=== PATIENT | male | born 1995 | race Caucasian/White ===

== ENCOUNTER 2023-02-06 12:13 | Outpatient (OUT) | payer BC, SELFPAY ==
--- NOTE | 2023-02-06 12:52 | US_ITS ---
[address] [address] Patient Name: CLAUDINE ROSALES MRN: [id number] date: 1995 Sex: M Assigned Patient Location: LAB Current Patient Location: Accession/Order Number: [id number] Exam Date: 02/06/2023 13:00 Report Date: 02/07/2023 05:44 At the request of: FRAN WEBB Procedure: US soft tissue head and neck EXAM: US soft tissue head and neck HISTORY: Occipital Lymphadenopathy R59.0 ; palpable lump right occipital region COMPARISON: None. TECHNIQUE: Percutaneous ultrasound evaluation. FINDINGS: Hypoechoic 4 x 3 x 3 mm structure with central fatty hilum and subcutaneous fat of the right occipital region corresponding to patient's palpable lump. No appreciable flow on color Doppler. US/US soft tissue head and neck IMPRESSION: 1. Nonspecific subcutaneous nodules; suspect lymph node or inspissated sebaceous gland cyst. No overtly suspicious characteristics. Electronically authenticated by: MATT BARTH Date: 02/07/2023 05:44
--- NOTE | 2023-02-06 12:52 | US_ITS ---
The [address] [address] Patient Name: CLAUDINE ROSALES MRN: [id number] date: 1995 Sex: M Assigned Patient Location: LAB Current Patient Location: LAB Accession/Order Number: [id number] Exam Date: 02/06/2023 13:00 Report Date: 02/07/2023 05:51 At the request of: FRAN WEBB Procedure: US chest EXAM: US chest HISTORY: Abdominal Wall Lump R22.2 ; 3 palpable lumps felt for 2 months (1 over left chest wall, 2 over right upper quadrant of abdomen) COMPARISON: None. TECHNIQUE: Percutaneous ultrasound evaluation. FINDINGS: All 3 subcutaneous nodules are similar in appearance located within the subcutaneous fat, slightly hyperechoic compared to surrounding fat, without appreciable internal blood flow. The 2 lesions overlying the right upper quadrant measures 13 x 8 x 3 mm and 9 x 9 x 4 mm. Lesion over left chest wall measures 10 x 10 x 3 mm. US/US chest IMPRESSION: Nonspecific subcutaneous nodules corresponding to patient's palpable lumps; suspect lipoma or possibly neurofibroma. Ultrasound-guided biopsy could be performed of one of the lesions if clinically indicated. Electronically authenticated by: MATT BARTH Date: 02/07/2023 05:51
[2023-02-06 13:01] LABS: Estimated Average Glucose 82 mg/dL; Glycohemoglobin A1C 4.5 % (4.5-6.2)
[2023-02-06 13:37] LABS: Basophils Absolute Auto 0.1 10^3/uL (0.0-0.1); Basophils Percent Auto 0.9 % (0.2-2.0); Eosinophils Absolute Auto 0.5 10^3/uL (0.0-0.7); Eosinophils Percent Auto 6.6 % (0.9-7.0); Hematocrit 44.2 % (42.0-54.0); Hemoglobin 15.2 g/dL (14.0-18.0); Immature Granulocytes Abs Auto 0.01 10^3/uL (0.00-0.03); Immature Granulocytes Pct Auto 0.1 % (0.0-0.5); Lymphocytes Absolute Auto 2.1 10^3/uL (1.2-3.8); Lymphocytes Percent Auto 30.8 % (20.5-60.0); Mean Corpuscular HGB Conc 34.4 g/dL (29.9-35.2); Mean Corpuscular Hemoglobin 30.4 pg (25.9-34.0); Mean Corpuscular Volume 88.4 fL (80.0-94.0); Mean Platelet Volume 10.4 fL (9.5-13.5); Monocytes Absolute Auto 0.8 10^3/uL (0.3-0.8); Monocytes Percent Auto 11.4 % (1.7-12.0); Neutrophils Absolute Auto 3.5 10^3/uL (1.4-6.5); Neutrophils Percent Auto 50.2 % (43.0-75.0); Platelet Count 245 10^3/uL (150-450); Red Cell Distribution Width 12.5 % (11.0-15.0); White Blood Count 6.9 10^3/uL (4.0-11.0)
[2023-02-06 13:39] LABS: Alanine Aminotransferase 19 U/L (16-63); Albumin Globulin Ratio 1.5; Albumin Level 4.1 g/dL (3.4-5.0); Alkaline Phosphatase 41 U/L (46-116); Anion Gap 7.9; Aspartate Amino Transferase 9 U/L (15-37); BUN Creatinine Ratio 10.3; Bilirubin Direct 0.1 mg/dL (0.0-0.2); Bilirubin Total 0.5 mg/dL (0.2-1.0); Calcium 8.9 mg/dL (8.5-10.1); Carbon Dioxide 30.7 mmol/L (21.0-32.0); Chloride 101 mmol/L (98-107); Chol HDL Ratio 2.5; Cholesterol 126 mg/dL (<=200); Estimated GFR (African America >60 (>=60); Estimated GFR (Non-African Ame >60 (>=60); Globulin 2.7 g/dL; Glucose 70 mg/dL (74-106); HDL Cholesterol 51 mg/dL (40-60); LDL Cholesterol Calculated 63.2 mg/dL; Potassium 3.6 mmol/L (3.5-5.1); Sodium 136 mmol/L (136-145); Total Protein 6.8 g/dL (6.4-8.2); Triglycerides 59 mg/dL (<=150); VLDL CHOLESTEROL 11.8 mg/dL
== END 2023-02-06 12:14 | disposition home or self-care (01) ==
LOC: LAB 12:19
PROVIDERS: PCP Family Medicine; Visit Provider Family Medicine
DX: Z00.00 Encounter for general adult medical examination without abnormal findings (principal); R59.0 Localized enlarged lymph nodes; R22.2 Localized swelling, mass and lump, trunk
CPT/HCPCS: 36415; 76536; 76604; 80048; 80061; 80076; 83036; 84443; 85025

== ENCOUNTER 2023-06-06 10:56 | Emergency (ER) | payer BC, SELFPAY ==
[2023-06-06 11:17] VITALS: BP 116/61; PULSE 63; RESP 18; TEMP 36.6; O2SAT 98; BMI 30.2
--- NOTE | 2023-06-06 11:22 | XR_ITS ---
The [address] [address] Patient Name: CLAUDINE ROSALES MRN: [id number] date: 1995 Sex: M Assigned Patient Location: ER Current Patient Location: ER Accession/Order Number: [id number] Exam Date: 06/06/2023 11:40 Report Date: 06/06/2023 13:12 At the request of: SHABANA BALLARD Procedure: XR shoulder LT min 2V PROCEDURE: XR shoulder LT min 2V HISTORY: injury ; acute left neck and shoulder pain; no known injury COMPARISON: None. FINDINGS: BONES:No fracture, acute abnormality, or significant arthropathy. SOFT TISSUES:No visible soft tissue swelling. EFFUSION:None visible. OTHER: Negative. XR/XR shoulder LT min 2V IMPRESSION: 1. Normal examination. Electronically authenticated by: MATT BARTH Date: 06/06/2023 13:12
--- NOTE | 2023-06-06 11:32 | XR_ITS ---
The [address] [address] Patient Name: CLAUDINE ROSALES MRN: [id number] date: 1995 Sex: M Assigned Patient Location: ER Current Patient Location: ER Accession/Order Number: [id number] Exam Date: 06/06/2023 11:40 Report Date: 06/06/2023 13:11 At the request of: SHABANA BALLARD Procedure: XR cervical spine 2-3V EXAMINATION: XR cervical spine 2-3V HISTORY: atraumatic pain ; acute left neck and shoulder pain; no known injury COMPARISON: No relevant comparison available. FINDINGS: BONES: No significant spondylosis, scoliosis, fracture, or visible bony lesion. DISC SPACES: Mild narrowing C2-3. PARASPINOUS: Negative. No paraspinous abnormality is seen. OTHER: Negative. XR/XR cervical spine 2-3V IMPRESSION: 1. No appreciable acute abnormality. 2. Mild narrowing of the C2-3 disc space compared to other cervical levels; developmental versus degenerative disc disease. Electronically authenticated by: MATT BARTH Date: 06/06/2023 13:11
--- NOTE | 2023-06-06 11:34 | ED.NECK1 ---
HPI - Neck Pain/Injury General Chief Complaint: Neck Pain/Injury Stated Complaint: NECK/SHOULDER PAIN Time Seen by Provider: 06/06/23 11:28 Source: patient Mode of arrival: walk-in Limitations: no limitations History of Present Illness HPI Narrative: 27-year-old male presents for left-sided neck pain. He was getting rate did take his dog outside and it just opened the door. He hadn't fallen and his arm was not pulled on but he developed sudden pain on the left side of his neck. It severe and worse in certain positions. It seems to go towards his shoulder but it's the left side of his neck that hurting the most. Related Data Previous Rx's Medication Instructions Recorded acetaminophen 300 mg-codeine 30 mg 1 tab PO Q6H PRN pain 5 days #20 06/06/23 tablet tabs cyclobenzaprine 10 mg tablet 10 mg PO TID PRN muscle spasm #20 06/06/23 tabs Allergies Allergy/AdvReac Type Severity Reaction Status Date / Time Penicillins AdvReac Severe Hives Verified 06/06/23 11:17 Review of Systems ROS Narrative A ten point review of systems is negative except as noted above. PFSH PFSH Social History Smoking status: Current every day smoker Exam Narrative Exam Narrative: Nurses note and vital signs reviewed and patient is not hypoxic. General: The patient appears uncomfortable and is standing when I walk into the room Skin: Warm, dry, no pallor noted. There is no rash noted. Head: Normocephalic, atraumatic Eye: Normal conjunctiva, no drainage Ears, Nose, Mouth, and Throat: oral mucosa is moist. Nares patent. Cardiovascular: Regular Rate and Rhythm Respiratory: Patient is in no distress, no accessory muscle use, lungs are clear to auscultation, no wheezing, rales or rhonchi Back: thoracic and lumbar spines are nontender. The patient has some tenderness on the left side of his neck where there is no bruise rash swelling or masses. No deformity in his shoulder. Radial pulse 2+. GI: Normal bowel sounds, no tenderness to palpation, no masses appreciated. No rebound, guarding, or rigidity noted. Musculoskeletal: The patient has no evidence of calf tenderness, no pitting edema, symmetrical pulses noted bilaterally Neurological: A&O, normal speech Psychiatric: Cooperative Constitutional Vital Signs, click to edit/add: Last Vital Signs Temp 97.8 F 06/06/23 11:17 Pulse 63 06/06/23 11:17 Resp 18 06/06/23 11:17 BP 116/61 06/06/23 11:17 Pulse Ox 98 06/06/23 11:17 O2 Del Method Room Air 06/06/23 11:17 Course Vital Signs Vital signs: Vital Signs Temperature 97.8 F 06/06/23 11:17 Pulse Rate 63 06/06/23 11:17 Respiratory Rate 18 06/06/23 11:17 Blood Pressure 116/61 06/06/23 11:17 Pulse Oximetry 98 06/06/23 11:17 Oxygen Delivery Method Room Air 06/06/23 11:17 Temperature 97.8 F 06/06/23 11:17 Pulse Rate 63 06/06/23 11:17 Respiratory Rate 18 06/06/23 11:17 Blood Pressure 116/61 06/06/23 11:17 Pulse Oximetry 98 06/06/23 11:17 Oxygen Delivery Method Room Air 06/06/23 11:17 MDM - Neck Pain/Injury MDM Narrative Medical decision making narrative: X-ray findings are discussed with the patient and he is feeling improved. Sling applied and application checked by me and found to be appropriate, he is neurovascularly intact and is able to be discharged home. Treatment diagnosis and follow up are discussed with the patient. Differential Diagnosis Differential diagnosis: Likely other (muscle strain, cervical radiculopathy) Imaging Data shoulder, C-spine x-rays: Radiologist's impression: Procedure: XR cervical spine 2-3V EXAMINATION: XR cervical spine 2-3V HISTORY: atraumatic pain ; acute left neck and shoulder pain; no known injury COMPARISON: No relevant comparison available. FINDINGS: BONES: No significant spondylosis, scoliosis, fracture, or visible bony lesion. DISC SPACES: Mild narrowing C2-3. PARASPINOUS: Negative. No paraspinous abnormality is seen. OTHER: Negative. IMPRESSION: 1. No appreciable acute abnormality. 2. Mild narrowing of the C2-3 disc space compared to other cervical levels; developmental versus degenerative disc disease. Electronically authenticated by: MATT BARTH Date: 06/06/2023 13:11 Procedure: XR shoulder LT min 2V PROCEDURE: XR shoulder LT min 2V HISTORY: injury ; acute left neck and shoulder pain; no known injury COMPARISON: None. FINDINGS: BONES:No fracture, acute abnormality, or significant arthropathy. SOFT TISSUES:No visible soft tissue swelling. EFFUSION:None visible. OTHER: Negative. IMPRESSION: 1. Normal examination. Electronically authenticated by: MATT BARTH Date: 06/06/2023 13:12 Discharge Plan Discharge Chief Complaint: Neck Pain/Injury Clinical Impression: Trapezius muscle strain Patient Disposition: Home, Self-Care Time of Disposition Decision: 13:53 Condition: Good Mode of Transportation: Private Vehicle Prescriptions / Home Meds: New cyclobenzaprine 10 mg tablet 10 mg PO TID PRN (Reason: muscle spasm) Qty: 20 0RF acetaminophen-codeine 300-30 mg tablet 1 tab PO Q6H PRN (Reason: pain) 5 Days Qty: 20 0RF Instructions: Muscle Strain (ED), How to Use a Sling (ED) Stand Alone Forms: Portal Instructions Referrals: Trent Roach MD [Primary Care Provider] - 1 week
--- NOTE | 2023-06-06 11:38 | PC.NURSE ---
pt was letting out dog this morning and felt spasm in L shoulder into neck. no injury or fall.,
[2023-06-06] MEDS: KETOROLAC TROMETHAMINE 60 MG/2 ML VIAL IM (12:27)
[2023-06-06] MEDS: ORPHENADRINE 60 MG/ 2 ML VIAL IM (12:27)
[2023-06-06] MEDS: MORPHINE SULFATE 4 MG/ML VIAL 10 MG IM (13:29)
== END 2023-06-06 14:11 | disposition home or self-care (01) ==
PROVIDERS: Emergency Provider Emergency Medicine; PCP Family Medicine
DX: S46.812A Strain of other muscles, fascia and tendons at shoulder and upper arm level, left arm, initial encounter (principal); X58.XXXA Exposure to other specified factors, initial encounter; F17.210 Nicotine dependence, cigarettes, uncomplicated
CPT/HCPCS: 72040; 73030; 96372; 99284

== ENCOUNTER 2023-10-09 20:47 | Emergency (ER) | payer BC, SELFPAY ==
[2023-10-09 20:51] VITALS: BP 117/81; PULSE 90; TEMP 36.8; O2SAT 98; BMI 29.2
--- NOTE | 2023-10-09 20:59 | ED_ITS ---
HPI HPI - General Adult General Chief complaint: Upper Respiratory Infection Stated complaint: NAUSEA, BODY ACHES, VOMITTING Time Seen by Provider: 10/09/23 20:54 Source: patient Mode of arrival: walk-in Limitations: no limitations History of Present Illness HPI narrative: Patient is a 27-year-old male who presents to the emergency department for a 1 day history of flulike illness. He reports headache, body aches and joint pain, sore throat, congestion, vomiting and diarrhea. He states he has not been able to hold anything down today and has not urinated and he thinks he needs IV fl uids. No medications taken prior to arrival for any of his symptoms. He believes that his children may be getting sick as well. No objective fevers at home. Related Data Home Medications ?Medication ?Instructions ?Recorded ?Confirmed buspirone 15 mg tablet 15 mg PO DAILY 10/09/23 10/09/23 hydroxyzine HCl 25 mg tablet 25 mg PO DAILY 10/09/23 10/09/23 sertraline 50 mg tablet 50 mg PO DAILY 10/09/23 10/09/23 Previous Rx's ?Medication ?Instructions ?Recorded zpzsuxpcdhinies-rrjltegjrbuxhvc-KD 10 ml PO Q6H PRN cold symptoms 10/09/23 2 mg-30 mg-10 mg/5 mL oral syrup #200 mL (Bromfed DM) ondansetron 4 mg disintegrating 4 mg PO Q6H PRN nausea and 10/09/23 tablet vomiting #12 tabs Allergies Allergy/AdvReac Type Severity Reaction Status Date / Time Penicillins AdvReac Severe Hives Verified 06/06/23 11:17 Opioid HPI Opioid Management Most Recent Opioid Data: Last Pain Scale 7 06/06/23 13:59 Review of Systems ROS Constitutional Denies: fever or chills Ears, nose, mouth, and throat Reports: throat pain and nasal congestion Cardiovascular Denies: chest pain Respiratory Denies: shortness of breath or cough Gastrointestinal Reports: nausea, vomiting and diarrhea; Denies: abdominal pain Musculoskeletal Denies: back pain Integumentary/Breast Denies: rash Neurological Reports: headache Endocrine Denies: excessive urination Hematologic/Lymphatic Denies: easy bruising or easy bleeding PFSH PFSH Social History Smoking status: Current every day smoker Exam Narrative Exam Narrative: Gen.: Awake, alert, in no distress Head: Normocephalic, atraumatic ENT: Moist mucous membranes, Bilateral TMs clear, no pharyngeal erythema with airway widely open and patent. Uvula midline Respiratory: No respiratory distress, lungs clear bilaterally Cardio: Regular rate and rhythm Gastrointestinal: Abdomen is soft, nondistended and nontender to palpation Extremities: Moves extremities equally Psych: Normal mood and affect Neuro: No focal neuro deficit Skin: Warm, dry, intact Constitutional Vital Signs, click to edit/add: Last Vital Signs Temp 98.3 F 10/09/23 20:51 Pulse 90 10/09/23 20:51 Resp 18 10/09/23 20:51 BP 117/81 10/09/23 20:51 Pulse Ox 98 10/09/23 20:51 O2 Del Method Room Air 10/09/23 20:51 Course Vital Signs Vital signs: Vital Signs Temperature 98.3 F 10/09/23 20:51 Pulse Rate 90 10/09/23 20:51 Respiratory Rate 18 10/09/23 20:51 Blood Pressure 117/81 10/09/23 20:51 Pulse Oximetry 98 10/09/23 20:51 Oxygen Delivery Method Room Air 10/09/23 20:51 Temperature 98.3 F 10/09/23 20:51 Pulse Rate 90 10/09/23 20:51 Respiratory Rate 18 10/09/23 20:51 Blood Pressure 117/81 10/09/23 20:51 Pulse Oximetry 98 10/09/23 20:51 Oxygen Delivery Method Room Air 10/09/23 20:51 Medical Decision Making MDM Narrative Medical decision making narrative: Patient is positive for influenza A. He has stable vital signs. Patient is insistent that he needs an IV as he has not urinated today and has vomited. He is in no distress in the ER. He will be discharged home with Eric Mccurdy to follow-up with PCP, return to the ER if symptoms change or worsen. Patient was given IV Zofran, Toradol, fluids. Medical Records Medical records reviewed: Yes I reviewed the patient's medical records Lab Data Lab results reviewed: Yes I reviewed the patient's lab results Labs: Lab Results 10/09/23 Range/Units 21:05 Influenza Type A Ag Positive A Influenza Type B Ag Negative SARS-CoV-2 Ag (CV2AG) Negative (NEGATIVE) Streptococcus Screen Negative Discharge Plan Discharge Stand Alone Forms: Portal Instructions Chief Complaint: Upper Respiratory Infection Clinical Impression: Influenza A Patient Disposition: Home, Self-Care Time of Disposition Decision: 21:44 Condition: Good Prescriptions / Home Meds: New dpfhkwgnmqjyzvh-spcuqidyn-EK [Bromfed DM] 2-30-10 mg/5 mL syrup 10 ml PO Q6H PRN (Reason: cold symptoms) Qty: 200 0RF ondansetron 4 mg tablet,disintegrating 4 mg PO Q6H PRN (Reason: nausea and vomiting) Qty: 12 0RF No Action hydroxyzine HCl 25 mg tablet 25 mg PO DAILY buspirone 15 mg tablet 15 mg PO DAILY sertraline 50 mg tablet 50 mg PO DAILY Print Language: Lithuanian Instructions: Influenza (ED) Referrals: Trent Roach MD [Primary Care Provider] - 1 week Discharge Date/Time: 10/09/23 22:51
--- OUTSIDE RECORDS SUMMARY | 2023-10-09 21:03 | XMS_ITS | CCD ---
Author Organization [facility] Care Team Providers Care Watch Manufacturing Supervisor Name Role Phone REQUEST, DR NONE LISTED Primary Care Unavaila ARTHUR Alexis Consulting Unavailable ARTHUR JENNINGS Attending Unavailable ARTHUR JENNINGS Admitting Unavailable NO FAMILY, PHYSICIAN Primary Care Unavailable Bob Tate Attending Unavailable Bob Tate Admitting Unavailable Allergies Allergy Classification Reported Allergen(s) Allergy Type Date of Onset Reaction(s) Facility (1 source) Amoxicillin Drug Allergy 07-10-2020 [facility] Repository (1 source) Penicillins Drug allergy (disorder) 11-19-2012 [facility] Repository Problems Problem Classification Problem Date Documented Date Episodic/Chronic Fluid and electrolyte disorders (1 source) Dehydration; Translations: [DEHYDRATION] Onset: 06-17-2022 Episodic Nausea and vomiting (3 sources) Nausea with vomiting, unspecified; Translations: [NAUSEA WITH VOMITING UNSPECIFIED] Onset: 06-15-2022 Episodic Noninfectious gastroenteritis (1 source) Noninfective gastroenteritis and colitis, unspecified; Translations: [NONINFECTIVE GE AND COLITIS UNS] Onset: 06-17-2022 Episodic Substance-related disorders (1 source) Nicotine dependence, cigarettes, uncomplicated; Translations: [NICOTINE DEPEND CIGARETTES UNCOMP] Onset: 06-17-2022 Chronic Unclassified (1 source) UNVACCINATED FOR COVID-19; Translations: [UNVACCINATED FOR COVID-19] Onset: 06-17-2022 Unclassified (1 source) Encounter for fertility testing; Translations: [Encounter for fertility testing] Onset: 11-24-2022 Viral infection (1 source) COVID-19; Translations: [COVID-19] Onset: 06-17-2022 Results Test Name Value Interpretation Reference Range Facil ity Semen Analysis, Fertilityon 11-24-2022 Debris/Round Cells Moderate Normal [facility] Comment on above: Order Comment: Lc recinos of Collection:: Masturbation Has the patient had a vasectomy?: N Type of Specimen Container:: Sterile Container Abstinence Period:: 48 H Kept at body temperature?: Y Any Collection or Transport Problems?: NO Performed By: #### S EMCOMP #### [facility] [address] [place] [address] [place] Immotile Sperm 31 % Normal [facility] Comment on above: Order Comment: Metho d of Collection:: Masturbation Has the patient had a vasectomy?: N Type of Specimen Container:: Sterile Container Abstinence Period:: 48 H Kept at body temperature?: Y Any Collection or Transport Problems?: NO Performed By: #### S EMCOMP #### [place] [address] [place] Non-Progression Sperm Motili 16 % Normal [facility] Comment on above: Order Comment: Metho d of Collection:: Masturbation Has the patient had a vasectomy?: N Type of Specimen Container:: Sterile Container Abstinence Period:: 48 H Kept at body temperature?: Y Any Collection or Transport Problems?: NO Performed By: #### S EMCOMP #### [address] Normal Sperm Morphology 11.0 % Normal >=4.0 [facility] Comment on above: Order Comment: Metho d of Collection:: Masturbation Has the patient had a vasectomy?: N Type of Specimen Container:: Sterile Container Abstinence Period:: 48 H Kept at body temperature?: Y Any Collection or Transport Problems?: NO Performed By: #### S EMCOMP #### [place] [address] [place] Rapid Progression Sperm Motili 53 % Normal [facility] Comment on above: Order Comment: Metho d of Collection:: Masturbation Has the patient had a vasectomy?: N Type of Specimen Container:: Sterile Container Abstinence Period:: 48 H Kept at body temperature?: Y Any Collection or Transport Problems?: NO Performed By: #### S EMCOMP #### [place] [id number] [place] Semen Appearance Normal Normal Normal [facility] Comment on above: Order Comment: Metho d of Collection:: Masturbation Has the patient had a vasectomy?: N Type of Specimen Container:: Sterile Container Abstinence Period:: 48 H Kept at body temperature?: Y Any Collection or Transport Problems?: NO Performed By: #### S EMCOMP #### [address] Semen Comment . Normal [facility] Comment on above: Order Comment: Metho d of Collection:: Masturbation Has the patient had a vasectomy?: N Type of Specimen Container:: Sterile Container Abstinence Period:: 48 H Kept at body temperature?: Y Any Collection or Transport Problems?: NO Result Comment: No A bnormal specimen characteristics noted. PERFORMED BY: [place] [address] PATHOLOGIST ALTERATIONS WORKROOM CLERK ANA GRACIA M.D. Performed By: #### S EMCOMP #### [address] Semen Liquefaction Normal Normal <=60 min [facility] Comment on above: Order Comment: Metho d of Collection:: Masturbation Has the patient had a vasectomy?: N Type of Specimen Container:: Sterile Container Abstinence Period:: 48 H Kept at body temperature?: Y Any Collection or Transport Problems?: NO Performed By: #### S EMCOMP #### [address] Semen pH 8.5 Normal >=7.2 [facility] Comment on above: Order Comment: Metho d of Collection:: Masturbation Has the patient had a vasectomy?: N Type of Specimen Container:: Sterile Container Abstinence Period:: 48 H Kept at body temperature?: Y Any Collection or Transport Problems?: NO Performed By: #### S EMCOMP #### [place] [address] [place] Semen Viscosity Normal Normal Normal [facility] Comment on above: Order Comment: Metho d of Collection:: Masturbation Has the patient had a vasectomy?: N Type of Specimen Container:: Sterile Container Abstinence Period:: 48 H Kept at body temperature?: Y Any Collection or Transport Problems?: NO Performed By: #### S EMCOMP #### [facility] [address] Semen Volume 3.5 mL Normal >=1.5 [facility] Comment on above: Order Comment: Metho d of Collection:: Masturbation Has the patient had a vasectomy?: N Type of Specimen Container:: Sterile Container Abstinence Period:: 48 H Kept at body temperature?: Y Any Collection or Transport Problems?: NO Performed By: #### S EMCOMP #### [address] Sperm Concentration 15.5 Normal >=15 [facility] Comment on above: Order Comment: Metho d of Collection:: Masturbation Has the patient had a vasectomy?: N Type of Specimen Container:: Sterile Container Abstinence Period:: 48 H Kept at body temperature?: Y Any Collection or Transport Problems?: NO Performed By: #### S EMCOMP #### [address] Total Motility (DE+SOLUTION SPEC) 69.0 % Normal >=40 (DE+SOLUTION SPEC) [facility] Comment on above: Order Comment: Metho d of Collection:: Masturbation Has the patient had a vasectomy?: N Type of Specimen Container:: Sterile Container Abstinence Period:: 48 H Kept at body temperature?: Y Any Collection or Transport Problems?: NO Result Comment: Resu lts questionable due to age of specimen. Performed By: #### S EMCOMP #### [address] WBC Concent, Semen <1.0 Normal <1.0 [facility] Comment on above: Order Comment: Metho d of Collection:: Masturbation Has the patient had a vasectomy?: N Type of Specimen Container:: Sterile Container Abstinence Period:: 48 H Kept at body temperature?: Y Any Collection or Transport Problems?: NO Performed By: #### S EMCOMP #### [address] Covid-19 PCR (CVDTBH)on SARS-CoV-2 (COVID-19) RNA ADDIS+probe Ql (Unsp spec) Detected Critically abnormal NOT DETECTED [facility] Comment on above: Result Comment: This test is not yet approved or cleared by the [place] FDA. When there are no FDA-approved or cleared tests available, and other criteria are met, FDA can make tests available under an emergency access mechanism called an Emergency Use Authorization (EUA). The EUA for this test is supported by the [place] of Health and Human Service's declaration that circumstances exist to justify the emergency use of in vitro diagnostics for the detection and/or diagnosis of the virus that causes COVID-19. This EUA will remain in effect for the duration of the COVID-19 declaration justifying emergency of IVDs, unless it is terminated or revoked by the FDA (after which the test may no longer be used). Performed By: #### C VDTB #### [facility] [address] [place] [address] Dr. Krishan Miller INFLUENZA A AND B AGon 06-15 [facility] SEE BELOW Normal [facility] Comment on above: Result Comment: Nega tive for Flu A protein angiten. Infection due to Flu A cannot be ruled out. Flu A angiten in the sample may be below the detection limit of the test. Performed By: #### I NFLUAB #### [facility] [address] [place] [address] Dr. Krish[facility] BEL[facility] Normal [facility] Comment on above: Result Comment: Nega tive for Flu B protein antigen. Infection due to Flu B cannot be ruled out. Flu B antigen in the sample may be below the detection limit of the test. Performed By: #### I NFLUAB #### [facility] [address] [place] [address] Dr. Krishan Miller INFLUENZA A AG Negative Normal NEGATIVE SEE COMMENT [facility] Comment on above: Performed By: #### I NFLUAB #### [facility] [address] [place] [address] Dr. Krishan Miller INFLUENZA B AG Negative Normal NEGATIVE SEE COMMENT [facility] Comment on above: Performed By: #### I NFLUAB #### [facility] [address] [place] [address] [address] Krishan Miller INTERNAL CONTROLS Within Normal Limits Normal Within Normal Limits [facility] Comment on above: Performed By: #### I NFLUAB #### [facility] [id number] Krishan Miller Registrationon 12-08-2021 Registration [id number]:127 Normal [facility] Consenton 11-30-2021 Consent [id number]#[id number]:127 Normal [facility] ALCOHOLon 05-22-2019 Ethanol [Mass/Vol] NONE DETECTED Normal [facility] Comment on above: Result Comment: Divi de by 1000 to convert mg/dL to percent. Example: 100mg/dL = 0.1%. Performed By: #### 2 0621 #### [facility] [address] CBC COMPLETE BLOOD COUNTon 1 07-22-2018 Erythrocyte distribution width (RBC) [Ratio] 12.9 % Normal 11.5-15.0 [facility] Comment on above: Performed By: #### 2 0621 #### [facility] [address] [place], [place] [id number] [place] [address] Hematocrit (Bld) [Volume fraction] 47.7 % Normal 39.0-50.0 [facility] Comment on above: Performed By: #### 2 0621 #### [facility] [address] [place] [address], [facility] Hemoglobin (Bld) [Mass/Vol] 16.1 g/dL Normal 13.0-17.0 [facility] Comment on above: Performed By: #### 2 0621 #### [facility] [address] [facility] [place] [address], [facility] MCH (RBC) [Entitic mass] 30.5 pg Normal 27.0-33.0 [facility] Comment on above: Performed By: #### 2 0621 #### [facility] [address] [facility]. [address] MCHC (RBC) [Mass/Vol] 33.8 g/dL Normal 32.0-35.0 [facility] Comment on above: Performed By: #### 2 0621 #### [facility] [address] [facility] [address], [facility] MCV (RBC) [Entitic vol] 90.3 fL Normal 82.0-98.0 [facility] Comment on above: Performed By: #### 2 0621 #### [facility] [address] Nucleated RBC/100 WBC (Bld) [Ratio] 0 % Normal 0-0 [facility] Comment on above: Performed By: #### 2 0621 #### [facility] [address] PLAT CNT 239 10*3/uL Normal 150-400 [facility] Comment on above: Performed By: #### 2 0621 #### [facility] [address] RBC (Bld) [#/Vol] 5.28 10*6/uL Normal 4.20-5.70 [facility] Comment on above: Performed By: #### 2 0621 #### [facility] [address] [place] [address], [facility] WBC (Bld) [#/Vol] 7.47 10*3/uL Normal 4.00-10.60 [facility] Comment on above: Performed By: #### 2 0621 #### [facility] [address] COMP METABOLIC PANELon 05-22 Albumin [Mass/Vol] 5.0 g/dL Normal 3.5-5.7 [facility] Comment on above: Performed By: #### 2 0621 #### [facility] [address] [place] [address], [facility] ALKALINE PHOSPH 39 IU/L Normal 34-104 [facility] Comment on above: Performed By: #### 2 0621 #### [facility] [address] [place] [address], [place] ALT [Catalytic activity/Vol] 73 U/L High 7-52 [facility] Comment on above: Performed By: #### 2 0621 #### [facility] [address] [place] [address], [place] AST [Catalytic activity/Vol] 38 U/L Normal 13-39 [facility] Comment on above: Performed By: #### 2 0621 #### [facility] [address] [place] [address], [place] Bilirubin [Mass/Vol] 0.5 mg/dL Normal 0.3-1.0 [facility] Comment on above: Performed By: #### 2 0621 #### [facility] [address] [place] [address], [place] Calcium [Mass/Vol] 9.7 mg/dL Normal 8.6-10.3 [facility] Comment on above: Performed By: #### 2 0621 #### [facility] [address] [place] [address], [place] Chloride [Moles/Vol] 101 mmol/L Normal 98-107 [facility] Comment on above: Performed By: #### 2 0621 #### [facility] [address] [place] [address], [place] CO2 [Moles/Vol] 30 mmol/L Normal 21-31 [facility] Comment on above: Performed By: #### 2 0621 #### [facility] [address] [place] [address], [place] Creatinine [Mass/Vol] 0.94 mg/dL Normal 0.70-1.30 [facility] Comment on above: Performed By: #### 2 0621 #### [facility] [address] [place] [address], [place] GFR/1.73 sq M predicted among blacks MDRD (S/P/Bld) [Vol rate/Area] mL/min/{1.73_m2} Normal >60 [facility] Comment on above: Performed By: #### 2 0621 #### [facility] [address] [place] [address], [place] GFR/1.73 sq M predicted among non-blacks MDRD (S/P/Bld) [Vol rate/Area] mL/min/{1.73_m2} Normal >60 [facility] Comment on above: Performed By: #### 2 0621 #### [facility] [address] [place] [address], [place] Glucose [Mass/Vol] 73 mg/dL Normal 70-100 [facility] Comment on above: Performed By: #### 2 0621 #### [facility] [address] [place] [address], [place] Potassium [Moles/Vol] 4.1 mmol/L Normal 3.5-5.1 [facility] Comment on above: Performed By: #### 2 0621 #### [facility] [address] [place] [address], [place] Protein [Mass/Vol] 7.6 g/dL Normal 6.0-8.3 [facility] Comment on above: Performed By: #### 2 0621 #### [facility] [address] [place] [address], [place] Sodium [Moles/Vol] 139 mmol/L Normal 136-145 [facility] Comment on above: Performed By: #### 2 0621 #### [facility] [address] HEP C GENOTYPING [id number] HEP C GENOTYPING [address]a Normal [facility] Comment on above: Result Comment: INTE RPRETIVE INFORMATION: Hepatitis C Genotyping Hepatitis C Viral RNA is tested using reverse linoleum layer helper polymerase chain reaction (RT-PCR) to amplify a specific portion of the 5' untranslated region (5' UTR) of the viral genome. The amplified nucleic acid is sequenced bi-directionally using dye-terminator chemistry ([employer] Sequencing data is compared to a database of characterized sequences. Isolates of hepatitis C virus are grouped into six major genotypes (1-6). These genotypes are subtyped according to sequence characteristics. Due to high conservation of the 5' un-translated region of the HCV genome, this test has limitations in differentiating subtype 1a from 1b. Therefore, these subtypes will be reported as 1a or 1b. In rare instances, Type 6 virus may be misclassified as Type 1. Test developed and characteristics determined by [facility]. See Compliance Statement B: Going/CS Performed by [facility], [address] [place] [id number] [email or web address], Gio Powell MD, Lab. Director HEP C RNA PCR QNTon 05-22-20 19 COPIES/ ML 6.31 IU/mL Normal [facility] Comment on above: Order Comment: This test was performed using the Cordova Real Time HCV PCR assay whichhas a dynamic range of 12-100,000,000 IU/Ml (1.08-8.0 log IU/mL). It isnot designed for screening blood, plasma, serum or tissue donors forHCV. Currently, the second- and third-generation enzyme immunoassays(EIA-2 and EIA-3) for hepatitis C virus antibody (anti-HCV) are the mostpractical screening tests for the diagnosis of HCV infection. The needfor and the choice of supplementary or confirmatory tests depend on theclinical setting and the likelihood of a true-positive EIA result.Detection of HCV RNA in serum by polymerase chain reaction (PCR) assayis the gold standard for the diagnosis of HCV infection. Performed By: #### 0 0121 #### [facility] [address] HCV PCR INTERP DETECTED Abnormal Not Detected [facility] Comment on above: Order Comment: This test was performed using the Cordova Real Time HCV PCR assay whichhas a dynamic range of 12-100,000,000 IU/Ml (1.08-8.0 log IU/mL). It isnot designed for screening blood, plasma, serum or tissue donors forHCV. Currently, the second- and third-generation enzyme immunoassays(EIA-2 and EIA-3) for hepatitis C virus antibody (anti-HCV) are the mostpractical screening tests for the diagnosis of HCV infection. The needfor and the choice of supplementary or confirmatory tests depend on theclinical setting and the likelihood of a true-positive EIA result.Detection of HCV RNA in serum by polymerase chain reaction (PCR) assayis the gold standard for the diagnosis of HCV infection. Performed By: #### 0 0121 #### [facility] [address] HEP C RNA QNT [id number] IU/mL Normal [facility] Comment on above: Order Comment: This test was performed using the Cordova Real Time HCV PCR assay whichhas a dynamic range of 12-100,000,000 IU/Ml (1.08-8.0 log IU/mL). It isnot designed for screening blood, plasma, serum or tissue donors forHCV. Currently, the second- and third-generation enzyme immunoassays(EIA-2 and EIA-3) for hepatitis C virus antibody (anti-HCV) are the mostpractical screening tests for the diagnosis of HCV infection. The needfor and the choice of supplementary or confirmatory tests depend on theclinical setting and the likelihood of a true-positive EIA result.Detection of HCV RNA in serum by polymerase chain reaction (PCR) assayis the gold standard for the diagnosis of HCV infection. Performed By: #### 0 0121 #### [facility] [address] HEPATITIS A ABS TOTAL [id number] n 05-22-2019 HEP A ABS(TOTAL) Negative Normal Negative [facility] Comment on above: Result Comment: Perf ormed by [facility], [address] [facility] [address] [email or web address], Gio Powell MD, Lab. Director HEPATITIS B CORE ANTIBODYon 05-22-2019 HEP B CORE AB NONREACTIVE Normal NONREACTIVE [facility] Comment on above: Performed By: #### 2 0621 #### [facility] [address] HEPATITIS B SURFACE ANTIBODY QUANTon 05-22-2019 HEP B SURF AB 0.28 mIU/ml Normal [facility] Comment on above: Result Comment: INTE RPRETATION: NONREACTIVE<8.00 mIU/mL INDETERMINATE8.00 - 12.00 mIU/mL REACTIVE>12 mIU/mL Performed By: #### 2 0621 #### [facility] [address] HEPATITIS B SURFACE ANTIGEN QUALon 05-22-2019 HEP B SURF AG QUAL NONREACTIVE Normal NONREACTIVE [facility] Comment on above: Performed By: #### 2 0621 #### [facility] [address] HIV COMBO 4Gon 05-22-2019 HIV COMBO Negative Normal NEGATIVE [facility] Comment on above: Performed By: #### 0 0121 #### [facility] [address] LIVER FIBROSIS CHRONIC VIRAL [id number] 05-22-2019 NGCKN-4-NHZZOPLERIL IN,FIBROMETER 270 mg/dL Normal 131-293 [facility] ALT [Catalytic activity/Vol] 92 U/L High 5-50 [facility] Amylase [Catalytic activity/Vol] 18 U/L Normal 7-51 [facility] AST [Catalytic activity/Vol] 45 U/L Normal 9-50 [facility] CIRRHOMETER PATIENT SCORE 0.01 Normal [facility] EER FIBROMETER REPORT See Note Normal [facility] Comment on above: Result Comment: Tonio saunders [facility] Enhanced Report using either link below: -Direct access: [email or web address] -Enter Username, Password: [email or web address] Username: [email or web address] Password: [email or web address] FIBROMETER INTERPRETATION See Report Normal [facility] Comment on above: Result Comment: [17] [16] INTERPRETIVE INFORMATION: Fibrometer Interpretation Calculations for the final report are based on accurate data for age, gender, and platelet count. If any of this information needs to be corrected, please contact [employer] Client Services to request a recalculation. Client Services may be contacted at . The [employer] FibroMeter profile serves as a surrogate marker of liver fibrosis, cirrhosis, and necro-inflammatory activity. A proprietary algorithm calculates and compares results from 7 blood markers along with age and gender to provide a patient score (from 0 to 1) and a correlated fibrosis stage (Metavir F0-F4) and activity grade (Metavir A0-A3). The fibrosis/cirrhosis score is further evaluated by a rules-based system to detect anomalous profile results which may modify the fibrosis/cirrhosis score as needed. Results should be interpreted in conjunction with the patient's clinical history; particularly when the rules-based system has modified the scores. Legend: -Metavir is a histological scoring system for determining the extent of liver fibrosis and inflammation. STAGE OF FIBROSIS (F scale) F0 = no fibrosis F1 = portal fibrosis without septa F2 = portal fibrosis with few septa F3 = numerous septa without cirrhosis F4 = cirrhosis GRADE OF NECRO-INFLAMMATORY ACTIVITY (A scale) A0 = no activity A1 = mild activity A2 = moderate activity A3 = severe activity -Platelet count result provided by client. -The Prothrombin Index test expresses the Prothrombin Time (PT) as a percentage of normal, and is used to standardize PT results across different instrument/reagent combinations. Test developed and characteristics determined by [facility]. See Compliance Statement B: Going/CS Performed by [facility], [address] [place] [id number] [email or web address], Gio Powell MD, Lab. Director FIBROMETER PLATELET CT 239 k/uL Normal [facility] FIBROMETER PLATELET IND 95 % Normal 90-120 [facility] FIBROMETER PLATELET SCORE 0.3 Normal [facility] FIBROSIS METAVIR CLASSIFICATION F1[F1-F2] Normal [facility] Comment on above: Result Comment: INTE RPRETIVE INFORMATION: Fibrosis Metavir Classification FibroMeter (fibrosis score) comments F0/F1 Equal probability between F0 and F1 F1[F1-F2] Predominance of F1, but F2 is possible F2[F1-F2] Predominance of F2, but F1 is possible F2[F1-F3] Predominance of F2, but F1 and F3 are possible F2/F3 Equal probability between F2 and F3 F3[F2-F4] Predominance of F3, but F2 and F4 are possible F3[F3-F4] Predominance of F3, but F4 is possible F4[F3-F4] Predominance of F4, but F3 is possible INFLAMETER METAVIR CLASSIFICATION A1/A2 Normal [facility] Comment on above: Result Comment: INTE RPRETIVE INFORMATION: InflaMeter Metavir Classification InflaMeter (activity score) comments A0/A1 Equal probability between A0 and A1 A1/A2 Equal probability between A1 and A2 A2/A3 Equal probability between A2 and A3 INFLAMETER PATIENT SCORE 0.51 Normal [facility] Urea nitrogen [Mass/Vol] 10 mg/dL Normal 7-25 [facility] Comment on above: Performed By: #### 2 0621 #### [address] PROTHROMBIN TIMEon 9 INR Coag (PPP) [Relative time] 1.04 {INR} Normal 0.91-1.16 [facility] Comment on above: Result Comment: ACCC P RECOMMENDED INR FOR WARFARIN THERAPY ------ ------- CONDITION INR PROPHYLAXIS OF VENOUS THROMBOSIS 2-3 (HIGH-RISK SURGERY) TREATMENT OF VENOUS THROMBOSIS 2-3 TREATMENT OF PULMONARY EMBOLISM 2-3 PREVENTION OF SYSTEMIC EMBOLISM: 2-3 ACUTE MYOCARDIAL INFARCTION TISSUE HEART VALVES VALVULAR HEART DISEASE ATRIAL FIBRILLATION RECURRENT SYSTEMIC EMBOLISM MECHANICAL HEART VALVE 2.5-3.5 FROM: ORAL ANTICOAGULANTS. MECHANISM OF ACTION, CLINICAL EFFECTIVENESS, AND OPTIMAL THERAPEUTIC RANGE. CHEST 1995;108:231S-246S. Performed By: #### 2 0621 #### [facility] [address] PT Coag (PPP) [Time] 13.6 s Normal 12.3-14.8 [facility] Comment on above: Result Comment: ALL RESULTS MUST BE INTERPRETED WITH RESPECT TO BLOOD DRAWING ARTIFACT OR DILUTION ERROR OF ANTICOAGULANT AT THE TIME OF SAMPLING. Performed By: #### 2 0621 #### [facility] [address] TOX PANEL URINEon 05-22-2019 50 THC Negative Normal NEGATIVE [facility] Comment on above: Performed By: #### 2 0621 #### [facility] [address] BARBITURATES Negative Normal NEGATIVE [facility] Comment on above: Performed By: #### 2 0621 #### [facility] [address] Benzodiazepines Ql (U) Negative Normal NEGATIVE [facility] Comment on above: Performed By: #### 2 0621 #### [facility] [address] [facility] [address], [facility] Cocaine Ql (U) Negative Normal NEGATIVE The [facility] Comment on above: Performed By: #### 2 0621 #### [facility] [address] [place] [address], [facility] Methadone Ql (U) Negative Normal NEGATIVE [facility] Comment on above: Performed By: #### 2 0621 #### [facility] [address] [place] [address], [facility] MONO AMPHET Negative Normal NEGATIVE The [facility] Comment on above: Performed By: #### 2 0621 #### [facility] [address] [place] [address], [facility] Opiates Ql (U) Negative Normal NEGATIVE The [facility] Comment on above: Performed By: #### 2 0621 #### [facility] [address] Phencyclidine Ql (U) Negative Normal NEGATIVE [facility] Comment on above: Performed By: #### 2 0621 #### [facility] [address] PROPOXYPHENE Negative Normal NEGATIVE The [facility] Comment on above: Performed By: #### 2 0621 #### [facility] [address] TRICYCLICS Negative Normal NEGATIVE [facility] Comment on above: Performed By: #### 2 0621 #### [address] US LIVER WITH ELASTOGRAPHYon 04-30-2019 US LIVER WITH ELASTOGRAPHY [facility] Department of Radiology [address] [place] [id number] Patient Name: STEPHEN ROSALES : 1995 Sex: M Age: Race: White Pt. Location: 262 Patient Status: D Ordered Date: 11/16/2018 10:55:00 AM Completed Date: 04/30/2019 08:32 AM Requesting Provider: RELL PRITCHETT Attending Provider: RELL PRITCHETT Report Copy To: Signs & Symptoms: B18.2 Chronic viral hepatitis C I10 History: [place] Comments: , , , Ordering Provider - RELL PRITCHETT MD , Exam: US LIVER WITH ELASTOGRAPHY US LIVER WITH ELASTOGRAPHY 04/30/2019 8:32 AM EDT SIGNS AND SYMPTOMS: B18.2 Chronic viral hepatitis C I10 TECHNOLOGIST COMMENTS: QUESTION FOR THE RADIOLOGIST: , , , Ordering Provider - RELL PRITCHETT MD , TECHNIQUE: Limited abdominal ultrasound evaluating the liver was performed as well as dedicated elastography to assess for possible fibrosis. COMPARISON: none FINDINGS: LIVER: Liver is normal in echogenicity. No morphological features of cirrhosis. No focal mass is identified. No intra or extrahepatic biliary duct dilatation is identified. Normal antegrade flow is seen in the main portal vein with a flow rate of 51 cm/s. The gallbladder appeared unremarkable. ELASTOGRAPHY: The median tissue stiffness was 5.69 kPa and the average tissue stiffness was 6.21 kPa, with a standard deviation of 1.04 kPa, which corresponds to Normal-mild (F0-F1) grading of fibrosis. IMPRESSION: 1. Unremarkable appearance to liver. 2. Elastography suggests Normal-mild (F0-F1) probability of clinical significance fibrosis. Electronically signed by:Rj Maurice. Transcribed by: [email or web address], User Resident: Electronically Signed by: RJ MAURICE @ 04/30/2019 10:11 AM [facility] Comment on above: Order Comment: , , = ========= , Ordering Provider - RELL PRITCHETT MD , ALCOHOLon 06-13-2018 Ethanol [Mass/Vol] NONE DETECTED Normal [facility] Comment on above: Result Comment: Divi de by 1000 to convert mg/dL to percent. Example: 100mg/dL = 0.1%. Performed By: #### 2 0621 #### [facility] [address] [place] [address], [facility] CBC COMPLETE BLOOD COUNTon 1 08-14-2017 Erythrocyte distribution width (RBC) [Ratio] 12.7 % Normal 11.5-15.0 [facility] Comment on above: Performed By: #### 5 0608 #### [facility] [address] [place] [address], [facility] Hematocrit (Bld) [Volume fraction] 43.7 % Normal 39.0-50.0 [facility] Comment on above: Performed By: #### 5 0608 #### [facility] [address] [place] [address], [facility] Hemoglobin (Bld) [Mass/Vol] 15.7 g/dL Normal 13.0-17.0 [facility] Comment on above: Performed By: #### 5 0608 #### [facility] [address] [place] [address], [facility] MCH (RBC) [Entitic mass] 30.4 pg Normal 27.0-33.0 [facility] Comment on above: Performed By: #### 5 0608 #### [facility] [address] [place] [address], [facility] MCHC (RBC) [Mass/Vol] 35.9 g/dL High 32.0-35.0 [facility] Comment on above: Performed By: #### 5 0608 #### [facility] [address] MCV (RBC) [Entitic vol] 84.7 fL Normal 82.0-98.0 [facility] Comment on above: Performed By: #### 5 0608 #### [facility] [address] Nucleated RBC/100 WBC (Bld) [Ratio] 0 % Normal 0-0 [facility] Comment on above: Performed By: #### 5 0608 #### [facility] [address] PLAT CNT 204 10*3/uL Normal 150-400 [facility] Comment on above: Performed By: #### 5 0608 #### [facility] [address] RBC (Bld) [#/Vol] 5.16 10*6/uL Normal 4.20-5.70 [facility] Comment on above: Performed By: #### 5 0608 #### [facility] [address] WBC (Bld) [#/Vol] 6.69 10*3/uL Normal 4.00-10.60 [facility] Comment on above: Performed By: #### 5 0608 #### [facility] [address] COMP METABOLIC PANELon 06-13 Albumin [Mass/Vol] 4.7 g/dL Normal 3.5-5.7 [facility] Comment on above: Performed By: #### 0 0121 #### [facility] [address] ALKALINE PHOSPH 37 IU/L Normal 34-104 The [facility] Comment on above: Performed By: #### 0 0121 #### [facility] [address] ALT [Catalytic activity/Vol] 254 U/L High 7-52 [facility] Comment on above: Performed By: #### 0 0121 #### [facility] [address] [place] [address], [place] AST [Catalytic activity/Vol] 111 U/L High 13-39 [facility] Comment on above: Performed By: #### 0 0121 #### [facility] [address] [place] [address], [place] Bilirubin [Mass/Vol] 0.7 mg/dL Normal 0.3-1.0 [facility] Comment on above: Performed By: #### 0 0121 #### [facility] [address] [place] [address], [place] Calcium [Mass/Vol] 9.3 mg/dL Normal 8.6-10.3 [facility] Comment on above: Performed By: #### 0 0121 #### [facility] [address] [place] [address], [place] Chloride [Moles/Vol] 103 mmol/L Normal 98-107 [facility] Comment on above: Performed By: #### 0 0121 #### [facility] [address] [place] [address], [place] CO2 [Moles/Vol] 29 mmol/L Normal 21-31 [facility] Comment on above: Performed By: #### 0 0121 #### [facility] [address] [place] [address], [place] Creatinine [Mass/Vol] 0.83 mg/dL Normal 0.70-1.30 [facility] Comment on above: Performed By: #### 0 0121 #### [facility] [address] [place] [address], [place] GFR/1.73 sq M predicted among blacks MDRD (S/P/Bld) [Vol rate/Area] mL/min/{1.73_m2} Normal >60 [facility] Comment on above: Performed By: #### 0 0121 #### [facility] [address] [place] [address], [facility] GFR/1.73 sq M predicted among non-blacks MDRD (S/P/Bld) [Vol rate/Area] mL/min/{1.73_m2} Normal >60 [facility] Comment on above: Performed By: #### 0 0121 #### [facility] [address] [place] [address], [place] Glucose [Mass/Vol] 99 mg/dL Normal 70-100 The [facility] Comment on above: Performed By: #### 0 0121 #### [facility] [address] [place] [address], [place] Potassium [Moles/Vol] 4.3 mmol/L Normal 3.5-5.1 [facility] Comment on above: Performed By: #### 0 0121 #### [facility] [address] [place] [address], [facility] Protein [Mass/Vol] 6.9 g/dL Normal 6.0-8.3 [facility] Comment on above: Performed By: #### 0 0121 #### [facility] [address] [place] [address], [place] Sodium [Moles/Vol] 138 mmol/L Normal 136-145 [facility] Comment on above: Performed By: #### 0 0121 #### [facility] [address] [place] [address], [place] Urea nitrogen [Mass/Vol] 12 mg/dL Normal 7-20 [facility] Comment on above: Performed By: #### 0 0121 #### [facility] [address] [place] [address], [place] HEP C GENOTYPING 22508mm HEP C GENOTYPING 3a Normal [facility] Comment on above: Result Comment: INTE RPRETIVE INFORMATION: Hepatitis C Genotyping Hepatitis C Viral RNA is tested using reverse linoleum layer helper polymerase chain reaction (RT-PCR) to amplify a specific portion of the 5' untranslated region (5' UTR) of the viral genome. The amplified nucleic acid is sequenced bi-directionally using dye-terminator chemistry ([employer] Sequencing data is compared to a database of characterized sequences. Isolates of hepatitis C virus are grouped into six major genotypes (1-6). These genotypes are subtyped according to sequence characteristics. Due to high conservation of the 5' un-translated region of the HCV genome, this test has limitations in differentiating subtype 1a from 1b. Therefore, these subtypes will be reported as 1a or 1b. In rare instances, Type 6 virus may be misclassified as Type 1. Test developed and characteristics determined by [facility]. See Compliance Statement B: Going/ Performed by [facility], [address] [place] [id number] [email or web address], Gio Powell MD - Lab. Director HEP C RNA PCR QNTon 06-13-20 18 COPIES/ ML 5.77 IU/mL Normal [facility] Comment on above: Order Comment: This test was performed using the Cordova Real Time HCV PCR assay which has a dynamic range of 12-100,000,000 IU/Ml (1.08-8.0 log IU/mL). It is not designed for screening blood, plasma, serum or tissue donors for HCV. Currently, the second- and third-generation enzyme immunoassays (EIA-2 and EIA-3) for hepatitis C virus antibody (anti-HCV) are the most practical screening tests for the diagnosis of HCV infection. The need for and the choice of supplementary or confirmatory tests depend on the clinical setting and the likelihood of a true-positive EIA result. Detection of HCV RNA in serum by polymerase chain reaction (PCR) assay is the gold standard for the diagnosis of HCV infection. Performed By: #### 3 1265 #### [facility] [address] HCV PCR INTERP DETECTED Abnormal Not Detected [facility] Comment on above: Order Comment: This test was performed using the Cordova Real Time HCV PCR assay which has a dynamic range of 12-100,000,000 IU/Ml (1.08-8.0 log IU/mL). It is not designed for screening blood, plasma, serum or tissue donors for HCV. Currently, the second- and third-generation enzyme immunoassays (EIA-2 and EIA-3) for hepatitis C virus antibody (anti-HCV) are the most practical screening tests for the diagnosis of HCV infection. The need for and the choice of supplementary or confirmatory tests depend on the clinical setting and the likelihood of a true-positive EIA result. Detection of HCV RNA in serum by polymerase chain reaction (PCR) assay is the gold standard for the diagnosis of HCV infection. Performed By: #### 3 1265 #### [facility] [address] HEP C RNA QNT [id number] IU/mL Normal The [facility] Comment on above: Order Comment: This test was performed using the Cordova Real Time HCV PCR assay which has a dynamic range of 12-100,000,000 IU/Ml (1.08-8.0 log IU/mL). It is not designed for screening blood, plasma, serum or tissue donors for HCV. Currently, the second- and third-generation enzyme immunoassays (EIA-2 and EIA-3) for hepatitis C virus antibody (anti-HCV) are the most practical screening tests for the diagnosis of HCV infection. The need for and the choice of supplementary or confirmatory tests depend on the clinical setting and the likelihood of a true-positive EIA result. Detection of HCV RNA in serum by polymerase chain reaction (PCR) assay is the gold standard for the diagnosis of HCV infection. Performed By: #### 3 5715 #### [facility] [address] HEPATITIS B SURFACE ANTIBODY QUANTon 06-13-2018 HEP B SURF AB 0.48 mIU/ml Normal The [facility] Comment on above: Result Comment: INTE RPRETATION: NONREACTIVE<8.00 mIU/mL INDETERMINATE8.00 - 12.00 mIU/mL REACTIVE>12 mIU/mL Performed By: #### 3 1400, [id number] #### [facility] [address] HEPATITIS B SURFACE ANTIGEN QUALon 06-13-2018 HEP B SURF AG QUAL NONREACTIVE Normal NONREACTIVE [facility] Comment on above: Performed By: #### 3 1400, [id number] #### [facility] [address] [place] [address], [facility] HIV COMBO 4Gon 06-13-2018 HIV COMBO Negative Normal NEGATIVE [facility] Comment on above: Performed By: #### 3 0625 #### [facility] [address] [facility] [address] LIVER FIBROSIS CHRONIC VIRAL [id number] 06-13-2018 [id number] IN,FIBROMETER 282 mg/dL Normal 131-293 [facility] ALT [Catalytic activity/Vol] 337 U/L High 5-50 [facility] Amylase [Catalytic activity/Vol] 36 U/L Normal 7-51 [facility] AST [Catalytic activity/Vol] 132 U/L High 9-50 [facility] CIRRHOMETER PATIENT SCORE 0.05 Normal [facility] EER FIBROMETER REPORT See Note Normal [facility] Comment on above: Result Comment: Acce ss [facility] Enhanced Report using either link below: -Direct access: [email or web address] -Enter Username, Password: [email or web address] Username: [email or web address] Password: [email or web address] FIBROMETER INTERPRETATION See Report Normal [facility] Comment on above: Result Comment: [36] [13] [17] [34] INTERPRETIVE INFORMATION: Fibrometer Interpretation Calculations for the final report are based on accurate data for age, gender, and platelet count. If any of this information needs to be corrected, please contact [email or web address] to request a recalculation. Client Services may be contacted at . The [employer] FibroMeter profile serves as a surrogate marker of liver fibrosis, cirrhosis, and necro-inflammatory activity. A proprietary algorithm calculates and compares results from 7 blood markers along with age and gender to provide a patient score (from 0 to 1) and a correlated fibrosis stage (Metavir F0-F4) and activity grade (Metavir A0-A3). The fibrosis/cirrhosis score is further evaluated by a rules-based system to detect anomalous profile results which may modify the fibrosis/cirrhosis score as needed. Results should be interpreted in conjunction with the patient's clinical history; particularly when the rules-based system has modified the scores. Legend: -Metavir is a histological scoring system for determining the extent of liver fibrosis and inflammation. STAGE OF FIBROSIS (F scale) F0 = no fibrosis F1 = portal fibrosis without septa F2 = portal fibrosis with few septa F3 = numerous septa without cirrhosis F4 = cirrhosis GRADE OF NECRO-INFLAMMATORY ACTIVITY (A scale) A0 = no activity A1 = mild activity A2 = moderate activity A3 = severe activity -Platelet count result provided by client. -The Prothrombin Index test expresses the Prothrombin Time (PT) as a percentage of normal, and is used to standardize PT results across different instrument/reagent combinations. Test developed and characteristics determined by [facility]. See Compliance Statement B: Going/CS Performed by [facility], [address] [place] [id number] [email or web address], Gio Powell MD - Lab. Director FIBROMETER PLATELET CT 204 k/uL Normal [facility] FIBROMETER PLATELET IND 79 % Low 90-120 [facility] FIBROMETER PLATELET SCORE 0.77 Normal [facility] FIBROSIS METAVIR CLASSIFICATION F2/F3 Normal [facility] Comment on above: Result Comment: INTE RPRETIVE INFORMATION: Fibrosis Metavir Classification FibroMeter (fibrosis score) comments F0/F1 Equal probability between F0 and F1 F1[F1-F2] Predominance of F1, but F2 is possible F2[F1-F2] Predominance of F2, but F1 is possible F2[F1-F3] Predominance of F2, but F1 and F3 are possible F2/F3 Equal probability between F2 and F3 F3[F2-F4] Predominance of F3, but F2 and F4 are possible F3[F3-F4] Predominance of F3, but F4 is possible F4[F3-F4] Predominance of F4, but F3 is possible INFLAMETER METAVIR CLASSIFICATION A2/A3 Normal [facility] Comment on above: Result Comment: INTE RPRETIVE INFORMATION: InflaMeter Metavir Classification InflaMeter (activity score) comments A0/A1 Equal probability between A0 and A1 A1/A2 Equal probability between A1 and A2 A2/A3 Equal probability between A2 and A3 INFLAMETER PATIENT SCORE 0.97 Normal [facility] PROTHROMBIN TIMEon 8 INR Coag (PPP) [Relative time] 1.16 {INR} Normal 0.91-1.16 [facility] Comment on above: Result Comment: ACCC P RECOMMENDED INR FOR WARFARIN THERAPY ------ ------- CONDITION INR PROPHYLAXIS OF VENOUS THROMBOSIS 2-3 (HIGH-RISK SURGERY) TREATMENT OF VENOUS THROMBOSIS 2-3 TREATMENT OF PULMONARY EMBOLISM 2-3 PREVENTION OF SYSTEMIC EMBOLISM: 2-3 ACUTE MYOCARDIAL INFARCTION TISSUE HEART VALVES VALVULAR HEART DISEASE ATRIAL FIBRILLATION RECURRENT SYSTEMIC EMBOLISM MECHANICAL HEART VALVE 2.5-3.5 FROM: ORAL ANTICOAGULANTS. MECHANISM OF ACTION, CLINICAL EFFECTIVENESS, AND OPTIMAL THERAPEUTIC RANGE. CHEST 1995;108:231S-246S. Performed By: #### 5 6101 #### [facility] [address] [place] [address], [place] PT Coag (PPP) [Time] 14.8 s Normal 12.3-14.8 [facility] Comment on above: Result Comment: ALL RESULTS MUST BE INTERPRETED WITH RESPECT TO BLOOD DRAWING ARTIFACT OR DILUTION ERROR OF ANTICOAGULANT AT THE TIME OF SAMPLING. Performed By: #### 5 6101 #### [facility] [address] [place] [address], [place] TOX PANEL URINEon 06-13-2018 50 THC Negative Normal NEGATIVE [facility] Comment on above: Performed By: #### 3 1079 #### [facility] [address] [facility] [address], [facility] BARBITURATES Negative Normal NEGATIVE [facility] Comment on above: Performed By: #### 3 1079 #### [facility] [address] [place] [address], [facility] Benzodiazepines Ql (U) Negative Normal NEGATIVE [facility] Comment on above: Performed By: #### 3 1079 #### [facility] [address] [place] [address], [facility] Cocaine Ql (U) Negative Normal NEGATIVE [facility] Comment on above: Performed By: #### 3 1079 #### [facility] [address] [facility] [address], [facility] Methadone Ql (U) Negative Normal NEGATIVE [facility] Comment on above: Performed By: #### 3 1079 #### [facility] [address] [place] [address], [facility] MONO AMPHET Negative Normal NEGATIVE [facility] Comment on above: Performed By: #### 3 1079 #### [facility] [address] [facility] [place] [id number], [facility] Opiates Ql (U) Negative Normal NEGATIVE [facility] Comment on above: Performed By: #### 3 1079 #### [facility] [address] [facility] [place] [address], [facility] Phencyclidine Ql (U) Negative Normal NEGATIVE [facility] Comment on above: Performed By: #### 3 1079 #### [facility] [address] [place] [address], [facility] PROPOXYPHENE Negative Normal NEGATIVE [facility] Comment on above: Performed By: #### 3 1079 #### [facility] [address] [place] [address], [facility] TRICYCLICS Negative Normal NEGATIVE [facility] Comment on above: Performed By: #### 3 1079 #### [facility] [address] [place] [address], [facility] Encounters Encounter Date Encounter Type Care Provider Facility Start: 11-24-2022 End: 11-24-2022 ambulatory PHYSICIAN NO FAMILY Facility:[facility] Start: 06-15-2022 End: 06-15-[address] NONE LISTED REQUEST Facility: Payers Date Payer Category Payer Self-pay 2022 Unknown [id number] 1995 Unknown [id number] 1960 Self-pay [id number] Unknown [id number] Summary Purpose Family History No Family History Records FoundNo Family History Records FoundNo Family History Records FoundNo Family History Records Found Advance Directives No Advanced Directives Records FoundNo Advanced Directives Records FoundNo Advanced Directives Records FoundNo Advanced Directives Records Found Additional Source Comments (unrecognized sect ion and content) No Status Records FoundNo Status Records FoundNo Status Records FoundNo Status Records Found INFORMATION SOURCE (unrecogn ized section and content) DATE CREATED AUTHOR 05/31/2019 [facility] DATE CREATED AUTHOR AUTHOR'S ORGANIZ ATION 12/09/2021 [facility] DATE CREATED AUTHOR AUTHOR'S ORGANIZ ATION 06/18/2022 [facility] DATE CREATED AUTHOR AUTHOR'S ORGANIZ ATION 12/17/2022 [facility] FOR RECORDS PERTAINING TO PATIENTS WHO ARE OR HAVE BEEN ENROLLED IN A CHEMICAL DEPENDENCY/SUBSTANCEABUSE PROGRAM, SOME INFORMATION MAY BE OMITTED. This clinical summary was aggregated from multiple sources. Caution should be exercised in using it in the provision of clinical care. This summary normalizes information from multiple sources, and as a consequence, information in this document may materially change the coding, format and clinical context of patient data. In addition, data may be omitted in some cases. CLINICAL DECISIONS SHOULD BE BASED ON THE PRIMARY CLINICAL RECORDS. [facility]. provides no warranty or guarantee of the accuracy or completeness of information in this document.
[2023-10-09 21:24] LABS: Internal Control Within Normal Limits; Strep A Antigen Screen Negative
[2023-10-09 21:29] LABS: Influenza Virus A Antigen Positive; Influenza Virus B Antigen Negative; Internal Control Within Normal Limits; SARS-CoV-2 Ag NEGATIVE (NEGATIVE)
[2023-10-09] MEDS: 0.9 % SODIUM CHLORIDE 1,000 ML 1000 ML IV (21:40)
[2023-10-09] MEDS: DEXAMETHASONE SOD PHOS 10 MG/ML VIAL IV (21:40)
[2023-10-09] MEDS: KETOROLAC TROMETHAMINE 30 MG/ML VIAL IVP (21:41)
[2023-10-09] MEDS: ONDANSETRON PF 4 MG/2 ML VIAL IV (21:41)
== END 2023-10-09 22:51 | disposition home or self-care (01) ==
PROVIDERS: Physician Assistant; Emergency Provider Internal Medicine; PCP Family Medicine
DX: J10.1 Influenza due to other identified influenza virus with other respiratory manifestations (principal); Z20.822 Contact with and (suspected) exposure to COVID-19; F17.210 Nicotine dependence, cigarettes, uncomplicated; Z79.899 Other long term (current) drug therapy
CPT/HCPCS: 80048; 87070; 87804; 87811; 87880; 96361; 96374; 96375; 99285; J1100

== ENCOUNTER 2023-10-13 10:45 | Emergency (ER) | payer BC, SELFPAY ==
[2023-10-13] VITALS (16 sets, daily range): BP systolic 89–130; BP diastolic 55–80; PULSE 51; TEMP 36.7; O2SAT 96–99; BMI 27.3
--- NOTE | 2023-10-13 11:05 | ED.GENADUL1 ---
HPI HPI - General Adult General Chief complaint: Nausea/Vomiting/Diarrhea Stated complaint: NAUSEA/VOMITING Time Seen by Provider: 10/13/23 10:53 Source: patient Mode of arrival: walk-in Limitations: no limitations History of Present Illness HPI narrative: Patient is a 27-year-old male who is presenting to the ER today with intractable nausea, vomiting, midepigastric discomfort patient was seen and evaluated in the ER. At [place] on Monday, was diagnosed with influenza. Patient received 1 L of IV fluid and medication at that time to help with his symptoms. Patient was sent home with a prescription for Zofran ODT. Patient has not eaten this whole week, patient has has not been drinking much fluids and is only urinated approximately once a day this week. Patient went to [facility] yesterday morning, patient received 1 L of IV fluid, medication to help with symptoms, and patient did feel better when he left the ER yesterday around lunchtime. Patient had return of intractable nausea and vomiting last evening. Patient had Zofran ODT and also he had a couple of his significant others Phenergan suppositories that he used last night and today but it did not help and patient had vomiting this morning after using a Zofran and Phenergan suppositories she came back to the ER. Patient has no recent traveling out of state or country. 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 Patient smokes marijuana daily. Patient is not using any type of narcotics or benzos that he is going through withdrawal. Patient says he drinks alcohol socially. Patient has no other medication changes recently. Patient has no fever or chills. Patient has mild diffuse headache, left-sided neck pain. Patient has history of migraines, today's dull headache feels different than his typical migraines. Patient has no meningeal signs or symptoms, patient has mild headache, mild left-sided neck pain. Patient has no other acute complaints at this time. All systems are negative except as noted/marked. All systems reviewed and otherwise negative. Nurses note and vital signs reviewed and patient is not hypoxic. Patient has no hypotension or tachycardia. General: The patient appears mild distress secondary to not feeling well. Patient is resting comfortably on cart. Patient is not toxic, lethargic, or listless Skin: Warm, dry, no pallor noted. There is no rash noted. No petechiae, purpura. Head: Normocephalic, atraumatic; patient has mild left-sided paracervical tenderness to palpation, no meningeal signs or symptoms. Full range of motion of cervical spine with minimal pain and difficulty, no grimace to his face with cervical range of motion Eye: Normal conjunctiva, no drainage, EOMI. PERRL Ears, Nose, Mouth, and Throat: oral mucosa is moist. Nares patent. Mouth without vesicles. Cardiovascular: Regular Rate and Rhythm, no murmur, gallop, rub Respiratory: Patient is in no distress, no accessory muscle use, lungs are clear to auscultation, no wheezing, rales or rhonchi Back: non-tender, no CVA tenderness bilaterally to percussion. No CT LS midline pain GI: Patient has mild midepigastric tenderness palpation, no right upper or left upper tenderness to palpation, no peritoneal signs, no flank pain bilateral, no rash, no tenderness to palpation, no masses appreciated. No rebound, guarding, or rigidity noted. No distention Musculoskeletal: Patient has full range of motion of all of the extremities, no motor, sensory, or focal neurological deficits Neurological: A&O x4, normal speech Psychiatric: Cooperative Related Data Home Medications ?Medication ?Instructions ?Recorded ?Confirmed buspirone 15 mg tablet 15 mg PO DAILY 10/09/23 10/13/23 hydroxyzine HCl 25 mg tablet 25 mg PO DAILY 10/09/23 10/13/23 sertraline 50 mg tablet 50 mg PO DAILY 10/09/23 10/13/23 promethazine 25 mg tablet 25 mg PO Q6H PRN nausea and 10/13/23 10/13/23 vomiting Previous Rx's ?Medication ?Instructions ?Recorded [id number] 10 ml PO Q6H PRN cold symptoms 10/09/23 2 mg-30 mg-10 mg/5 mL oral syrup #200 mL (Bromfed DM) ondansetron 4 mg disintegrating 4 mg PO Q6H PRN nausea and 10/09/23 tablet vomiting #12 tabs ondansetron 4 mg disintegrating 4 mg PO Q4H PRN nausea and 10/13/23 tablet vomiting 3 days #6 tabs promethazine 25 mg tablet 25 mg PO BID PRN nausea and 10/13/23 vomiting #7 tabs Allergies Allergy/AdvReac Type Severity Reaction Status Date / Time Penicillins AdvReac Severe Hives Verified 06/06/23 11:17 Opioid HPI Opioid Management Most Recent Opioid Data: Last Pain Scale 7 06/06/23 13:59 Ur Phencyclidine Scrn Negative (NEGATIVE) 10/13/23 11:10 PFSH PFSH Social History Smoking status: Current every day smoker Exam Constitutional Vital Signs, click to edit/add: Last Vital Signs Temp 98.1 F 10/13/23 10:46 Pulse 51 L 10/13/23 10:46 Resp 20 10/13/23 10:46 BP 130/79 10/13/23 14:15 Pulse Ox 96 10/13/23 11:26 O2 Del Method Room Air 10/13/23 10:53 Course Vital Signs Vital signs: Vital Signs Temperature 98.1 F 10/13/23 10:46 Pulse Rate 51 L 10/13/23 10:46 Respiratory Rate 20 10/13/23 10:46 Blood Pressure 116/80 10/13/23 10:46 Pulse Oximetry 99 10/13/23 10:46 Oxygen Delivery Method Room Air 10/13/23 10:46 Temperature 98.1 F 10/13/23 10:46 Pulse Rate 51 L 10/13/23 10:46 Respiratory Rate 20 10/13/23 10:46 Blood Pressure 130/79 10/13/23 14:15 Pulse Oximetry 96 10/13/23 11:26 Oxygen Delivery Method Room Air 10/13/23 10:53 Medical Decision Making [facility] Narrative Medical decision making narrative: Patient was given IV Toradol to help with mild headache and left-sided neck pain. Patient is given Zofran and Compazine to help recurrent faster with intractable nausea and vomiting and will be given 2 L of IV fluid to help with hydration. Patient was concerned about his potassium levels. 1330 patient was given ice chips. Patient has greater than 80 ketones in the urine, patient has no acute changes to BUN and creatinine. Patient has marijuana with his urine drug screen, he did admit to daily marijuana use. Patient is feeling better after fluids, IV Zofran and Compazine. Patient will be given additional 1 L of lactic Ringer's, patient will then be discharged to continue Zofran, Phenergan suppositories at home and to continue to try and increase fluids through the weekend of [place]. Patient was able to hold any liquids and feel much better. Patient had mild nausea at discharge, patient was given alcohol swabs to smell along with 1 oral Zofran at discharge. Work note was givenFor tomorrow if needed. Lab Data Lab results reviewed: Yes I reviewed the patient's lab results Labs: Lab Results 10/13/23 10/13/23 Range/Units 11:10 11:15 WBC 4.9 (4.0-11.0) 10^3/uL RBC 5.18 (4.70-6.10) 10^6/uL Hgb 16.0 (14.0-18.0) g/dL Hct 45.6 (42.0-54.0) % MCV 88.0 (80.0-94.0) fL MCH 30.9 (25.9-34.0) pg MCHC 35.1 (29.9-35.2) g/dL RDW 12.7 (11.0-15.0) % Plt Count 214 (150-450) 10^3/uL MPV 10.4 (9.5-13.5) fL Seg Neuts % (Manual) 69.0 Band Neutrophils % 1.0 (0-5) % Lymphocytes % (Manual) 12.0 L (20.5-60.0) % Monocytes % (Manual) 18.0 H (1.7-12.0) % Eosinophils % (Manual) 0.0 L (0.9-7.0) % Basophils % (Manual) 0.0 L (0.2-2.0) % Neutrophils # (Manual) 3.38 (1.4-6.5) 10^3/uL Band Neutrophils # 0.0 (0.0-0.3) 10^3/uL Lymphocytes # (Manual) 0.58 L (1.20-3.80) 10^3/uL Monocytes # (Manual) 0.88 H (0.30-0.80) 10^3/uL Eosinophils # (Manual) 0.00 (0.00-0.70) 10^3/uL Basophils # (Manual) 0.00 (0.00-0.10) 10^3/uL Sodium 139 (136-145) mmol/L Potassium 3.6 (3.5-5.1) mmol/L Chloride 98 (98-107) mmol/L Carbon Dioxide 31.4 (21.0-32.0) mmol/L Anion Gap 13.2 BUN 10.0 (7.0-18.0) mg/dL Creatinine 0.78 (0.70-1.30) mg/dL Est GFR ( Amer) >60 (>=60) Est GFR (Non-Af Amer) >60 (>=60) BUN/Creatinine Ratio 12.8 Glucose 104 (74-106) mg/dL Lactate 1.5 (0.4-2.0) mmol/L Calcium 9.1 (8.5-10.1) mg/dL Total Bilirubin 0.6 (0.2-1.0) mg/dL AST 16 (15-37) U/L ALT 22 (16-63) U/L Alkaline Phosphatase 50 (46-116) U/L Total Protein 7.2 (6.4-8.2) g/dL Albumin 3.9 (3.4-5.0) g/dL Globulin 3.3 g/dL Albumin/Globulin Ratio 1.2 Lipase 21.0 (16.0-77.0) U/L Urine Color Yellow (YELLOW) Urine Clarity Sl cloudy (CLEAR) Urine pH 7.0 (5.0-9.0) Ur Specific [place] 1.020 (1.005-1.025) Urine Protein Negative (NEG/TRACE) mg/dL Urine Glucose (UA) Negative (NEGATIVE) mg/dL Urine Ketones >=80 A (NEGATIVE) mg/dL Urine Occult Blood Negative (NEGATIVE) Urine Nitrite Negative (NEGATIVE) Urine Bilirubin Negative (NEGATIVE) Urine Urobilinogen 1.0 (0.2-1.0) EU/dL Ur Leukocyte Esterase Negative (NEGATIVE) Urine RBC None seen (0-2) #/HPF Urine WBC None seen (NONE SEEN) #/HPF Ur Squamous Epith Cells Rare (NONE/RARE) #/LPF Urine Crystals None seen (None Seen) #/HPF Amorphous Sediment Few Urine Bacteria Trace A (NONE SEEN) #/HPF Urine Casts None seen (NONE SEEN) #/LPF Urine Mucus None seen (NONE SEEN) Urine Opiates Screen Negative (NEGATIVE) Ur Buprenorphine Scrn Negative (NEGATIVE) Ur Oxycodone Screen Negative (NEGATIVE) Urine Methadone Screen Negative (NEGATIVE) Ur Barbiturates Screen Negative (NEGATIVE) U Tricyclic Antidepress Negative (NEGATIVE) Ur Phencyclidine Scrn Negative (NEGATIVE) Ur Amphetamines Screen Negative (NEGATIVE) U Methamphetamines Scrn Negative (NEGATIVE) U Benzodiazepines Scrn Negative (NEGATIVE) Urine Cocaine Screen Negative (NEGATIVE) U Cannabinoids Screen Positive A (NEGATIVE) Patient labwork was reviewed, no other joint abnormalities. Discharge Plan Discharge Stand Alone Forms: Portal Instructions Chief Complaint: Nausea/Vomiting/Diarrhea Clinical Impression: Influenza A, Gastritis, Midepigastric pain, Nausea and vomiting, Dehydration Patient Disposition: Home, Self-Care Time of Disposition Decision: 14:16 Condition: Fair Mode of Transportation: Private Vehicle Prescriptions / Home Meds: New promethazine 25 mg tablet 25 mg PO BID PRN (Reason: nausea and vomiting) Qty: 7 0RF ondansetron 4 mg tablet,disintegrating 4 mg PO Q4H PRN (Reason: nausea and vomiting) 3 Days Qty: 6 0RF No Action promethazine 25 mg tablet 25 mg PO Q6H PRN (Reason: nausea and vomiting) hydroxyzine HCl 25 mg tablet 25 mg PO DAILY buspirone 15 mg tablet 15 mg PO DAILY sertraline 50 mg tablet 50 mg PO DAILY [id number] [Bromfed DM] 2-30-10 mg/5 mL syrup 10 ml PO Q6H PRN (Reason: cold symptoms) Qty: 200 0RF ondansetron 4 mg tablet,disintegrating 4 mg PO Q6H PRN (Reason: nausea and vomiting) Qty: 12 0RF Print Language: Persian Instructions: Gastritis (ED), Dehydration (ED), Influenza (ED), Acute Nausea and Vomiting (ED), Cannabis Use Disorder (ED), Abdominal Pain (ED), Cyclic Vomiting Syndrome (ED) Additional Instructions: Continue to increase Gatorade and Powerade over the weekend. Use Zofran ODT and Phenergan suppositories as needed to help with nausea over the weekend if it returns. Significantly increase Gatorade, Powerade or water over the weekend. Work note given for tomorrow if needed. Referrals: Trent Roach MD [Primary Care Provider] - 1 week Discharge Date/Time: 10/13/23 14:40
--- OUTSIDE RECORDS SUMMARY | 2023-10-13 11:22 | XMS_ITS | CCD ---
Author Organization [facility] Care Team Providers Care Adult Nurse Practitioner Name Role Phone REQUEST, DR NONE LISTED Primary Care Unavaila ARTHUR Alexis Consulting Unavailable ARTHUR JENNINGS Attending Unavailable ARTHUR JENNINGS Admitting Unavailable MD Trent Roach Primary Care Provider MD Sabra Gotti Emergency Provider [phone] Sabra Gotti Admitting Unavailable Sabra Gotti Attending Unavailable Trent Roach Primary Care Unavailable NO FAMILY, PHYSICIAN Primary Care Unavailable Bob Tate Admitting Unavailable Bob Tate Attending Unavailable Allergies Allergy Classification Reported Allergen(s) Allergy Type Date of Onset Reaction(s) Facility (2 sources) Amoxicillin Drug Allergy 07-10-2020 [facility] Repository (1 source) Penicillins Drug allergy (disorder) 11-19-2012 [facility] Repository (2 sources) penicillAMINE; Translations: [penicillamine] Drug Allergy 10-12-2023 [facility] (1 source) Amoxicillin Drug Allergy 10-12-2023 [facility] Repository Medications Current Medications Medication Drug Class(es) Dates Sig (Normalized) Sig (Original) busPIRone hydrochloride 15 mg oral tablet (1 source) Start: 10-12-2023 take 15 mg by mouth once daily Buspirone Active 15 MG PO Daily October 12, 2023 12:00am hydrOXYzine hydrochloride 25 mg oral tablet (1 source) Antihistamine Start: 10-12-2023 take 25 mg by mouth once daily Hydroxyzine Hcl Active 25 MG PO Daily October 12, 2023 12:00am ondansetron 4 mg disintegrating oral tablet (1 source) Serotonin-3 Receptor Antagonist Start: 10-12-2023 Ondansetron Active 4 MG PO every 6 to 8 hours 10 October 12, 2023 12:00am promethazine hydrochloride 25 mg oral tablet (1 source) Phenothiazine Start: 10-12-2023 take 25 mg by mouth every six hours Promethazine Active 25 MG PO Q6H 10 October 12, 2023 12:00am sertraline 50 mg oral tablet (1 source) Serotonin Reuptake Inhibitor Start: 10-12-2023 take 50 mg by mouth once daily Sertraline Active 50 MG PO Daily October 12, 2023 12:00am Problems Problem Classification Problem Date Documented Date Episodic/Chronic Fluid and electrolyte disorders (1 source) Dehydration; Translations: [DEHYDRATION] Onset: 06-17-2022 Episodic Influenza (1 source) Influenza; Translations: [Influenza due to unidentified influenza virus with other respiratory manifestations] 10-12-2023 Episodic Nausea and vomiting (4 sources) Nausea with vomiting, unspecified; Translations: [Nausea and vomiting] Onset: 06-15-2022 Episodic Noninfectious gastroenteritis (1 source) [...] Results Test Name Value Interpretation Reference Range Facility Basic Metabolic Panelon Anion gap [Moles/Vol] 15.4 mmol/L High 6.0-15.0 [facility] Comment on above: Performed By: #### C BC, BMP #### [facility] [address] [id number] [place] Calcium [Mass/Vol] 8.7 mg/dL Normal 8.6-10.3 [facility] Comment on above: Performed By: #### C BC, BMP #### [facility] [address] [place] [address] [place] Chloride [Moles/Vol] 100 mmol/L Normal 98-107 [facility] Comment on above: Performed By: #### C BC, BMP #### [facility] [address] [place] [address] [place] CO2 [Moles/Vol] 24.6 mmol/L Normal 21.0-31.0 [facility] Comment on above: Performed By: #### C BC, BMP #### [facility] [address] [place] [address] [place] Creatinine [Mass/Vol] 0.76 mg/dL Normal 0.70-1.30 [facility] Comment on above: Performed By: #### C BC, BMP #### [facility] [address] [place] [address] [place] Creatinine Clr Calc Pharmacy 121.17 [facility] Comment on above: Result Comment: PERF ORMED BY: [place] [address] DES[address] DRAFTSPERSON ANA GRACIA M.D. Performed By: #### C BC, BMP #### [place] [address] [place] GFR/1.73 sq M.predicted MDRD (S/P/Bld) [Vol rate/Area] mL/min/{1.73_m2} [facility] Comment on above: Performed By: #### C BC, BMP #### [address] Glucose [Mass/Vol] 102 mg/dL High 70-100 [facility] Comment on above: Result Comment: [place] Glucose Reference Range is dependent on time and content of last meal. Glucose of more than 200 mg/dL in a nonstressed, ambulatory subject supports the diagnosis of Diabetes Mellitus. ADA recommended reference range Performed By: #### C BC, BMP #### [facility] [address] Potassium [Moles/Vol] 4.0 mmol/L Normal 3.5-5.1 [facility] Comment on above: Performed By: #### C BC, BMP #### [address] [place] [address] [place] Sodium [Moles/Vol] 136 mmol/L Normal 136-145 [facility] Comment on above: Performed By: #### C MALISSA, CHAKA #### [facility] [address] Urea nitrogen [Mass/Vol] 10 mg/dL Normal 7-25 [facility] Comment on above: Performed By: #### C MALISSA, BMP #### [address] Basophils Auto (Bld) [#/Vol] Ordered By: Sabra Gotti on 10-12-2023 Basophils (Bld) [#/Vol] 0.0 10*3/uL 0.0-0.2 [facility] Basophils/100 WBC Auto (Bld) Ordered By: Sabra Gotti on 10-12-2023 Basophils/100 WBC (Bld) 0.6 % . F [facility] Calcium [Mass/volume] in Ser um or PlasmaOrdered By: Sabra Gotti on 10-12-2023 Calcium [Mass/Vol] 8.7 mg/dL 8.6-10.3 [facility] Carbon dioxide, total [Moles /volume] in Serum or PlasmaOrdered By: Sabra Gotti on 10-12-2023 CO2 [Moles/Vol] 24.6 mmol/L 21.0-31.0 [facility] Chloride [Moles/volume] in [place] or PlasmaOrdered By: Sabra Gotti on 10-12-2023 Chloride [Moles/Vol] 100 mmol/L 98-107 [facility] Complete Blood Count Auto Di ffon 10-12-2023 Basophils (Bld) [#/Vol] 0.0 10*3/uL Normal 0.0-0.2 [facility] Comment on above: Result Comment: PERF ORMED BY: [place] [address] DESIGN DRAFTSPERSON ANA GRACIA M.D. Performed By: #### C MALISSA, BMP #### [address] Basophils/100 WBC (Bld) 0.6 % Normal . F [facility] Comment on above: Performed By: #### C BC, BMP #### [facility] [address] [place] [address] [place] Eosinophils (Bld) [#/Vol] 0.0 10*3/uL Normal 0.0-0.45 [facility] Comment on above: Performed By: #### C BC, BMP #### [facility] [address] [place] [address] [place] Eosinophils/100 WBC (Bld) 0.2 % Normal . [facility] Comment on above: Performed By: #### C BC, BMP #### [facility] [address] Erythrocyte distribution width (RBC) [Ratio] 14.1 % Normal 12.0-14.8 [facility] Comment on above: Performed By: #### C BC, BMP #### [facility] [address] Hematocrit (Bld) [Volume fraction] 45.6 % Normal 38.8-50.0 [facility] Comment on above: Performed By: #### C BC, BMP #### [facility] [address] Hemoglobin (Bld) [Mass/Vol] 15.9 g/dL Normal 13.0-17.0 [facility] Comment on above: Performed By: #### C BC, BMP #### [facility] [address] [place] [address] [place] Lymphocytes (Bld) [#/Vol] 0.9 10*3/uL Low 1.00-4.8 [facility] Comment on above: Performed By: #### C BC, BMP #### [facility] [address] [place] [address] [place] Lymphocytes/100 WBC (Bld) 13.8 % Normal . [facility] Comment on above: Performed By: #### C BC, BMP #### [facility] [address] MCH (RBC) [Entitic mass] 30.7 pg Normal 27.5-35.2 [facility] Comment on above: Performed By: #### C BC, BMP #### [facility] [address] MCV (RBC) [Entitic vol] 88.3 fL Normal 83.5-101 F [facility] Comment on above: Performed By: #### C BC, BMP #### [facility] [address] Mean Corpuscular HGB Conc 34.8 g/dL Normal 32.5-35.6 [facility] Comment on above: Performed By: #### C BC, BMP #### [facility] [address] [place] [address] [place] Monocytes (Bld) [#/Vol] 1.4 10*3/uL High 0.0-0.8 [facility] Comment on above: Performed By: #### C BC, BMP #### [facility] [address] Monocytes/100 WBC (Bld) 22.65 % High 0.00-20.00 F [facility] Comment on above: Result Comment: For adults in ED, MDW > 20.0 may be associated with a higher risk of sepsis during the first 12 hrs of hospital admission Performed By: #### C BC, BMP #### [address] Monocytes/100 WBC (Bld) 21.9 % Normal . F [facility] Comment on above: Performed By: #### C BC, BMP #### [facility] [address] Neutrophils (Bld) [#/Vol] 4.1 10*3/uL Normal 1.8-7.7 [facility] Comment on above: Performed By: #### C BC, BMP #### [address] Neutrophils/100 WBC (Bld) 63.5 % Normal . [facility] Comment on above: Performed By: #### C BC, BMP #### [place] [address] [place] NRBC% 0.2 /100{WBC} Normal 0-0.5 [facility] Comment on above: Performed By: #### C MALISSA, BMP #### [facility] [address] Platelet mean volume (Bld) [Entitic vol] 8.7 fL Normal 6.6-10.1 [facility] Comment on above: Performed By: #### C MALISSA, BMP #### [facility] [address] Platelets (Bld) [#/Vol] 198 10*3/uL Normal 150-450 [facility] Comment on above: Performed By: #### C MALISSA, BMP #### [address] RBC (Bld) [#/Vol] 5.16 10*6/uL Normal 3.90-5.60 [facility] Comment on above: Performed By: #### C MALISSA, BMP #### [facility] [address] WBC (Bld) [#/Vol] 6.5 10*3/uL Normal 4.1-10.5 [facility] Comment on above: Performed By: #### Rebecca LEONARDO, BMP #### [address] Creatinine [Mass/volume] in Serum or PlasmaOrdered By: Sabra Gotti on 10-12-2023 Creatinine [Mass/Vol] 0.76 mg/dL 0.70-1.30 [facility] ECG 12 lead ECGon 10-12-2023 ECG 12 lead ECG [facility] [address] [place] [address] Electrocardiograph Report Signed Patient: Stephen Rosales MR#: [id number] 17 : 1995 Acct:[id number] Age/Sex: 27 / M ADM Date: 10/12/23 Loc: ER Room: Type: [facility] ER Attending Dr: Ordering Provider: Sabra Gotti MD Date of Service: 10/12/2310/31/640 ECG/ECG 12 lead ECG: Nausea/Vomiting/Di arrhea Copies to: Test Reason : Blood Pressure : 103/064 mmHG Vent. Rate : 052 BPM Atrial Rate : 052 BPM P-R Int : 098 ms QRS Dur : 124 ms QT Int : 430 ms P-R-T Axes : 019 078 074 degrees QTc Int : 399 ms Sinus bradycardia Ventricular pre-excitation, WPW pattern type B Abnormal ECG No previous ECGs available Confirmed by SABRA GOTTI MD ([id number]) on 10/12/2023 2:50:19 PM Referred By: Electronically Signed By:SABRA GOTTI MD Transcribed By: MUS Signed By Sabra Gotti MD 10/12/23 1450 Normal [facility] Eosinophils Auto (Bld) [#/Vo l]Ordered By: Sabra Gotti on 10-12-2023 Eosinophils (Bld) [#/Vol] 0.0 10*3/uL 0.0-0.45 [facility] Eosinophils/100 WBC Auto (Bl d)Ordered By: Sabra Gotti on 10-12-2023 Eosinophils/100 WBC (Bld) 0.2 % . [facility] Erythrocyte distribution wid th Auto (RBC) [Ratio]Ordered By: Sabra Gotti on 10-12-2023 Erythrocyte distribution width (RBC) [Ratio] 14.1 % 12.0-14.8 [facility] Glucose [Mass/volume] in Ser um or PlasmaOrdered By: Sabra Gotti on 10-12-2023 Glucose [Mass/Vol] 102 mg/dL 70-100 [facility] Comment on above: ADA recommended refe rence rangeRandom Glucose Reference Range is dependent on time and content of last meal. Glucose of more than 200 mg/dL in a nonstressed, ambulatory subject supports the diagnosis of Diabetes Mellitus. Hematocrit Auto (Bld) [Volum e fraction]Ordered By: Sabra Gotti on 10-12-2023 Hematocrit (Bld) [Volume fraction] 45.6 % 38.8-50.0 [facility] Hemoglobin [Mass/volume] in BloodOrdered By: Sabra Gotti on 10-12-2023 Hemoglobin (Bld) [Mass/Vol] 15.9 g/dL 13.0-17.0 [facility] Leukocytes [#/volume] correc kailash for nucleated erythrocytes in Blood by Automated counOrdered By: Sabra Gotti on 10-12-2023 WBC corrected for nucl RBC Auto (Bld) [#/Vol] 6.5 10*3/uL 4.1-10.5 [facility] Lymphocytes Auto (Bld) [#/Vo l]Ordered By: Sabra Gotti on 10-12-2023 Lymphocytes (Bld) [#/Vol] 0.9 10*3/uL 1.00-4.8 [facility] Lymphocytes/100 WBC Auto (Bl d)Ordered By: Sabra Gotti on 10-12-2023 Lymphocytes/100 WBC (Bld) 13.8 % . [facility] MCH Auto (RBC) [Entitic mass ]Ordered By: Sabra Gotti on 10-12-2023 MCH (RBC) [Entitic mass] 30.7 pg 27.5-35.2 [facility] MCHC Auto (RBC) [Mass/Vol]Or dered By: Sabra Gotti on 10-12-2023 MCHC (RBC) [Mass/Vol] 34.8 g/dL 32.5-35.6 [facility] MCV Auto (RBC) [Entitic vol] Ordered By: Sabra Gotti on 10-12-2023 MCV (RBC) [Entitic vol] 88.3 fL 83.5-101 F [facility] Monocyte distribution width [Entitic volume] in Blood by AutomatedOrdered By: Sabra Gotti on 10-12-2023 Monocyte distribution width Auto (Bld) [Entitic vol] 22.65 % 0.00-20.00 [facility] Comment on above: For adults in ED, MD W > 20.0 may be associated with a higher risk of sepsis during the first 12 hrs of hospital admission Monocytes Auto (Bld) [#/Vol] Ordered By: Sabra Gotti on 10-12-2023 Monocytes (Bld) [#/Vol] 1.4 10*3/uL 0.0-0.8 [facility] Monocytes/100 WBC Auto (Bld) Ordered By: Sabra Gotti on 10-12-2023 Monocytes/100 WBC (Bld) 21.9 % . F [facility] Neutrophils Auto (Bld) [#/Vo l]Ordered By: Sabra Gotti on 10-12-2023 Neutrophils (Bld) [#/Vol] 4.1 10*3/uL 1.8-7.7 [facility] Neutrophils/100 WBC Auto (Bl d)Ordered By: Sabra Gotti on 10-12-2023 Neutrophils/100 WBC (Bld) 63.5 % . [facility] No Panel InformationOrdered By: Sabra Gotti on 10-12-2023 Estimated GFR (CKD-EPI) > 60.0 mL/Min [facility] Creatinine Clearance (Chem 121.17 [facility] Nucleated erythrocytes [Pres ence] in Blood by Automated countOrdered By: Sabra Gotti on 10-12-2023 Nucleated RBC Auto Ql (Bld) 0.2 /100{WBC} 0-0.5 [facility] Platelet mean volume Auto (B ld) [Entitic vol]Ordered By: Sabra Gotti on 10-12-2023 Platelet mean volume (Bld) [Entitic vol] 8.7 fL 6.6-10.1 [facility] Platelets Auto (Bld) [#/Vol] Ordered By: Sabra Gotti on 10-12-2023 Platelets (Bld) [#/Vol] 198 10*3/uL 150-450 [facility] Potassium [Moles/volume] in Serum or PlasmaOrdered By: Sabra Gotti on 10-12-2023 Potassium [Moles/Vol] 4.0 mmol/L 3.5-5.1 [facility] RBC Auto (Bld) [#/Vol]Ordere d By: Sabra Gotti on 10-12-2023 RBC (Bld) [#/Vol] 5.16 10*6/uL 3.90-5.60 [facility] Serum or plasma anion gap de terminationOrdered By: Sabra Gotti on 10-12-2023 Anion gap [Moles/Vol] 15.4 mmol/L 6.0-15.0 [facility] Sodium [Moles/volume] in Ser um or PlasmaOrdered By: Sabra Gotti on 10-12-2023 Sodium [Moles/Vol] 136 mmol/L 136-145 [facility] Urea nitrogen [Mass/volume] in Serum or PlasmaOrdered By: Sabra Gotti on 10-12-2023 Urea nitrogen [Mass/Vol] 10 mg/dL 7-25 [facility] WBC Auto (Bld) [#/Vol]Ordere d By: Sabra Gotti on 10-12-2023 WBC (Bld) [#/Vol] 6.5 10*3/uL 4.1-10.5 [facility] Semen Analysis, Fertilityon 11-24-2022 Debris/Round Cells Moderate Normal [facility] Comment on above: Order Comment: Metho d of Collection:: Masturbation Has the patient had a vasectomy?: N Type of Specimen Container:: Sterile Container Abstinence Period:: 48 H Kept at body temperature?: Y Any Collection or Transport Problems?: NO Performed By: #### S EMCOMP #### [facility] [address] [place] [address] [place] Immotile Sperm 31 % Normal [facility] Comment on above: Order Comment: Metho d of Collection:: Masturbation Has the patient had a vasectomy?: N Type of Specimen Container:: Sterile Container Abstinence Period:: 48 H Kept at body temperature?: Y Any Collection or Transport Problems?: NO Performed By: #### S EMCOMP #### [facility] [address] [place] [address] [place] Non-Progression Sperm Motili 16 % Normal [facility] Comment on above: Order Comment: Metho d of Collection:: Masturbation Has the patient had a vasectomy?: N Type of Specimen Container:: Sterile Container Abstinence Period:: 48 H Kept at body temperature?: Y Any Collection or Transport Problems?: NO Performed By: #### S EMCOMP #### [facility] [address] [place] [address] [place] Normal Sperm Morphology 11.0 % Normal >=4.0 F [facility] Comment on above: Order Comment: Metho d of Collection:: Masturbation Has the patient had a vasectomy?: N Type of Specimen Container:: Sterile Container Abstinence Period:: 48 H Kept at body temperature?: Y Any Collection or Transport Problems?: NO Performed By: #### S EMCOMP #### [facility] [address] [place] [address] [place] Rapid Progression Sperm Motili 53 % Normal [facility] Comment on above: Order Comment: Metho d of Collection:: Masturbation Has the patient had a vasectomy?: N Type of Specimen Container:: Sterile Container Abstinence Period:: 48 H Kept at body temperature?: Y Any Collection or Transport Problems?: NO Performed By: #### S EMCOMP #### [facility] [address] Semen Appearance Normal Normal Normal [facility] Comment on above: Order Comment: Metho d of Collection:: Masturbation Has the patient had a vasectomy?: N Type of Specimen Container:: Sterile Container Abstinence Period:: 48 H Kept at body temperature?: Y Any Collection or Transport Problems?: NO Performed By: #### S EMCOMP #### [address] Semen Comment . Normal [facility] Comment on above: Order Comment: Metho d of Collection:: Masturbation Has the patient had a vasectomy?: N Type of Specimen Container:: Sterile Container Abstinence Period:: 48 H Kept at body temperature?: Y Any Collection or Transport Problems?: NO Result Comment: No A bnormal specimen characteristics noted. PERFORMED BY: [place] [address] DES[address] DRAFTSPERSON ANA GRACIA M.D. Performed By: #### S EMCOMP #### [address] Semen Liquefaction Normal Normal <=60 min [facility] Comment on above: Order Comment: Metho d of Collection:: Masturbation Has the patient had a vasectomy?: N Type of Specimen Container:: Sterile Container Abstinence Period:: 48 H Kept at body temperature?: Y Any Collection or Transport Problems?: NO Performed By: #### S EMCOMP #### [address] Semen pH 8.5 Normal >=7.2 [facility] Comment on above: Order Comment: Metho d of Collection:: Masturbation Has the patient had a vasectomy?: N Type of Specimen Container:: Sterile Container Abstinence Period:: 48 H Kept at body temperature?: Y Any Collection or Transport Problems?: NO Performed By: #### S EMCOMP #### [facility] [address] [place] [address] [place] Semen Viscosity Normal Normal Normal [facility] Comment on above: Order Comment: Metho d of Collection:: Masturbation Has the patient had a vasectomy?: N Type of Specimen Container:: Sterile Container Abstinence Period:: 48 H Kept at body temperature?: Y Any Collection or Transport Problems?: NO Performed By: #### S EMCOMP #### [facility] [address] Semen Volume 3.5 mL Normal >=1.5 [facility] Comment on above: Order Comment: Metho d of Collection:: Masturbation Has the patient had a vasectomy?: N Type of Specimen Container:: Sterile Container Abstinence Period:: 48 H Kept at body temperature?: Y Any Collection or Transport Problems?: NO Performed By: #### S EMCOMP #### [address] Sperm Concentration 15.5 Normal >=15 [facility] Comment on above: Order Comment: Metho d of Collection:: Masturbation Has the patient had a vasectomy?: N Type of Specimen Container:: Sterile Container Abstinence Period:: 48 H Kept at body temperature?: Y Any Collection or Transport Problems?: NO Performed By: #### S EMCOMP #### [facility] [address] [place] [address] [place] Total Motility (CT+PIT SLAGMAN) 69.0 % Normal >=40 (CT+PIT SLAGMAN) [facility] Comment on above: Order Comment: Metho d of Collection:: Masturbation Has the patient had a vasectomy?: N Type of Specimen Container:: Sterile Container Abstinence Period:: 48 H Kept at body temperature?: Y Any Collection or Transport Problems?: NO Result Comment: Resu lts questionable due to age of specimen. Performed By: #### S EMCOMP #### [facility] [address] [place] [address] [place] WBC Concent, Semen <1.0 Normal <1.0 [facility] Comment on above: Order Comment: Metho d of Collection:: Masturbation Has the patient had a vasectomy?: N Type of Specimen Container:: Sterile Container Abstinence Period:: 48 H Kept at body temperature?: Y Any Collection or Transport Problems?: NO Performed By: #### S EMCOMP #### [facility] [address] Covid-19 PCR (CVDTB)on SARS-CoV-2 (COVID-19) RNA ADDIS+probe Ql (Unsp spec) Detected Critically abnormal NOT DETECTED [facility] Comment on above: Result Comment: This test is not yet approved or cleared by the [place] FDA. When there are no FDA-approved or cleared tests available, and other criteria are met, FDA can make tests available under an emergency access mechanism called an Emergency Use Authorization (EUA). The EUA for this test is supported by the Program Management Professional of Health and Human Service's declaration that [...] longer be used). Performed By: #### C VDTBH #### [facility] [address] [place] [address] Dr. Krishan Miller INFLUENZA A AND B [facility] 06-15 [facility] SEE BELOW Normal [facility] Comment on above: Result Comment: Nega tive for Flu A protein angiten. Infection due to Flu A cannot be ruled out. Flu A angiten in the sample may be below the detection limit of the test. Performed By: #### I NFLUAB #### [facility] [address] [place] [address] Dr. Krishan Miller INFLUBNEG SEE BELOW Normal [facility] Comment on above: Result Comment: Nega tive for Flu B protein antigen. Infection due to Flu B cannot be ruled out. Flu B antigen in the sample may be below the detection limit of the test. Performed By: #### I NFLUAB #### [facility] [address] [address] [address] Krishan Miller INFLUENZA A AG Negative Normal NEGATIVE SEE COMMENT [facility] Comment on above: Performed By: #### I NFLUAB #### [facility] [address] [place] [address] Dr. Krishan Miller INFLUENZA B AG Negative Normal NEGATIVE SEE COMMENT [facility] Comment on above: Performed By: #### I NFLUAB #### [facility] [address] [place] [address] Dr. Krishan Miller INTERNAL CONTROLS Within Normal Limits Normal Within Normal Limits [facility] Comment on above: Performed By: #### I NFLUAB #### [facility] [facility] [address] [place] [address] Dr. Krishan Miller Registrationon 12-08-2021 Registration [id number]#[id number]:[address] [facility] Consenton 11-30-2021 Consent [id number]#[id number]:[address] [facility] ALCOHOLon 05-22-2019 Ethanol [Mass/Vol] NONE DETECTED Normal [facility] Comment on above: Result Comment: Divi de by 1000 to convert mg/dL to percent. Example: 100mg/dL = 0.1%. Performed By: #### 2 0621 #### [facility] [address] CBC COMPLETE BLOOD COUNTon 07-22-2018 Erythrocyte distribution width (RBC) [Ratio] 12.9 % Normal 11.5-15.0 [facility] Comment on above: Performed By: #### 2 0621 #### [facility] [address] Hematocrit (Bld) [Volume fraction] 47.7 % Normal 39.0-50.0 [facility] Comment on above: Performed By: #### 2 0621 #### [facility] [address] [place] [address], [place] Hemoglobin (Bld) [Mass/Vol] 16.1 g/dL Normal 13.0-17.0 [facility] Comment on above: Performed By: #### 2 0621 #### [facility] [address] [facility] [place] [address], [facility] MCH (RBC) [Entitic mass] 30.5 pg Normal 27.0-33.0 [facility] Comment on above: Performed By: #### 2 0621 #### [facility] [address] [facility] [place] [address], [facility] MCHC (RBC) [Mass/Vol] 33.8 g/dL Normal 32.0-35.0 [facility] Comment on above: Performed By: #### 2 0621 #### [facility] [address] [facility] [place] [address], [facility] MCV (RBC) [Entitic vol] 90.3 fL Normal 82.0-98.0 T lilibeth [facility] Comment on above: Performed By: #### 2 0621 #### [facility] [address] [place] [address], [facility] Nucleated RBC/100 WBC (Bld) [Ratio] 0 % Normal 0-0 [facility] Comment on above: Performed By: #### 2 0621 #### [facility] [address] [facility] [place] [address], [facility] PLAT CNT 239 10*3/uL Normal 150-400 [facility] Comment on above: Performed By: #### 2 0621 #### [facility] 3000 [facility] [place] [address], [facility] RBC (Bld) [#/Vol] 5.28 10*6/uL Normal 4.20-5.70 [facility] Comment on above: Performed By: #### 2 0621 #### [facility] [address] [facility] [place] [address], [place] WBC (Bld) [#/Vol] 7.47 10*3/uL Normal 4.00-10.60 [facility] Comment on above: Performed By: #### 2 0621 #### [facility] [address] [place] [address], [facility] COMP METABOLIC PANELon 05-22 Albumin [Mass/Vol] 5.0 g/dL Normal 3.5-5.7 [facility] Comment on above: Performed By: #### 2 0621 #### [facility] [address] [place] [address], [facility] ALKALINE PHOSPH 39 IU/L Normal 34-104 [facility] Comment on above: Performed By: #### 2 0621 #### [facility] [address] [place], [place] [id number] [place] [address] ALT [Catalytic activity/Vol] 73 U/L High 7-52 [facility] Comment on above: Performed By: #### 2 0621 #### [facility] [address] [place], [place] [id number] [place] [address] AST [Catalytic activity/Vol] 38 U/L Normal 13-39 [facility] Comment on above: Performed By: #### 2 0621 #### [facility] [address] [place] [address], [facility] Bilirubin [Mass/Vol] 0.5 mg/dL Normal 0.3-1.0 [facility] Comment on above: Performed By: #### 2 0621 #### [facility] [address] [place] [address], [facility] Calcium [Mass/Vol] 9.7 mg/dL Normal 8.6-10.3 [facility] Comment on above: Performed By: #### 2 0621 #### [facility] [address] [place] [address], [facility] Chloride [Moles/Vol] 101 mmol/L Normal 98-107 [facility] Comment on above: Performed By: #### 2 0621 #### [facility] [address] [place] [address], [place] CO2 [Moles/Vol] 30 mmol/L Normal 21-31 [facility] Comment on above: Performed By: #### 2 0621 #### [facility] [address] [place] [address], [place] Creatinine [Mass/Vol] 0.94 mg/dL Normal 0.70-1.30 [facility] Comment on above: Performed By: #### 2 0621 #### [facility] [address] [place] [address], [place] GFR/1.73 sq M predicted among blacks MDRD (S/P/Bld) [Vol rate/Area] mL/min/{1.73_m2} Normal >60 [facility] Comment on above: Performed By: #### 2 0621 #### [facility] [address] [place] [address], [place] GFR/1.73 sq M predicted among non-blacks MDRD (S/P/Bld) [Vol rate/Area] mL/min/{1.73_m2} Normal >60 [facility] Comment on above: Performed By: #### 2 0621 #### [facility] [address] [place] [address], [place] Glucose [Mass/Vol] 73 mg/dL Normal 70-100 [facility] Comment on above: Performed By: #### 2 0621 #### [facility] [address] [place] [address], [place] Potassium [Moles/Vol] 4.1 mmol/L Normal 3.5-5.1 [facility] Comment on above: Performed By: #### 2 0621 #### [facility] [address] [place] [address], [place] Protein [Mass/Vol] 7.6 g/dL Normal 6.0-8.3 [facility] Comment on above: Performed By: #### 2 0621 #### [facility] [address] Sodium [Moles/Vol] 139 mmol/L Normal 136-145 [facility] Comment on above: Performed By: #### 2 0621 #### [facility] [address] HEP C GENOTYPING [id number] HEP C GENOTYPING 3a Normal [facility] Comment on above: Result Comment: INTE RPRETIVE INFORMATION: Hepatitis C Genotyping Hepatitis C Viral RNA is tested using reverse purification operator helper polymerase chain reaction (RT-PCR) to amplify a specific portion of the 5' untranslated region (5' UTR) of the viral genome. The amplified nucleic acid is sequenced bi-directionally using dye-terminator chemistry ([employer]). Sequencing data is compared to a database [...] 1. Test developed and characteristics determined by [facility]. See Compliance Statement B: ebridge.Vidit/CS Performed by [facility], [address] [place] [id number] [email or web address], Gio Powell MD, Lab. Director HEP C RNA PCR QNTon 05-22-20 19 COPIES/ ML 6.31 IU/mL Normal [facility] Comment on above: Order Comment: This test [...] infection. Performed By: #### 0 0121 #### [facility] [address] HCV PCR INTERP DETECTED Abnormal Not Detected [facility] Comment on above: Order Comment: [...] infection. Performed By: #### 0 0121 #### [facility] [address] HEP C RNA QNT [id number] IU/mL Normal [facility] Comment on above: Order Comment: [...] infection. Performed By: #### 0 0121 #### [facility] [address] HEPATITIS A ABS TOTAL [id number] n 05-22-2019 HEP A ABS(TOTAL) Negative Normal Negative [facility] Comment on above: Result Comment: Perf ormed by [facility], [address] [place] [address],[place] [address] [email or web address], Gio Powell MD, Lab. Director HEPATITIS B CORE ANTIBODYon 05-22-2019 HEP B CORE AB NONREACTIVE Normal NONREACTIVE [facility] Comment on above: Performed By: #### 2 0621 #### [facility] [address] HEPATITIS B SURFACE ANTIBODY QUANTon 05-22-2019 HEP B SURF AB 0.28 mIU/ml Normal [facility] Comment on above: Result Comment: INTE RPRETATION: NONREACTIVE<8.00 mIU/mL INDETERMINATE8.00 - 12.00 mIU/mL REACTIVE>12 mIU/mL Performed By: #### 2 0621 #### [facility] [address] HEPATITIS B SURFACE ANTIGEN QUALon 05-22-2019 HEP B SURF AG QUAL NONREACTIVE Normal NONREACTIVE [facility] Comment on above: Performed By: #### 2 0621 #### [facility] [address] HIV COMBO 4Gon 05-22-2019 HIV COMBO Negative Normal NEGATIVE [facility] Comment on above: Performed By: #### 0 0121 #### [facility] [address] LIVER FIBROSIS CHRONIC VIRAL [id number] 05-22-2019 [id number],F IBROMETER 270 mg/dL Normal 131-293 [facility] ALT [Catalytic activity/Vol] 92 U/L High 5-50 [facility] Amylase [Catalytic activity/Vol] 18 U/L Normal 7-51 [facility] AST [Catalytic activity/Vol] 45 U/L Normal 9-50 [facility] CIRRHOMETER PATIENT SCORE 0.01 Normal [facility] EER FIBROMETER REPORT See Note Normal [facility] Comment on above: Result Comment: Tonio saunders [facility] Enhanced Report using either link below: -Direct access: [email or web address] -Enter Username, Password: [email or web address] Username: [email or web address] Password: [email or web address] FIBROMETER INTERPRETATION See Report Normal [facility] Comment on above: Result Comment: [17] [16] INTERPRETIVE INFORMATION: Fibrometer Interpretation Calculations for the final report are based on accurate data for age, gender, and platelet count. If any of this information needs to be corrected, please contact [employer] to request a recalculation. Client Services may be contacted at . The [employer] FibroMeter profile serves as a surrogate marker [...] combinations. Test developed and characteristics determined by [facility]. See Compliance Statement B: ebridge.Vidit/CS Performed by [facility], [address] [place] [address] [email or web address], Gio Powell MD, Lab. Director FIBROMETER PLATELET CT 239 k/uL Normal Th e [facility] FIBROMETER PLATELET IND 95 % Normal 90-120 T he [facility] FIBROMETER PLATELET SCORE 0.3 Normal [facility] FIBROSIS METAVIR CLASSIFICATION F1[F1-F2] Normal [facility] Comment on above: Result Comment: INTE RPRETIVE [...] possible INFLAMETER METAVIR CLASSIFICATION A1/A2 Normal [facility] Comment on above: Result Comment: INTE RPRETIVE INFORMATION: InflaMeter Metavir Classification InflaMeter (activity score) comments A0/A1 Equal probability between A0 and A1 A1/A2 Equal probability between A1 and A2 A2/A3 Equal probability between A2 and A3 INFLAMETER PATIENT SCORE 0.51 Normal [facility] Urea nitrogen [Mass/Vol] 10 mg/dL Normal 7-25 [facility] Comment on above: Performed By: #### 2 0621 #### [address] PROTHROMBIN TIMEon 9 INR Coag (PPP) [Relative time] 1.04 {INR} Normal 0.91-1.16 [facility] Comment on above: Result Comment: ACCC P RECOMMENDED INR FOR WARFARIN THERAPY ------- CONDITION INR PROPHYLAXIS OF VENOUS THROMBOSIS 2-3 (HIGH-RISK SURGERY) TREATMENT OF VENOUS THROMBOSIS 2-3 TREATMENT OF PULMONARY EMBOLISM 2-3 PREVENTION OF SYSTEMIC EMBOLISM: 2-3 ACUTE MYOCARDIAL INFARCTION TISSUE HEART VALVES VALVULAR HEART DISEASE ATRIAL FIBRILLATION RECURRENT SYSTEMIC EMBOLISM MECHANICAL HEART VALVE 2.5-3.5 FROM: ORAL ANTICOAGULANTS. MECHANISM OF ACTION, CLINICAL EFFECTIVENESS, AND OPTIMAL THERAPEUTIC RANGE. CHEST 1995;108:231S-246S. Performed By: #### 2 0621 #### [facility] [employer] [address] PT Coag (PPP) [Time] 13.6 s Normal 12.3-14.8 [facility] Comment on above: Result Comment: ALL RESULTS MUST BE INTERPRETED WITH RESPECT TO BLOOD DRAWING ARTIFACT OR DILUTION ERROR OF ANTICOAGULANT AT THE TIME OF SAMPLING. Performed By: #### 2 0621 #### [facility] [address] TOX PANEL URINEon 05-22-2019 50 THC Negative Normal NEGATIVE [facility] Comment on above: Performed By: #### 2 0621 #### [facility] [address] BARBITURATES Negative Normal NEGATIVE [facility] Comment on above: Performed By: #### 2 0621 #### [facility] [address] Benzodiazepines Ql (U) Negative Normal NEGATIVE Th e [facility] Comment on above: Performed By: #### 2 0621 #### [facility] [address] [facility] [place] [address], [facility] Cocaine Ql (U) Negative Normal NEGATIVE [facility] Comment on above: Performed By: #### 2 0621 #### [facility] [address] [facility] [place] [address], [facility] Methadone Ql (U) Negative Normal NEGATIVE [facility] Comment on above: Performed By: #### 2 0621 #### [facility] [address] [facility] [place] [address], [facility] MONO AMPHET Negative Normal NEGATIVE [facility] Comment on above: Performed By: #### 2 0621 #### [facility] [address] [facility] [place] [address], [facility] Opiates Ql (U) Negative Normal NEGATIVE [facility] Comment on above: Performed By: #### 2 0621 #### [facility] [address] [facility] [place] [address], [facility] Phencyclidine Ql (U) Negative Normal NEGATIVE [facility] Comment on above: Performed By: #### 2 0621 #### [facility] [address] [facility] [place] [address], [facility] PROPOXYPHENE Negative Normal NEGATIVE [facility] Comment on above: Performed By: #### 2 0621 #### [facility] [address] [facility] [place] [address], [facility] TRICYCLICS Negative Normal NEGATIVE [facility] Comment on above: Performed By: #### 2 0621 #### [facility] [address] [place] [address], [facility] US LIVER WITH ELASTOGRAPHYon 04-30-2019 US LIVER WITH ELASTOGRAPHY [facility] Department of Radiology [address] [place] [id number] == Patient Name: STEPHEN ROSALES : 1995 Sex: M Age: Race: White Pt. Location: [facility] Patient Status: D Ordered Date: 11/16/2018 10:55:00 AM Completed Date: 04/30/2019 08:32 AM Requesting Provider: RELL PRITCHETT Attending Provider: RELL PRITCHETT Report Copy To: Signs & Symptoms: B18.2 Chronic viral hepatitis C I10 History: [place] Comments: , , , Ordering Provider - RELL PRITCHETT MD , Exam: US LIVER WITH ELASTOGRAPHY == US LIVER WITH ELASTOGRAPHY 04/30/2019 8:32 AM [...] of clinical significance fibrosis. Electronically signed by:Rj Kim. Transcribed by: [email or web address], User Resident: Electronically Signed by: RJ KIM @ 04/30/2019 10:11 AM Normal [facility] Comment on above: Order Comment: , , = ========= , Ordering Provider - RELL PRITCHETT MD , ALCOHOLon 06-13-2018 Ethanol [Mass/Vol] NONE DETECTED Normal [facility] Comment on above: Result Comment: Divi de by 1000 to convert mg/dL to percent. Example: 100mg/dL = 0.1%. Performed By: #### 2 0621 #### [facility] 3000 [facility]. [address] CBC COMPLETE BLOOD COUNTon 1 08-14-2017 Erythrocyte distribution width (RBC) [Ratio] 12.7 % Normal 11.5-15.0 [facility] Comment on above: Performed By: #### 5 0608 #### [facility] [address] [facility] [place] [address], [facility] Hematocrit (Bld) [Volume fraction] 43.7 % Normal 39.0-50.0 [facility] Comment on above: Performed By: #### 5 0608 #### [facility] [address] [place] [address], [facility] Hemoglobin (Bld) [Mass/Vol] 15.7 g/dL Normal 13.0-17.0 [facility] Comment on above: Performed By: #### 5 0608 #### [facility] [address] [place] [address], [facility] MCH (RBC) [Entitic mass] 30.4 pg Normal 27.0-33.0 [facility] Comment on above: Performed By: #### 5 0608 #### [facility] [address] [place] [address], [facility] MCHC (RBC) [Mass/Vol] 35.9 g/dL High 32.0-35.0 [facility] Comment on above: Performed By: #### 5 0608 #### [facility] [address] [facility] [place] [address], [facility] MCV (RBC) [Entitic vol] 84.7 fL Normal 82.0-98.0 T he [facility] Comment on above: Performed By: #### 5 0608 #### [facility] 3000 [facility]. [address] Nucleated RBC/100 WBC (Bld) [Ratio] 0 % Normal 0-0 [facility] Comment on above: Performed By: #### 5 0608 #### [facility] [address] PLAT CNT 204 10*3/uL Normal 150-400 [facility] Comment on above: Performed By: #### 5 0608 #### [facility] [address] RBC (Bld) [#/Vol] 5.16 10*6/uL Normal 4.20-5.70 [facility] Comment on above: Performed By: #### 5 0608 #### [facility] [address] WBC (Bld) [#/Vol] 6.69 10*3/uL Normal 4.00-10.60 [facility] Comment on above: Performed By: #### 5 0608 #### [facility] [address] COMP METABOLIC PANELon 06-13 Albumin [Mass/Vol] 4.7 g/dL Normal 3.5-5.7 [facility] Comment on above: Performed By: #### 0 0121 #### [facility] [address] ALKALINE PHOSPH 37 IU/L Normal 34-104 [facility] Comment on above: Performed By: #### 0 0121 #### [facility] [address] [place] [address], [place] ALT [Catalytic activity/Vol] 254 U/L High 7-52 [facility] Comment on above: Performed By: #### 0 0121 #### [facility] [address] [place] [address], [place] AST [Catalytic activity/Vol] 111 U/L High 13-39 [facility] Comment on above: Performed By: #### 0 0121 #### [facility] [address] [place] [address], [place] Bilirubin [Mass/Vol] 0.7 mg/dL Normal 0.3-1.0 [facility] Comment on above: Performed By: #### 0 0121 #### [facility] [address] [place] [address], [place] Calcium [Mass/Vol] 9.3 mg/dL Normal 8.6-10.3 [facility] Comment on above: Performed By: #### 0 0121 #### [facility] [address] [place] [address], [place] Chloride [Moles/Vol] 103 mmol/L Normal 98-107 [facility] Comment on above: Performed By: #### 0 0121 #### [facility] [address] [place] [address], [place] CO2 [Moles/Vol] 29 mmol/L Normal 21-31 [facility] Comment on above: Performed By: #### 0 0121 #### [facility] [address] [place] [address], [place] Creatinine [Mass/Vol] 0.83 mg/dL Normal 0.70-1.30 [facility] Comment on above: Performed By: #### 0 0121 #### [facility] [address] [place] [address], [facility] GFR/1.73 sq M predicted among blacks MDRD (S/P/Bld) [Vol rate/Area] mL/min/{1.73_m2} Normal >60 [facility] Comment on above: Performed By: #### 0 0121 #### [facility] [address] [place] [address], [place] GFR/1.73 sq M predicted among non-blacks MDRD (S/P/Bld) [Vol rate/Area] mL/min/{1.73_m2} Normal >60 [facility] Comment on above: Performed By: #### 0 0121 #### [facility] [address] [place] [address], [place] Glucose [Mass/Vol] 99 mg/dL Normal 70-100 [facility] Comment on above: Performed By: #### 0 0121 #### [facility] [address] [place] [address], [place] Potassium [Moles/Vol] 4.3 mmol/L Normal 3.5-5.1 [facility] Comment on above: Performed By: #### 0 0121 #### [facility] [address] [place] [address], [place] Protein [Mass/Vol] 6.9 g/dL Normal 6.0-8.3 [facility] Comment on above: Performed By: #### 0 0121 #### [facility] [address] [place] [address], [place] Sodium [Moles/Vol] 138 mmol/L Normal 136-145 [facility] Comment on above: Performed By: #### 0 0121 #### [facility] [address] [place] [address], [place] Urea nitrogen [Mass/Vol] 12 mg/dL Normal 7-20 [facility] Comment on above: Performed By: #### 0 0121 #### [facility] [address] HEP C GENOTYPING [id number] HEP C GENOTYPING 3a Normal [facility] Comment on above: Result Comment: INTE RPRETIVE INFORMATION: Hepatitis C Genotyping Hepatitis C Viral RNA is tested using reverse purification operator helper polymerase chain reaction (RT-PCR) to amplify a specific portion of the 5' untranslated region (5' UTR) of the viral genome. The amplified nucleic acid is sequenced bi-directionally using dye-terminator chemistry ([employer]). Sequencing data is compared to a database [...] 1. Test developed and characteristics determined by [facility]. See Compliance Statement B: [employer]/CS Performed by [facility], [address] [place] [id number] [email or web address], Gio Powell MD - Lab. Director HEP C RNA PCR QNTon 06-13-20 18 COPIES/ ML 5.77 IU/mL Normal [facility] Comment on above: Order Comment: [...] infection. Performed By: #### 3 1265 #### [facility] [address] [facility]. [address] HCV PCR INTERP DETECTED Abnormal Not Detected [facility] Comment on above: Order Comment: [...] infection. Performed By: #### 3 1265 #### [facility] [address] [facility]. [address] HEP C RNA QNT [id number] IU/mL Normal [facility] Comment on above: Order Comment: [...] infection. Performed By: #### 3 1265 #### [facility] [address] HEPATITIS B SURFACE ANTIBODY QUANTon 06-13-2018 HEP B SURF AB 0.48 mIU/ml Normal [facility] Comment on above: Result Comment: INTE RPRETATION: NONREACTIVE<8.00 mIU/mL INDETERMINATE8.00 - 12.00 mIU/mL REACTIVE>12 mIU/mL Performed By: #### 3 1400, [id number] #### [facility] [address] [facility]. [address] HEPATITIS B SURFACE ANTIGEN QUALon 06-13-2018 HEP B SURF AG QUAL NONREACTIVE Normal NONREACTIVE [facility] Comment on above: Performed By: #### 3 1400, [id number] #### [facility] [address] [facility] [address] HIV COMBO 4Gon 06-13-2018 HIV COMBO Negative Normal NEGATIVE [facility] Comment on above: Performed By: #### 3 0625 #### [facility] [address] [facility]. [address] LIVER FIBROSIS CHRONIC VIRAL [id number] 06-13-2018 [id number]-1-[id number],F IBROMETER 282 mg/dL Normal 131-293 [facility] ALT [Catalytic activity/Vol] 337 U/L High 5-50 [facility] Amylase [Catalytic activity/Vol] 36 U/L Normal 7-51 [facility] AST [Catalytic activity/Vol] 132 U/L High 9-50 [facility] CIRRHOMETER PATIENT SCORE 0.05 Normal [facility] EER FIBROMETER REPORT See Note Normal [facility] Comment on above: Result Comment: [facility] Enhanced Report using either link below: -Direct access: [email or web address] -Enter Username, Password: [email or web address] Username: [email or web address] Password: [email or web address] FIBROMETER INTERPRETATION See Report Normal [facility] Comment on above: Result Comment: [36] [13] [17] [34] INTERPRETIVE INFORMATION: Fibrometer Interpretation Calculations for the final report are based on accurate data for age, gender, and platelet count. If any of this information needs to be corrected, please contact [facility] Client Services to request a recalculation. Client Services may be contacted at . The [employer] FibroMeter profile serves as a surrogate marker [...] combinations. Test developed and characteristics determined by [facility]. See Compliance Statement B: [employer]/CS Performed by [facility], [address] [place] [id number] [email or web address], Gio Powell MD - Lab. Director FIBROMETER PLATELET CT 204 k/uL Normal Th e [facility] FIBROMETER PLATELET IND 79 % Low 90-120 T he [facility] FIBROMETER PLATELET SCORE 0.77 Normal [facility] FIBROSIS METAVIR CLASSIFICATION F2/F3 Normal [facility] Comment on above: Result Comment: INTE RPRETIVE [...] is possible INFLAMETER METAVIR CLASSIFICATION A2/A3 Normal [facility] Comment on above: Result Comment: INTE RPRETIVE INFORMATION: InflaMeter Metavir Classification InflaMeter (activity score) comments A0/A1 Equal probability between A0 and A1 A1/A2 Equal probability between A1 and A2 A2/A3 Equal probability between A2 and A3 INFLAMETER PATIENT SCORE 0.97 Normal [facility] PROTHROMBIN TIMEon 8 INR Coag (PPP) [Relative time] 1.16 {INR} Normal 0.91-1.16 [facility] Comment on above: Result Comment: ACCC P RECOMMENDED INR FOR WARFARIN THERAPY ------- CONDITION INR PROPHYLAXIS OF VENOUS THROMBOSIS 2-3 (HIGH-RISK SURGERY) TREATMENT OF VENOUS THROMBOSIS 2-3 TREATMENT OF PULMONARY EMBOLISM 2-3 PREVENTION OF SYSTEMIC EMBOLISM: 2-3 ACUTE MYOCARDIAL INFARCTION TISSUE HEART VALVES VALVULAR HEART DISEASE ATRIAL FIBRILLATION RECURRENT SYSTEMIC EMBOLISM MECHANICAL HEART VALVE 2.5-3.5 FROM: ORAL ANTICOAGULANTS. MECHANISM OF ACTION, CLINICAL EFFECTIVENESS, AND OPTIMAL THERAPEUTIC RANGE. CHEST 1995;108:231S-246S. Performed By: #### 5 6103 #### [facility] [address] PT Coag (PPP) [Time] 14.8 s Normal 12.3-14.8 [facility] Comment on above: Result Comment: ALL RESULTS MUST BE INTERPRETED WITH RESPECT TO BLOOD DRAWING ARTIFACT OR DILUTION ERROR OF ANTICOAGULANT AT THE TIME OF SAMPLING. Performed By: #### 5 1841 #### [facility] [address] TOX PANEL URINEon 06-13-2018 50 THC Negative Normal NEGATIVE [facility] Comment on above: Performed By: #### 3 1079 #### [facility] [address] [facility] [address], [facility] BARBITURATES Negative Normal NEGATIVE [facility] Comment on above: Performed By: #### 3 1079 #### [facility] [address] [facility] [place] [address], [facility] Benzodiazepines Ql (U) Negative Normal NEGATIVE Th e [facility] Comment on above: Performed By: #### 3 1079 #### [facility] [address] [place] [address], [facility] Cocaine Ql (U) Negative Normal NEGATIVE [facility] Comment on above: Performed By: #### 3 1079 #### [facility] [address] [facility] [place] [address], [facility] Methadone Ql (U) Negative Normal NEGATIVE [facility] Comment on above: Performed By: #### 3 1079 #### [facility] [address] [place] [address], [facility] MONO AMPHET Negative Normal NEGATIVE [facility] Comment on above: Performed By: #### 3 1079 #### [facility] [address] [facility] [place] [address], [facility] Opiates Ql (U) Negative Normal NEGATIVE [facility] Comment on above: Performed By: #### 3 1079 #### [facility] [address] [place] [address], [facility] Phencyclidine Ql (U) Negative Normal NEGATIVE [facility] Comment on above: Performed By: #### 3 1079 #### [facility] [address] [facility] [address], [facility] PROPOXYPHENE Negative Normal NEGATIVE [facility] Comment on above: Performed By: #### 3 1079 #### [facility] [address] [place] [address], [facility] TRICYCLICS Negative Normal NEGATIVE [facility] Comment on above: Performed By: #### 3 1079 #### [facility] [address] [place] [address], [facility] Vital Signs Date Time Vital Sign Value Performing Clinician Scooter baird 10-12-2023 08:29-0400 Diastolic blood pressure 52 mm[Hg] MD Trent Roach Work Phone: [facility] 10-12-2023 08:29-0400 Heart rate 58 /min MD Trent Roach Work Phone: [facility] 10-12-2023 08:29-0400 Respiratory rate 18 /min MD Trent Roach Work Phone: [facility] 10-12-2023 08:29-0400 SaO2% (BldA) [Mass fraction] 98 % MD Trent Roach Work Phone: [facility] 10-12-2023 08:29-0400 Systolic blood pressure 98 mm[Hg] MD Trent Roach Work Phone: [facility] 10-12-2023 06:31-0400 Body height 162.56 cm MD Trent Roach Work Phone: [facility] 10-12-2023 06:31-0400 Body temperature 98.7 [degF] MD Trent Roach Work Phone: [facility] 10-12-2023 06:31-0400 Body weight 69 kg MD Trent Roach Work Phone: [facility] Encounters Encounter Date Encounter Type Care Provider Facility Start: 10-12-2023 End: 10-12-2023 Emergency department patient visit Sabra Gotti Facility:[facility] Start: 10-12-2023 End: 10-12-2023 Emergency department patient visit MD Trent Roach Work Phone: [facility] Work Phone: Start: 11-24-2022 End: 11-24-2022 ambulatory PHYSICIAN NO FAMILY Facility:[facility] Start: 06-15-2022 End: 06-15-[address] NONE LISTED REQUEST Facility: Plan of Treatment Date Care Activity Detail Author Patient Education Nausea and Vom iting, Adult ED Flu, Adult ED [facility] Work Phone: Patient referral [facility] Work Phone: Payers Date Payer Category Payer Self-pay 2022 Unknown [id number] 1995 Unknown [id number] 1960 Self-pay [id number] Unknown [id number] Unknown [id number] Social History Date Type Detail Facility [facility]: [facility] Start: 1995 Sex Assigned At Male F [facility] Evaluation note Note Date & Type Note Facility Evaluation note No assessment information availa ble [facility] Work Phone: Summary Purpose Family History No Family History Records Found Relationship Condition Age at Onset Recorded Date/T mohini father Hypertension Unknown Not Specified Hypertension Unknown Advance Directives No Advanced Directives Records Found Advance Directive Response Recorded Date/ Time Advance Directives No November 22 3 11:51am Chief Complaint and Reason for Visit Chief Complaint chest pain, vomiting Additional Source Comments (unrecognized sect ion and content) No Status Records FoundNo Status Records FoundNo Status Records FoundNo Status Records Found INFORMATION SOURCE (unrecogn ized section and content) DATE CREATED AUTHOR 05/31/2019 [facility] DATE CREATED AUTHOR AUTHOR'S ORGANIZ ATION 12/09/2021 Rodriguez Biswas [facility] DATE CREATED AUTHOR AUTHOR'S ORGANIZ ATION 06/18/2022 [facility] DATE CREATED AUTHOR AUTHOR'S ORGANIZ ATION 10/13/2023 [facility] Care Teams (unrecognized sec tion and content) Team Status: Active Member Role Status Dates Trent Roach MD Primary Care Provider Active Team Status: Inactive Member Role Status Dates Trent Roach MD Primary Care Provider Active S tart: October 12, 2023 End: October 12, 2023 Sabra Gotti MD Emergency Provider Active Star t: October 12, 2023 End: October 12, 2023 Goals (unrecognized section and content) Goals may be documented in a n alternate section FOR RECORDS PERTAINING TO PATIENTS WHO ARE [...] BE BASED ON THE PRIMARY CLINICAL RECORDS. [employer] provides no warranty or guarantee of the accuracy or completeness of information in this document.
[2023-10-13] MEDS: 0.9 % SODIUM CHLORIDE 1,000 ML 999 ML IV (11:26)
[2023-10-13] MEDS: KETOROLAC TROMETHAMINE 30 MG/ML VIAL 15 MG IVP (11:27)
[2023-10-13] MEDS: ONDANSETRON PF 4 MG/2 ML VIAL IV (11:27)
[2023-10-13] MEDS: PROCHLORPERAZINE 10 MG/2 ML VIAL IV (11:27)
[2023-10-13 11:36] LABS: Hematocrit 45.6 % (42.0-54.0); Mean Corpuscular HGB Conc 35.1 g/dL (29.9-35.2); Mean Corpuscular Hemoglobin 30.9 pg (25.9-34.0); Mean Platelet Volume 10.4 fL (9.5-13.5); Platelet Count 214 10^3/uL (150-450); Red Blood Count 5.18 10^6/uL (4.70-6.10); Red Cell Distribution Width 12.7 % (11.0-15.0); White Blood Count 4.9 10^3/uL (4.0-11.0)
[2023-10-13 11:39] LABS: Bilirubin Urine NEGATIVE (NEGATIVE); Blood Urine NEGATIVE (NEGATIVE); Clarity Urine SL CLOUDY (CLEAR); Color Urine YELLOW (YELLOW); Glucose Urine UA NEGATIVE (NEGATIVE); Ketones Urine >=80 mg/dL (NEGATIVE); Leukocyte Esterase Urine NEGATIVE (NEGATIVE); Nitrite Urine NEGATIVE (NEGATIVE); Protein Urine NEGATIVE (NEG/TRACE)
[2023-10-13 11:49] LABS: Amphetamine Screen Urine NEGATIVE (NEGATIVE); Barbiturates Screen Urine NEGATIVE (NEGATIVE); Benzodiazepines Screen Urine NEGATIVE (NEGATIVE); Buprenorphine Screen Urine NEGATIVE (NEGATIVE); Cannabinoid Screen Urine POSITIVE (NEGATIVE); Cocaine Screen Urine NEGATIVE (NEGATIVE); Methadone Screen Urine NEGATIVE (NEGATIVE); Methamphetamines Screen Urine NEGATIVE (NEGATIVE); Opiate Screen Urine NEGATIVE (NEGATIVE); Oxycodone Screen Urine NEGATIVE (NEGATIVE); Phencyclidine Screen Urine NEGATIVE (NEGATIVE); Tricyclic Antidepressant Urine NEGATIVE (NEGATIVE)
[2023-10-13 11:54] LABS: Lymphocytes Absolute Manual 0.58 10^3/uL (1.20-3.80); Monocytes Absolute Manual 0.88 10^3/uL (0.30-0.80); Segmented Neut Absolute Manual 3.38 10^3/uL (1.4-6.5)
--- NOTE | 2023-10-13 11:55 | XR_ITS ---
The [address] [address] Patient Name: CLAUDINE ROSALES MRN: [id number] date: 1995 Sex: M Assigned Patient Location: ER Current Patient Location: ER Accession/Order Number: [id number] Exam Date: 10/13/2023 12:00 Report Date: 10/13/2023 12:40 At the request of: MENDOZA KITCHEN Procedure: XR acute abdomen series EXAMINATION: XR acute abdomen series HISTORY: pain ; abdominal pain and vomiting COMPARISON: XR chest 05/28/2020 FINDINGS: LUNGS: No infiltrate, pneumothorax, or pleural effusion. MEDIASTINUM: No abnormal widening. BOWEL GAS PATTERN: Air-filled colon and scattered amounts of air within the small bowel; no obstruction, abnormal dilation, or suspicious fluid levels. FREE AIR: None. CALCIFICATIONS: None significant. BONES: No fracture or visible bone lesion. OTHER: Negative. XR/XR acute abdomen series IMPRESSION: 1. No acute cardiopulmonary process. 2. No bowel obstruction or ileus. Electronically authenticated by: MATT BARTH Date: 10/13/2023 12:40
[2023-10-13 11:56] LABS: WBC Urine NONE SEEN #/HPF (NONE SEEN)
[2023-10-13 11:57] LABS: Amorphous Sediment Urine FEW; Bacteria Urine TRACE #/HPF (NONE SEEN); Cast Seen? NONE SEEN #/LPF (NONE SEEN); Crystals Seen? None Seen #/HPF (None Seen); Mucus Urine NONE SEEN (NONE SEEN); RBC Urine NONE SEEN #/HPF (0-2); Squamous Epithelial Cell Urine RARE #/LPF (NONE/RARE)
[2023-10-13 11:58] LABS: Lactate/Lactic Acid 1.5 mmol/L (0.4-2.0)
[2023-10-13 12:07] LABS: Alanine Aminotransferase 22 U/L (16-63); Albumin Globulin Ratio 1.2; Albumin Level 3.9 g/dL (3.4-5.0); Alkaline Phosphatase 50 U/L (46-116); Anion Gap 13.2; Aspartate Amino Transferase 16 U/L (15-37); BUN Creatinine Ratio 12.8; Bilirubin Total 0.6 mg/dL (0.2-1.0); Calcium 9.1 mg/dL (8.5-10.1); Carbon Dioxide 31.4 mmol/L (21.0-32.0); Chloride 98 mmol/L (98-107); Estimated GFR (African America >60 (>=60); Estimated GFR (Non-African Ame >60 (>=60); Globulin 3.3 g/dL; Glucose 104 mg/dL (74-106); Potassium 3.6 mmol/L (3.5-5.1); Sodium 139 mmol/L (136-145); Total Protein 7.2 g/dL (6.4-8.2)
[2023-10-13] MEDS: LACTATED RINGER'S SOLUTION 1,000 ML 1000 ML IV (13:36)
[2023-10-13] MEDS: ONDANSETRON 4 MG RAPDIS TABLET SL (14:31)
== END 2023-10-13 14:40 | disposition home or self-care (01) ==
PROVIDERS: Emergency Provider Emergency Medicine; PCP Family Medicine
DX: J10.1 Influenza due to other identified influenza virus with other respiratory manifestations (principal); R11.2 Nausea with vomiting, unspecified; K29.70 Gastritis, unspecified, without bleeding; E86.0 Dehydration; F12.90 Cannabis use, unspecified, uncomplicated; Z79.899 Other long term (current) drug therapy; F17.210 Nicotine dependence, cigarettes, uncomplicated
CPT/HCPCS: 36415; 74022; 80053; 80307; 81001; 83605; 83690; 85007; 85027; 96361; 96374; 96375; 99285

== ENCOUNTER 2024-04-09 12:21 | Emergency (ER) | payer BC, SELFPAY ==
[2024-04-09 12:32] VITALS: BP 128/77; PULSE 57; TEMP 36.5; O2SAT 100; BMI 26.6
--- OUTSIDE RECORDS SUMMARY | 2024-04-09 12:32 | XMS_ITS | CCD ---
Author Organization [facility] Care Team Providers Care Physician Practice Administrator Name Role Phone REQUEST, DR NONE LISTED Primary Care Unavaila ARTHUR Alexis Consulting Unavailable ARTHUR JENNINGS Attending Unavailable ARTHUR JENNINGS Admitting Unavailable MD Trent Roach Primary Care Provider [phone] MD Sabra Gotti Emergency Provider Sabra Gotti Attending Unavailable Sabra Gotti Admitting Unavailable Trent Roach Primary Care Unavailable ZENG, DAYNA Attending Unavailable ZENG, DAYNA Primary Care Unavailable NO PCP, NO PCP Primary Care Unavailable ELDA CHAMPION Attending Unavailable MARITZA ROTH P Admitting Unavailable ELDA CHAMPION Attending Unavailable ELDA CHAMPION Referring Unavailable NO PCP, NO PCP Primary Care Unavailable ELDA CHAMPION Attending Unavailable JAYCEEELDA Referring Unavailable NO PCP, NO PCP Primary Care Unavailable ZENG, DAYNA K Referring Unavailable ZENG, DAYNA K Primary Care Unavailable ZENG, DAYNA K Referring Unavailable ZENG, DAYNA K Primary Care Unavailable ZENG, DAYNA K Referring Unavailable ZENG, DAYNA K Primary Care Unavailable ZENG, DAYNA K Referring Unavailable ZENG, DAYNA K Primary Care Unavailable Allergies Allergy Classification Reported Allergen(s) Allergy Type Date of Onset Reaction(s) Facility (4 sources) Amoxicillin; Translations: [AMOXICILLIN] Drug Allergy 05-28-2017 [facility] Repository (3 sources) Penicillins; Translations: [PENICILLINS] Drug allergy (disorder) 11-19-2012 [facility] Repository (2 sources) penicillAMINE; Translations: [penicillamine] Drug Allergy 10-12-2023 [facility] (1 source) Amoxicillin Drug Allergy 10-12-2023 [facility] Repository Medications Current Medications Medication Drug Class(es) [...] MG PO every 6 to 8 hours October 12, 2023 12:00am promethazine hydrochloride 25 mg oral tablet (1 source) Phenothiazine Start: 10-12-2023 take 25 mg by mouth every six hours Promethazine Active 25 MG PO Q6H October 12, 2023 12:00am sertraline 50 mg oral tablet (1 source) Serotonin Reuptake Inhibitor Start: 10-12-2023 take 50 mg by mouth once daily Sertraline Active 50 MG PO Daily October 12, 2023 12:00am Problems Active Problems Problem Classification Problem Date Documented Date Episodic/Chronic Cardiac dysrhythmias (2 sources) Palpitations; Translations: [Palpitations] Onset: 02-13-2024 Episodic Headache; including migraine (1 source) Migraine without aura, not intractable, without status migrainosus; Translations: [Migraine without aura, not intractable, without status migrainosus] Onset: 02-13-2024 Chronic Influenza (1 source) Influenza; Translations: [Influenza due to unidentified influenza virus with other respiratory manifestations] 10-12-2023 Episodic Malaise and fatigue (2 sources) Chronic fatigue, unspecified; Translations: [Chronic fatigue, unspecified] Onset: 02-13-2024 Chronic Noninfectious gastroenteritis (1 source) Noninfective gastroenteritis and colitis, unspecified; Translations: [NONINFECTIVE GE AND COLITIS UNS] Onset: 06-17-2022 Episodic Other lower respiratory disease (1 source) Snoring; Translations: [Snoring] Onset: 02-13-2024 Episodic Other male genital disorders (2 sources) Other specified disorders of the male genital organs; Translations: [Other specified disorders of the male genital organs] Onset: 02-13-2024 Episodic Other male genital disorders (1 source) Right testicular pain; Translations: [Right testicular pain] Onset: 02-29-2024 Episodic Other male genital disorders (1 source) Left testicular pain; Translations: [Left testicular pain] Onset: 02-29-2024 Episodic Other screening for suspected conditions (not mental disorders or infectious disease) (4 sources) Encounter for screening for lipoid disorders; Translations: [Encounter for screening for cardiovascular disorders] Onset: 02-13-2024 Episodic Substance-related disorders (2 sources) Nicotine dependence, cigarettes, uncomplicated; Translations: [Cannabis abuse with other cannabis-induced disorder] Onset: 06-17-2022 Chronic Unclassified (1 source) UNVACCINATED FOR COVID-19; Translations: [UNVACCINATED FOR COVID-19] Onset: 06-17-2022 Unclassified (1 source) Establish Care Onset: 02-13-2024 Unclassified (1 source) ILL Onset: 10-16-2023 Viral infection (1 source) COVID-19; Translations: [COVID-19] Onset: 06-17-2022 Past or Other Problems Problem Classification Problem Date Documented Da te Episodic/Chronic Fluid and electrolyte disorders (2 sources) Dehydration; Translations: [DEHYDRATION] Onset: 06-17-2022 Episodic Nausea and vomiting (6 sources) Nausea with vomiting, unspecified; Translations: [Nausea and vomiting] Onset: 06-15-2022 Episodic Residual codes; unclassified (1 source) Other specified personal risk factors, not elsewhere classified; Translations: [Other specified personal risk factors, not elsewhere classified] Onset: 10-16-2023 Episodic Viral infection (1 source) Viral infection, unspecified; Translations: [Viral infection, unspecified] Onset: 10-16-2023 Episodic Results Test Name Value Interpretation Reference Range Facility URINALYSISon 02-29-2024 Bilirubin Ql (U) Negative Normal NEG [facility] Comment on above: Performed By: #### C BCA, CMP, 3040-3, 20406-5, 96578-4, 93338-4 #### [facility] ([id number]) [address] [place] [address] BLOOD/HGB Negative Normal NEG [facility] Comment on above: Performed By: #### C BCA, CMP, 3040-3, 19431-6, 46040-2, 61321-7 #### [facility] ([id number]) [address] [place] [address] 72873 Color (U) YELLOW Normal YELLOW [facility] Comment on above: Performed By: #### C BCA, CMP, 3040-3, 63188-0, 68795-6, 87219-8 #### [facility] ([id number]) [address] [place] [address] 70091 Glucose Ql (U) Negative Normal NEG [facility] Comment on above: Performed By: #### C BCA, CMP, 3040-3, 77468-2, 01059-1, 49107-4 #### [facility] ([id number]) [address] [place] [address] 44178 Ketones Ql (U) Negative Normal NEG [facility] Comment on above: Performed By: #### C BCA, CMP, 3040-3, 07462-2, 04199-0, 53667-6 #### [facility] ([id number]) [address] [place] [address] 80475 Leukocyte esterase Test strip Ql (U) Negative Normal NEG [facility] Comment on above: Performed By: #### C BCA, CMP, 3040-3, 90560-0, 82705-6, 16065-7 #### [facility] ([id number]) [address] [place] [address] 23558 MUCOUS PRESENT Abnormal NONE [facility] Comment on above: Performed By: #### C BCA, CMP, 3040-3, 48713-6, 68278-2, 36742-0 #### [facility] ([id number]) [address] [place] [address] 68772 Nitrite Ql (U) Negative Normal NEG [facility] Comment on above: Performed By: #### C BCA, CMP, 3040-3, 09608-9, 37765-0, 50031-7 #### [facility] ([id number]) [address] [place] [address] 61800 pH (U) 6.5 [pH] Normal 5.0-8.5 [facility] Comment on above: Performed By: #### C BCA, CMP, 3040-3, 96007-4, 71928-1, 33061-4 #### [facility] ([id number]) [address] [place] [address] 05577 Protein Ql (U) 50 mg/dL Abnormal NEG [facility] Comment on above: Performed By: #### C BCA, CMP, 3040-3, 12236-8, 06615-0, 03117-0 #### [facility] ([id number]) [address] [place] [address] 79230 R.B.CELLS 0 /hpf Normal 0-5 [facility] Comment on above: Performed By: #### C BCA, CMP, 3040-3, 72445-5, 48729-6, 43748-8 #### [facility] ([id number]) [address] [place] [address] 32728 Specific gravity (U) [Rel density] 1.019 Normal 1.003-1.035 [facility] Comment on above: Performed By: #### C BCA, CMP, 3040-3, 85498-9, 27226-1, 53695-8 #### [facility] ([id number]) [address] [place] [address] 79472 TURBIDITY CLEAR Normal CLEAR [facility] Comment on above: Performed By: #### C BCA, CMP, 3040-3, 40392-3, 55035-2, 38073-8 #### [facility] ([id number]) [address] [place] [address] 71490 Urobilinogen (U) [Mass/Vol] mg/dL Normal <1.1 [facility] Comment on above: Performed By: #### C BCA, CMP, 3040-3, 86892-2, 24702-3, 06891-8 #### [facility] ([id number]) [address] [place] [address] 02053 W.B.CELLS 1 /hpf Normal 0-5 [facility] Comment on above: Performed By: #### C BCA, CMP, 3040-3, 61250-2, 10129-4, 45284-6 #### [facility] ([id number]) [address] [place] [address] 71335 URINE CULTUREon 02-29-2024 Bacteria identified Cx Nom (U) CULTURE RESULTS NO GROWTH AT <1000 CFU/mL Normal [facility] Comment on above: Performed By: #### C BCA, CMP, 3040-3, 20949-0, 48125-0, 55887-6 #### [facility] ([id number]) [address] [place] [address] 78228 US SCROTUMon 02-28-2024 US SCROTUM US SCROTUM US SCROTUM HISTORY: Lump in left testicle COMPARISON: None TECHNIQUE: Real-time grayscale ultrasound with color doppler of the scrotum and testicles. FINDINGS: Right testicle measures 4.5 x 1.9 x 2.7 cm and demonstrates normal echotexture. Apparent right testicular microcalcification, nonspecific and requiring no follow-up. Normal testicular color flow. Epididymis is unremarkable. Left testicle measures 4.7 x 1.9 x 2.7 cm and demonstrates normal echotexture. Left epididymal head cyst with single septation measuring 1.9 x 1.1 x 1.7 cm. Normal testicular color flow There is a physiologic amount of fluid within the scrotum bilaterally. IMPRESSION: * Palpable abnormality likely corresponds to a minimally complex left epididymal head cyst. This requires no interval follow-up. * No acute sonographic findings. Approved by Resident Miguel Soriano DO on 02/28/2024 1:41 PM I, Andrzej Beverly DO have personally reviewed the image(s) and agree with and/or edited the report Finalized by Andrzej Beverly DO on 02/28/2024 2:26 PM Normal [facility] CBC AND AUTO DIFFon 02-27-20 ABSOLUTE BASOPHIL 0.1 X10E9/L Normal 0.0-0.2 [facility] Comment on above: Performed By: #### C BCA, CMP, 3040-3, 87983-1, 05190-2, 28505-2 #### [facility] ([id number]) [address] [place] [address] 97096 ABSOLUTE NEUTROPHIL 3.6 X10E9/L Normal 1.5-6.6 [facility] Comment on above: Performed By: #### C BCA, CMP, 3040-3, 32933-3, 20097-5, 66586-0 #### [facility] ([id number]) [address] [place] [address] 05963 Basophils/100 WBC (Bld) 1.1 % Normal [facility] Comment on above: Performed By: #### C BCA, CMP, 3040-3, 27807-7, 76031-4, 14816-2 #### [facility] ([id number]) [address] [place] [address] 94553 Eosinophils (Bld) [#/Vol] 0.8 10*3/uL High 0.0-0.4 [facility] Comment on above: Performed By: #### C BCA, CMP, 3040-3, 13603-3, 10726-4, 66492-1 #### [facility] ([id number]) [address] [place] [address] 89018 Eosinophils/100 WBC (Bld) 10.5 % Normal [facility] Comment on above: Performed By: #### C BCA, CMP, 3040-3, 94540-6, 23828-1, 30932-0 #### [facility] ([id number]) [address] [place] [address] 58070 Erythrocyte distribution width (RBC) [Ratio] 14.0 % Normal 11.5-15.0 [facility] Comment on above: Performed By: #### C BCA, CMP, 3040-3, 58343-6, 30435-6, 54435-2 #### [facility] ([id number]) [address] [place] [address] 04982 Hematocrit (Bld) [Volume fraction] 43.9 % Normal 39-49 [facility] Comment on above: Performed By: #### C BCA, CMP, 3040-3, 76983-1, 99878-6, 53655-5 #### [facility] ([id number]) [address] [place] [address] 95786 Hemoglobin (Bld) [Mass/Vol] 15.0 g/dL Normal 13.0-17.0 [facility] Comment on above: Performed By: #### C BCA, CMP, 3040-3, 44338-8, 00726-9, 47602-3 #### [facility] ([id number]) [address] [place] [address] 94090 Lymphocytes (Bld) [#/Vol] 2.3 10*3/uL Normal 1.0-3.5 [facility] Comment on above: Performed By: #### C BCA, CMP, 3040-3, 71469-5, 10365-0, 30715-9 #### [facility] ([id number]) [address] [place] [address] 35534 Lymphocytes/100 WBC (Bld) 29.8 % Normal [facility] Comment on above: Performed By: #### C BCA, CMP, 3040-3, 69642-5, 68428-4, 62208-2 #### [facility] ([id number]) [address] [place] [address] 00809 MCH (RBC) [Entitic mass] 30.6 pg Normal 27-34 [facility] Comment on above: Performed By: #### C BCA, CMP, 3040-3, 05181-2, 89018-8, 01460-8 #### [facility] ([id number]) [address] [place] [address] 15319 MCHC (RBC) [Mass/Vol] 34.1 g/dL Normal 32-36 [facility] Comment on above: Performed By: #### C BCA, CMP, 3040-3, 25237-4, 94380-4, 43765-2 #### [facility] ([id number]) [address] [place] [address] 85915 MCV (RBC) [Entitic vol] 90 fL Normal 80-100 [facility] Comment on above: Performed By: #### C BCA, CMP, 3040-3, 79113-6, 53669-7, 21516-5 #### [facility] ([id number]) [address] [place] [address] 70568 Monocytes (Bld) [#/Vol] 0.9 10*3/uL Normal 0-0.9 [facility] Comment on above: Performed By: #### C BCA, CMP, 3040-3, 84620-6, 64688-9, 53486-7 #### [facility] ([id number]) [address] [place] [address] 72362 Monocytes/100 WBC (Bld) 11.5 % Normal [facility] Comment on above: Performed By: #### C BCA, CMP, 3040-3, 02528-3, 15679-4, 61050-5 #### [facility] ([id number]) [address] [place] [address] [place] [address] Neutrophils/100 WBC (Bld) 47.1 % Normal [facility] Comment on above: Performed By: #### C BCA, CMP, 3040-3, 71373-1, 50442-3, 98959-8 #### [facility] ([id number]) [address] [place] [address] 21415 Platelet mean volume (Bld) [Entitic vol] 9.6 fL Normal 7-12 [facility] Comment on above: Performed By: #### C BCA, CMP, 3040-3, 73552-1, 24032-9, 69714-3 #### [facility] ([id number]) [address] [place] [address] 09805 Platelets (Bld) [#/Vol] 223 10*3/uL Normal 150-450 [facility] Comment on above: Performed By: #### C BCA, CMP, 3040-3, 20507-3, 81270-0, 21850-8 #### [facility] ([id number]) [address] [place] [address] 88651 RBC COUNT 4.89 X10E12/L Normal 4.10-5.70 [facility] Comment on above: Performed By: #### C BCA, CMP, 3040-3, 71310-1, 05597-9, 80844-5 #### [facility] ([id number]) [address] [place] [address] 04710 WBC (Bld) [#/Vol] 7.7 10*3/uL Normal 4.0-11.0 [facility] Comment on above: Performed By: #### C BCA, CMP, 3040-3, 61923-0, 76658-3, 74798-1 #### [facility] ([id number]) [address] [place] [address] 33184 COMPREHENSIVE METABOLIC PANE [facility] 02-27-2024 Albumin [Mass/Vol] 4.3 g/dL Normal 3.2-5.3 [facility] Comment on above: Performed By: #### C BCA, CMP, 3040-3, 19031-2, 68105-6, 80643-6 #### [facility] ([id number]) [address] [place] [address] 49189 ALP [Catalytic activity/Vol] 47 U/L Normal 39-130 [facility] Comment on above: Performed By: #### C BCA, CMP, 3040-3, 05478-6, 80980-7, 24789-6 #### [facility] ([id number]) [address] [place] [address] 99245 ALT [Catalytic activity/Vol] 13 U/L Normal 0-40 [facility] Comment on above: Performed By: #### C BCA, CMP, 3040-3, 48074-2, 60591-2, 99004-2 #### [facility] ([id number]) [address] [place] [address] 54745 Anion gap [Moles/Vol] 11 mmol/L Normal 5-15 [facility] Comment on above: Performed By: #### C BCA, CMP, 3040-3, 91787-8, 49370-9, 13328-9 #### [facility] ([id number]) [address] [place] [address] 63543 AST [Catalytic activity/Vol] 16 U/L Normal 0-41 [facility] Comment on above: Performed By: #### C BCA, CMP, 3040-3, 06537-9, 58445-6, 46348-8 #### [facility] ([id number]) [address] [place] [address] 66533 Bilirubin [Mass/Vol] 0.4 mg/dL Normal 0.3-1.2 [facility] Comment on above: Performed By: #### C BCA, CMP, 3040-3, 45793-2, 88676-5, 55562-2 #### [facility] ([id number]) [address] [place] [address] 74325 Calcium [Mass/Vol] 9.1 mg/dL Normal 8.5-10.5 [facility] Comment on above: Performed By: #### C BCA, CMP, 3040-3, 41408-8, 54254-3, 29498-0 #### [facility] ([id number]) [address] [place] [address] 85330 Chloride [Moles/Vol] 104 mmol/L Normal 98-109 [facility] Comment on above: Performed By: #### C BCA, CMP, 3040-3, 40209-1, 58684-3, 55959-5 #### [facility] ([id number]) [address] [place] [address] 20398 CO2 [Moles/Vol] 23 mmol/L Normal 22-32 [facility] Comment on above: Performed By: #### C BCA, CMP, 3040-3, 21356-9, 88512-5, 80159-5 #### [facility] ([id number]) [address] [place] [address] 49062 Creatinine [Mass/Vol] 0.74 mg/dL Normal 0.60-1.30 [facility] Comment on above: Result Comment: METH OD TRACEABLE TO IDMS STANDARD Performed By: #### C BCA, CMP, 3040-3, 99974-2, 47576-3, 85675-1 #### [facility] ([id number]) [address] [place] [address] 70134 eGFR (CKD-EPI) NON-RACE DEPENDENT >90 Normal >59 [facility] Comment on above: Result Comment: Reported eGFR is based on the CKD-EPI 2020 equation that does not use a race coefficient. Performed By: #### C BCA, CMP, 3040-3, 66559-0, 16155-5, 84073-0 #### [facility] ([id number]) [address] [place] [address] 76903 Glucose [Mass/Vol] 90 mg/dL Normal 65-99 [facility] Comment on above: Performed By: #### C BCA, CMP, 3040-3, 37648-2, 96696-6, 58190-2 #### [facility] ([id number]) [address] [place] [address] 22065 Potassium [Moles/Vol] 4.0 mmol/L Normal 3.5-5.0 [facility] Comment on above: Performed By: #### C BCA, CMP, 3040-3, 62806-5, 06811-9, 31062-6 #### [facility] ([id number]) [address] [place] [address] 30380 Protein [Mass/Vol] 6.4 g/dL Normal 6.0-8.0 [facility] Comment on above: Performed By: #### C BCA, CMP, 3040-3, 16239-5, 03307-4, 15511-2 #### [facility] ([id number]) [address] [place] [address] 25809 Sodium [Moles/Vol] 138 mmol/L Normal 134-146 [facility] Comment on above: Performed By: #### C BCA, CMP, 3040-3, 33193-8, 72723-0, 47899-5 #### [facility] ([id number]) [address] [place] [address] 13754 Urea nitrogen [Mass/Vol] 10 mg/dL Normal 5-23 [facility] Comment on above: Performed By: #### C BCA, CMP, 3040-3, 79210-5, 57972-9, 38941-7 #### [facility] ([id number]) [address] [place] [address] 40338 Lipid 1996 panelon 4 Cholesterol [Mass/Vol] 130 mg/dL Low 150-200 [facility] Comment on above: Performed By: #### Rebecca MCNEAL, CMP, 3040-3, 29490-2, 69437-7, 33369-4 #### [facility] ([id number]) [address] [place] [address] 65137 Cholesterol in HDL [Mass/Vol] 35 mg/dL Low >39 [facility] Comment on above: Result Comment: HDL <40 mg/dL - High Risk HDL > or = 40mg/dL- Desirable HDL >60 mg/dL - Negative Risk Performed By: ###Carolina Fernandez BCA, CMP, 3040-3, 56483-7, , 51761-0 #### [facility] ([id number]) [address] [place] [address] 67676 Cholesterol in LDL [Mass/Vol] 64 mg/dL Normal <130 [facility] Comment on above: Result Comment: LDL <100 mg/dL - Desirable LDL >160 mg/dL - High Risk Performed By: #### Rebecca BCA, CMP, 3040-3, 98420-9, 00766-0, 52892-3 #### [facility] ([id number]) [address] [place] [address] 39772 Cholesterol in VLDL [Mass/Vol] 31 mg/dL High 0-30 [facility] Comment on above: Performed By: ###Carolina Fernandez BCA, CMP, 3040-3, 24376-2, 93591-1, 71595-9 #### [facility] ([id number]) [address] [place] [address] CHOLESTEROL:HDL 3.7 Normal 1.0-5.0 [facility] Comment on above: Performed By: #### C BCA, CMP, 3040-3, 01783-0, 67871-3, 61078-9 #### [facility] ([id number]) [address] [place] [address] 48828 Triglyceride [Mass/Vol] 154 mg/dL High 27-150 [facility] Comment on above: Performed By: #### C BCA, CMP, 3040-3, 09530-0, 17080-2, 24471-8 #### [facility] ([id number]) [address] [place] [address] 42566 MAGNESIUMon 02-27-2024 Magnesium [Mass/Vol] 2.0 mg/dL Normal 1.8-2.6 [facility] Comment on above: Performed By: #### C BCA, CMP, 3040-3, 89907-9, 16414-1, 50797-1 #### [facility] ([id number]) [address] [place] [address] 32026 TSH WITH REFLEXon 02-27-2024 TSH 1.27 uIU/mL Normal 0.49-4.67 [facility] Comment on above: Performed By: #### C BCA, CMP, 3040-3, 98572-5, 07994-5, 41198-8 #### [facility] ([id number]) [address] [place] [address] 65616 CBC AND AUTO DIFFon 10-19-19 24 ABSOLUTE BASOPHIL 0.0 X10E9/L Normal 0.0-0.2 [facility] Comment on above: Performed By: #### C BCA, CMP, 3040-3, 92136-6, 48738-1, 59189-4 #### [facility] ([id number]) [address] [place] [address] 81620 ABSOLUTE NEUTROPHIL 4.9 X10E9/L Normal 1.5-6.6 [facility] Comment on above: Performed By: #### C BCA, CMP, 3040-3, 27484-6, 40016-1, 88293-8 #### [facility] ([id number]) [address] [place] [address] 94598 Basophils/100 WBC (Bld) 0.4 % Normal [facility] Comment on above: Performed By: #### C BCA, CMP, 3040-3, 04968-8, 77382-1, 80748-2 #### [facility] ([id number]) [address] [place] [address] 73585 Eosinophils (Bld) [#/Vol] 0.1 10*3/uL Normal 0.0-0.4 [facility] Comment on above: Performed By: #### C BCA, CMP, 3040-3, 92192-7, 67800-8, 22618-8 #### [facility] ([id number]) [address] [place] [address] 32011 Eosinophils/100 WBC (Bld) 1.3 % Normal [facility] Comment on above: Performed By: #### C BCA, CMP, 3040-3, 40937-6, 00726-5, 16950-7 #### [facility] ([id number]) [address] [place] [address] 68765 Erythrocyte distribution width (RBC) [Ratio] 13.5 % Normal 11.5-15.0 [facility] Comment on above: Performed By: #### C BCA, CMP, 3040-3, 23085-5, 12983-5, 22148-7 #### [facility] ([id number]) [address] [place] [address] 75243 Hematocrit (Bld) [Volume fraction] 40.8 % Normal 39-49 [facility] Comment on above: Performed By: #### C BCA, CMP, 3040-3, 40813-1, 61246-0, 95235-7 #### [facility] ([id number]) [address] [place] [address] 87087 Hemoglobin (Bld) [Mass/Vol] 14.8 g/dL Normal 13.0-17.0 [facility] Comment on above: Performed By: #### C BCA, CMP, 3040-3, 05883-1, 50916-1, 00988-4 #### [facility] ([id number]) [address] [place] [address] 30659 Lymphocytes (Bld) [#/Vol] 1.4 10*3/uL Normal 1.0-3.5 [facility] Comment on above: Performed By: #### C BCA, CMP, 3040-3, 06703-3, 34878-2, 47662-7 #### [facility] ([id number]) [address] [place] [address] 40821 Lymphocytes/100 WBC (Bld) 19.7 % Normal [facility] Comment on above: Performed By: #### C BCA, CMP, 3040-3, 65744-8, 03470-8, 61738-7 #### [facility] ([id number]) [address] [place] [address] 85244 MCH (RBC) [Entitic mass] 31.1 pg Normal 27-34 [facility] Comment on above: Performed By: #### C BCA, CMP, 3040-3, 04633-2, 11101-0, 08098-9 #### [facility] ([id number]) [address] [place] [address] 27811 MCHC (RBC) [Mass/Vol] 36.1 g/dL High 32-36 [facility] Comment on above: Performed By: #### C BCA, CMP, 3040-3, 10519-8, 30306-7, 97968-6 #### [facility] ([id number]) [address] [place] [address] 22478 MCV (RBC) [Entitic vol] 86 fL Normal 80-100 [facility] Comment on above: Performed By: #### C BCA, CMP, 3040-3, 53099-9, 26753-1, 63328-5 #### [facility] ([id number]) [address] [place] [address] 88922 Monocytes (Bld) [#/Vol] 0.5 10*3/uL Normal 0-0.9 [facility] Comment on above: Performed By: #### C BCA, CMP, 3040-3, 03086-8, 11778-9, 18892-7 #### [facility] ([id number]) [address] [place] [address] 99073 Monocytes/100 WBC (Bld) 7.5 % Normal [facility] Comment on above: Performed By: #### C BCA, CMP, 3040-3, 60157-3, 23624-8, 57153-9 #### [facility] [facility] ([id number]) [address] [place] [address] 40425 Neutrophils/100 WBC (Bld) 71.1 % Normal [facility] Comment on above: Performed By: #### C BCA, CMP, 3040-3, 89650-3, 94595-2, 51747-2 #### [facility] ([id number]) [address] [place] [address] 93313 Platelet mean volume (Bld) [Entitic vol] 9.2 fL Normal 7-12 [facility] Comment on above: Performed By: #### C BCA, CMP, 3040-3, 87282-6, 86207-5, 53721-8 #### [facility] ([id number]) [address] [place] [address] 60527 Platelets (Bld) [#/Vol] 248 10*3/uL Normal 150-450 [facility] Comment on above: Performed By: #### C BCA, CMP, 3040-3, 73192-3, 98409-9, 25004-0 #### [facility] ([id number]) [address] [place] [address] 20370 RBC COUNT 4.74 X10E12/L Normal 4.10-5.70 [facility] Comment on above: Performed By: #### C BCA, CMP, 3040-3, 89623-2, 03011-7, 82089-0 #### [facility] ([id number]) [address] [place] [address] 21319 WBC (Bld) [#/Vol] 6.9 10*3/uL Normal 4.0-11.0 [facility] Comment on above: Performed By: #### C BCA, CMP, 3040-3, 44713-5, 24228-9, 33564-6 #### [facility] ([id number]) [address] [place] [address] 34740 COMPREHENSIVE METABOLIC PANE Geo 10-19-2023 Albumin [Mass/Vol] 3.7 g/dL Normal 3.2-5.3 [facility] Comment on above: Performed By: #### C BCA, CMP, 3040-3, 07117-7, 93491-5, 11428-8 #### [facility] ([id number]) [address] [place] [address] 14881 ALP [Catalytic activity/Vol] 35 U/L Low 39-130 [facility] Comment on above: Performed By: #### C BCA, CMP, 3040-3, 78889-4, 47158-8, 52652-7 #### [facility] ([id number]) [address] [place] [address] 09012 ALT [Catalytic activity/Vol] 35 U/L Normal 0-40 [facility] Comment on above: Performed By: #### C BCA, CMP, 3040-3, 60540-6, 64886-1, 46261-4 #### [facility] ([id number]) [address] [place] [address] 12362 Anion gap [Moles/Vol] 11 mmol/L Normal 5-15 [facility] Comment on above: Performed By: #### C BCA, CMP, 3040-3, 32768-4, 92382-2, 75671-2 #### [facility] ([id number]) [address] [place] [address] 95610 AST [Catalytic activity/Vol] 21 U/L Normal 0-41 [facility] Comment on above: Performed By: #### C BCA, CMP, 3040-3, 03370-7, 33269-5, 38884-9 #### [facility] ([id number]) [address] [place] [address] 79586 Bilirubin [Mass/Vol] 1.1 mg/dL Normal 0.3-1.2 [facility] Comment on above: Performed By: #### C BCA, CMP, 3040-3, 33344-5, 91873-9, 83239-4 #### [facility] ([id number]) [address] [place] [address] 86835 Calcium [Mass/Vol] 8.5 mg/dL Normal 8.5-10.5 [facility] Comment on above: Performed By: #### C BCA, CMP, 3040-3, 85007-9, 31523-9, 94533-8 #### [facility] ([id number]) [address] [place] [address] 62850 Chloride [Moles/Vol] 100 mmol/L Normal 98-109 [facility] Comment on above: Performed By: #### C BCA, CMP, 3040-3, 89521-2, 22405-0, 10249-7 #### [facility] ([id number]) [address] [place] [address] 31729 CO2 [Moles/Vol] 23 mmol/L Normal 22-32 [facility] Comment on above: Performed By: #### C BCA, CMP, 3040-3, 01906-0, 72435-4, 24090-1 #### [facility] ([id number]) [address] [place] [address] 66880 Creatinine [Mass/Vol] 0.70 mg/dL Normal 0.70-1.20 [facility] Comment on above: Result Comment: METH OD TRACEABLE TO IDMS STANDARD Performed By: #### C ELIZABET, CMP, 3040-3, 01440-9, 87570-3, 35134-4 #### [facility] ([id number]) [address] [place] [address] 43299 eGFR (CKD-EPI) NON-RACE DEPENDENT >90 Normal >59 [facility] Comment on above: Result Comment: Reported eGFR is based on the CKD-EPI 2020 equation that does not use a race coefficient. Performed By: #### C ELIZABET, CMP, 3040-3, 28766-4, 12921-3, 80561-6 #### [facility] ([id number]) [address] [place] [address] 34263 Glucose [Mass/Vol] 107 mg/dL High 65-99 [facility] Comment on above: Performed By: #### C BCA, CMP, 3040-3, 14248-7, 15765-8, 01369-6 #### [facility] ([id number]) [address] [place] [address] 32186 Potassium [Moles/Vol] 3.7 mmol/L Normal 3.5-5.0 [facility] Comment on above: Performed By: #### C BCA, CMP, 3040-3, 45154-3, 46538-0, 84252-6 #### [facility] ([id number]) [address] [place] [address] 01687 Protein [Mass/Vol] 6.0 g/dL Normal 6.0-8.0 [facility] Comment on above: Performed By: #### C BCA, CMP, 3040-3, 38163-8, 45396-4, 37579-1 #### [facility] ([id number]) [address] [place] [address] 92438 Sodium [Moles/Vol] 134 mmol/L Normal 134-146 [facility] Comment on above: Performed By: #### C BCA, CMP, 3040-3, 18846-0, 72758-3, 90526-1 #### [facility] ([id number]) [address] [place] [address] 26047 Urea nitrogen [Mass/Vol] 5 mg/dL Normal 5-23 [facility] Comment on above: Performed By: #### C BCA, CMP, 3040-3, 97644-5, 17562-5, 90493-8 #### [facility] ([id number]) [address] [place] [address] 53027 MAGNESIUMon 10-19-2023 Magnesium [Mass/Vol] 2.0 mg/dL Normal 1.8-2.6 [facility] Comment on above: Performed By: #### C BCA, CMP, 3040-3, 15713-8, 17517-1, 84776-1 #### [facility] ([id number]) [address] [place] [address] 77276 CBC AND AUTO DIFFon 10-18-19 24 ABSOLUTE BASOPHIL 0.1 X10E9/L Normal 0.0-0.2 [facility] Comment on above: Performed By: #### C BCA, CMP, 3040-3, 65553-9, 83188-8, 37482-9 #### [facility] ([id number]) [address] [place] [address] [place] [address] ABSOLUTE NEUTROPHIL 6.0 X10E9/L Normal 1.5-6.6 [facility] Comment on above: Performed By: #### C BCA, CMP, 3040-3, 46740-9, 97437-4, 09026-6 #### [facility] ([id number]) [address] [place] [address] 10899 Basophils/100 WBC (Bld) 0.7 % Normal [facility] Comment on above: Performed By: #### C BCA, CMP, 3040-3, 37947-0, 94362-1, 44161-2 #### [facility] ([id number]) [address] [place] [address] 58136 Eosinophils (Bld) [#/Vol] 0.2 10*3/uL Normal 0.0-0.4 [facility] Comment on above: Performed By: #### C BCA, CMP, 3040-3, 92037-0, 48580-8, 05204-3 #### [facility] ([id number]) [address] [place] [address] 69173 Eosinophils/100 WBC (Bld) 1.8 % Normal [facility] Comment on above: Performed By: #### C BCA, CMP, 3040-3, 19082-8, 13895-6, 23271-2 #### [facility] ([id number]) [address] [place] [address] 76516 Erythrocyte distribution width (RBC) [Ratio] 13.1 % Normal 11.5-15.0 [facility] Comment on above: Performed By: #### C BCA, CMP, 3040-3, 96588-0, 62630-4, 34482-6 #### [facility] ([id number]) [address] [place] [address] 17120 Hematocrit (Bld) [Volume fraction] 41.5 % Normal 39-49 [facility] Comment on above: Performed By: #### C BCA, CMP, 3040-3, 12814-9, 08010-4, 89335-2 #### [facility] ([id number]) [address] [place] [address] 82809 Hemoglobin (Bld) [Mass/Vol] 14.8 g/dL Normal 13.0-17.0 [facility] Comment on above: Performed By: #### C BCA, CMP, 3040-3, 12394-8, 89539-7, 96867-9 #### [facility] ([id number]) [address] [place] [address] 31178 Lymphocytes (Bld) [#/Vol] 1.7 10*3/uL Normal 1.0-3.5 [facility] Comment on above: Performed By: #### C BCA, CMP, 3040-3, 71788-3, 35731-2, 38315-1 #### [facility] ([id number]) [address] [place] [address] 52870 Lymphocytes/100 WBC (Bld) 19.8 % Normal [facility] Comment on above: Performed By: #### C BCA, CMP, 3040-3, 49066-1, 42010-8, 68714-6 #### [facility] ([id number]) [address] [place] [address] 74609 MCH (RBC) [Entitic mass] 31.0 pg Normal 27-34 [facility] Comment on above: Performed By: #### C BCA, CMP, 3040-3, 67712-2, 65237-0, 64798-8 #### [facility] ([id number]) [address] [place] [address] 65799 MCHC (RBC) [Mass/Vol] 35.7 g/dL Normal 32-36 [facility] Comment on above: Performed By: #### C BCA, CMP, 3040-3, 80091-3, 33944-4, 42735-9 #### [facility] ([id number]) [address] [place] [address] 44912 MCV (RBC) [Entitic vol] 87 fL Normal 80-100 [facility] Comment on above: Performed By: #### C BCA, CMP, 3040-3, 89175-7, 95614-3, 84774-9 #### [facility] ([id number]) [address] [place] [address] 50145 Monocytes (Bld) [#/Vol] 0.7 10*3/uL Normal 0-0.9 [facility] Comment on above: Performed By: #### C BCA, CMP, 3040-3, 94138-3, 89658-2, 16643-8 #### [facility] ([id number]) [address] [place] [address] 15560 Monocytes/100 WBC (Bld) 8.5 % Normal [facility] Comment on above: Performed By: #### C BCA, CMP, 3040-3, 47582-7, 39313-2, 03552-0 #### [facility] ([id number]) [address] [place] [address] 51185 Neutrophils/100 WBC (Bld) 69.2 % Normal [facility] Comment on above: Performed By: #### C BCA, CMP, 3040-3, 14686-9, 70457-9, 02274-9 #### [facility] ([id number]) [address] [place] [address] 82568 Platelet mean volume (Bld) [Entitic vol] 9.0 fL Normal 7-12 [facility] Comment on above: Performed By: #### C BCA, CMP, 3040-3, 21077-6, 48048-6, 94645-0 #### [facility] ([id number]) [address] [place] [address] 92538 Platelets (Bld) [#/Vol] 219 10*3/uL Normal 150-450 [facility] Comment on above: Performed By: #### C BCA, CMP, 3040-3, 11128-6, 60879-2, 22373-7 #### [facility] ([id number]) [address] [place] [address] 44041 RBC COUNT 4.78 X10E12/L Normal 4.10-5.70 [facility] Comment on above: Performed By: #### C BCA, CMP, 3040-3, 02014-8, 34093-6, 93133-0 #### [facility] ([id number]) [address] [place] [address] 76414 WBC (Bld) [#/Vol] 8.6 10*3/uL Normal 4.0-11.0 [facility] Comment on above: Performed By: #### C BCA, CMP, 3040-3, 23006-0, 97976-1, 54570-7 #### [facility] ([id number]) [address] [place] [address] 70632 COMPREHENSIVE METABOLIC PANE Geo 10-18-2023 Albumin [Mass/Vol] 4.0 g/dL Normal 3.2-5.3 [facility] Comment on above: Performed By: #### C BCA, CMP, 3040-3, 97496-9, 85698-7, 55102-2 #### [facility] ([id number]) [address] [place] [address] 61251 ALP [Catalytic activity/Vol] 34 U/L Low 39-130 [facility] Comment on above: Performed By: #### C BCA, CMP, 3040-3, 09813-2, 24478-4, 08157-4 #### [facility] ([id number]) [address] [place] [address] 75967 ALT [Catalytic activity/Vol] 22 U/L Normal 0-40 [facility] Comment on above: Performed By: #### C BCA, CMP, 3040-3, 35831-3, 46821-5, 63951-8 #### [facility] ([id number]) [address] [place] [address] 20235 Anion gap [Moles/Vol] 11 mmol/L Normal 5-15 [facility] Comment on above: Performed By: #### C BCA, CMP, 3040-3, 69216-5, 27249-6, 76969-5 #### [facility] ([id number]) [address] [place] [address] 07809 AST [Catalytic activity/Vol] 18 U/L Normal 0-41 [facility] Comment on above: Performed By: #### C BCA, CMP, 3040-3, 52188-5, 60031-5, 42130-6 #### [facility] ([id number]) [address] [place] [address] 46816 Bilirubin [Mass/Vol] 1.3 mg/dL High 0.3-1.2 [facility] Comment on above: Performed By: #### C BCA, CMP, 3040-3, 88207-9, 23568-7, 90165-8 #### [facility] ([id number]) [address] [place] [address] 36664 Calcium [Mass/Vol] 8.6 mg/dL Normal 8.5-10.5 [facility] Comment on above: Performed By: #### C BCA, CMP, 3040-3, 93425-8, 54424-0, 18994-1 #### [facility] ([id number]) [address] [place] [address] 92597 Chloride [Moles/Vol] 103 mmol/L Normal 98-109 [facility] Comment on above: Performed By: #### C BCA, CMP, 3040-3, 49455-7, 46940-4, 16377-2 #### [facility] ([id number]) [address] [place] [address] 56226 CO2 [Moles/Vol] 25 mmol/L Normal 22-32 [facility] Comment on above: Performed By: #### C BCA, CMP, 3040-3, 50749-5, 42875-0, 09088-1 #### [facility] ([id number]) [address] [place] [address] 17356 Creatinine [Mass/Vol] 0.78 mg/dL Normal 0.70-1.20 [facility] Comment on above: Result Comment: METH OD TRACEABLE TO IDMS STANDARD Performed By: #### C ELIZABET, CMP, 3040-3, 55551-1, 89458-8, 93102-6 #### [facility] ([id number]) [address] [place] [address] 42988 eGFR (CKD-EPI) NON-RACE DEPENDENT >90 Normal >59 [facility] Comment on above: Result Comment: Reported eGFR is based on the CKD-EPI 2020 equation that does not use a race coefficient. Performed By: #### C BCA, CMP, 3040-3, 47144-1, 91128-5, 09540-6 #### [facility] ([id number]) [address] [place] [address] 77174 Glucose [Mass/Vol] 116 mg/dL High 65-99 [facility] Comment on above: Performed By: #### C BCA, CMP, 3040-3, 37671-7, 08118-0, 93056-1 #### [facility] ([id number]) [address] [place] [address] 70232 Potassium [Moles/Vol] 3.6 mmol/L Normal 3.5-5.0 [facility] Comment on above: Performed By: #### C BCA, CMP, 3040-3, 87970-9, 12096-0, 10671-3 #### [facility] ([id number]) [address] [place] [address] 58432 Protein [Mass/Vol] 6.2 g/dL Normal 6.0-8.0 [facility] Comment on above: Performed By: #### C BCA, CMP, 3040-3, 15651-8, 22084-5, 28718-6 #### [facility] ([id number]) [address] [place] [address] 51162 Sodium [Moles/Vol] 139 mmol/L Normal 134-146 [facility] Comment on above: Performed By: #### C BCA, CMP, 3040-3, 91039-6, 99944-4, 97840-0 #### [facility] ([id number]) [address] [place] [address] 50083 Urea nitrogen [Mass/Vol] 6 mg/dL Normal 5-23 [facility] Comment on above: Performed By: #### C BCA, CMP, 3040-3, 06733-0, 76210-4, 96100-9 #### [facility] ([id number]) [address] [place] [address] 82392 MAGNESIUMon 10-18-2023 Magnesium [Mass/Vol] 2.0 mg/dL Normal 1.8-2.6 [facility] Comment on above: Performed By: #### C BCA, CMP, 3040-3, 69236-1, 98452-4, 90521-0 #### [facility] ([id number]) [address] [place] [address] 03674 CBC AND AUTO DIFFon 10-17-19 24 ABSOLUTE BASOPHIL 0.1 X10E9/L Normal 0.0-0.2 [facility] Comment on above: Performed By: #### C BCA, CMP, 3040-3, 18870-3, 08589-7, 67894-0 #### [facility] ([id number]) [address] [place] [address] 22316 ABSOLUTE NEUTROPHIL 3.3 X10E9/L Normal 1.5-6.6 [facility] Comment on above: Performed By: #### C BCA, CMP, 3040-3, 53495-2, 35643-6, 06821-9 #### [facility] ([id number]) [address] [place] [address] 97809 Basophils/100 WBC (Bld) 1.4 % Normal [facility] Comment on above: Performed By: #### C BCA, CMP, 3040-3, 78530-9, 24532-8, 21008-6 #### [facility] ([id number]) [address] [place] [address] 92454 Eosinophils (Bld) [#/Vol] 0.3 10*3/uL Normal 0.0-0.4 [facility] Comment on above: Performed By: #### C BCA, CMP, 3040-3, 03832-1, 75013-0, 87628-8 #### [facility] ([id number]) [address] [place] [address] 49658 Eosinophils/100 WBC (Bld) 3.6 % Normal [facility] Comment on above: Performed By: #### C BCA, CMP, 3040-3, 84331-3, 03672-3, 44471-1 #### [facility] ([id number]) [address] [place] [address] 01163 Erythrocyte distribution width (RBC) [Ratio] 13.5 % Normal 11.5-15.0 [facility] Comment on above: Performed By: #### C BCA, CMP, 3040-3, 96151-5, 50152-8, 57421-1 #### [facility] ([id number]) [address] [place] [address] 33698 Hematocrit (Bld) [Volume fraction] 41.1 % Normal 39-49 [facility] Comment on above: Performed By: #### C BCA, CMP, 3040-3, 20014-5, 42170-8, 55454-6 #### [facility] ([id number]) [address] [place] [address] 14360 Hemoglobin (Bld) [Mass/Vol] 14.8 g/dL Normal 13.0-17.0 [facility] Comment on above: Performed By: #### C BCA, CMP, 3040-3, 74455-6, 38186-1, 91145-8 #### [facility] ([id number]) [address] [place] [address] 32658 Lymphocytes (Bld) [#/Vol] 3.0 10*3/uL Normal 1.0-3.5 [facility] Comment on above: Performed By: #### C BCA, CMP, 3040-3, 40691-1, 11311-3, 07087-6 #### [facility] ([id number]) [address] [place] [address] 16821 Lymphocytes/100 WBC (Bld) 39.4 % Normal [facility] Comment on above: Performed By: #### C BCA, CMP, 3040-3, 39929-4, 14396-2, 21613-5 #### [facility] ([id number]) [address] [place] [address] 85746 MCH (RBC) [Entitic mass] 30.9 pg Normal 27-34 [facility] Comment on above: Performed By: #### C BCA, CMP, 3040-3, 04925-1, 10471-7, 07515-5 #### [facility] ([id number]) [address] [place] [address] 64815 MCHC (RBC) [Mass/Vol] 35.9 g/dL Normal 32-36 [facility] Comment on above: Performed By: #### C BCA, CMP, 3040-3, 12754-0, 97807-1, 65975-6 #### [facility] ([id number]) [address] [place] [address] 31264 MCV (RBC) [Entitic vol] 86 fL Normal 80-100 [facility] Comment on above: Performed By: #### C BCA, CMP, 3040-3, 17365-5, 14016-6, 10975-5 #### [facility] ([id number]) [address] [place] [address] 95644 Monocytes (Bld) [#/Vol] 0.9 10*3/uL Normal 0-0.9 [facility] Comment on above: Performed By: #### C BCA, CMP, 3040-3, 76002-0, 95048-0, 60606-6 #### [facility] ([id number]) [address] [place] [address] 76531 Monocytes/100 WBC (Bld) 12.0 % Normal [facility] Comment on above: Performed By: #### C BCA, CMP, 3040-3, 44746-7, 73594-6, 35475-8 #### [facility] ([id number]) [address] [place] [address] 08270 Neutrophils/100 WBC (Bld) 43.6 % Normal [facility] Comment on above: Performed By: #### C BCA, CMP, 3040-3, 11701-4, 75787-0, 38969-2 #### [facility] ([id number]) [address] [place] [address] 67680 Platelet mean volume (Bld) [Entitic vol] 8.9 fL Normal 7-12 [facility] Comment on above: Performed By: #### C BCA, CMP, 3040-3, 85108-6, 80536-8, 81732-3 #### [facility] ([id number]) [address] [place] [address] 18314 Platelets (Bld) [#/Vol] 214 10*3/uL Normal 150-450 [facility] Comment on above: Performed By: #### C BCA, CMP, 3040-3, 42954-1, 66692-6, 51616-0 #### [facility] ([id number]) [address] [place] [address] 51566 RBC COUNT 4.77 X10E12/L Normal 4.10-5.70 [facility] Comment on above: Performed By: #### C BCA, CMP, 3040-3, 29698-9, 49626-5, 45723-8 #### [facility] ([id number]) [address] [place] [address] 51686 WBC (Bld) [#/Vol] 7.7 10*3/uL Normal 4.0-11.0 [facility] Comment on above: Performed By: #### C BCA, CMP, 3040-3, 45143-2, 79731-8, 77406-0 #### [facility] ([id number]) [address] [place] [address] 81183 COMPREHENSIVE METABOLIC PANE Geo 10-17-2023 Albumin [Mass/Vol] 3.6 g/dL Normal 3.2-5.3 [facility] Comment on above: Performed By: #### C BCA, CMP, 3040-3, 37591-7, 61107-1, 76306-7 #### [facility] ([id number]) [address] [place] [address] 74515 ALP [Catalytic activity/Vol] 34 U/L Low 39-130 [facility] Comment on above: Performed By: #### C BCA, CMP, 3040-3, 05845-3, 84766-9, 49617-8 #### [facility] ([id number]) [address] [place] [address] 43506 ALT [Catalytic activity/Vol] 17 U/L Normal 0-40 [facility] Comment on above: Performed By: #### C BCA, CMP, 3040-3, 64625-8, 44446-9, 95923-6 #### [facility] ([id number]) [address] [place] [address] 53673 Anion gap [Moles/Vol] 9 mmol/L Normal 5-15 [facility] Comment on above: Performed By: #### C BCA, CMP, 3040-3, 40751-8, 83711-5, 30079-5 #### [facility] ([id number]) [address] [place] [address] 70630 AST [Catalytic activity/Vol] 15 U/L Normal 0-41 [facility] Comment on above: Performed By: #### C BCA, CMP, 3040-3, 02322-6, 31810-2, 76266-7 #### [facility] ([id number]) [address] [place] [address] 95913 Bilirubin [Mass/Vol] 1.1 mg/dL Normal 0.3-1.2 [facility] Comment on above: Performed By: #### C BCA, CMP, 3040-3, 85903-0, 84057-5, 74084-7 #### [facility] ([id number]) [address] [place] [address] 73129 Calcium [Mass/Vol] 8.6 mg/dL Normal 8.5-10.5 [facility] Comment on above: Performed By: #### C BCA, CMP, 3040-3, 16244-7, 11355-7, 75393-7 #### [facility] ([id number]) [address] [place] [address] 62439 Chloride [Moles/Vol] 98 mmol/L Normal 98-109 [facility] Comment on above: Performed By: #### C BCA, CMP, 3040-3, 63185-4, 04461-6, 25325-1 #### [facility] ([id number]) [address] [place] [address] 86388 CO2 [Moles/Vol] 28 mmol/L Normal 22-32 [facility] Comment on above: Performed By: #### C BCA, CMP, 3040-3, 78774-9, 14226-5, 63323-0 #### [facility] ([id number]) [address] [place] [address] 96890 Creatinine [Mass/Vol] 0.68 mg/dL Low 0.70-1.20 [facility] Comment on above: Result Comment: METH OD TRACEABLE TO IDMS STANDARD Performed By: #### C BCA, CMP, 3040-3, 61016-8, 26949-1, 50777-1 #### [facility] ([id number]) [address] [place] [address] 55574 eGFR (CKD-EPI) NON-RACE DEPENDENT >90 Normal >59 [facility] Comment on above: Result Comment: Reported eGFR is based on the CKD-EPI 2020 equation that does not use a race coefficient. Performed By: #### C BCA, CMP, 3040-3, 21423-7, 68970-2, 07787-1 #### [facility] ([id number]) [address] [place] [address] 57117 Glucose [Mass/Vol] 104 mg/dL High 65-99 [facility] Comment on above: Performed By: #### C BCA, CMP, 3040-3, 08506-6, 89136-9, 16157-7 #### [facility] ([id number]) [address] [place] [address] 71020 Potassium [Moles/Vol] 3.6 mmol/L Normal 3.5-5.0 [facility] Comment on above: Performed By: #### C BCA, CMP, 3040-3, 44308-0, 43317-5, 03454-0 #### [facility] ([id number]) [address] [place] [address] 21614 Protein [Mass/Vol] 5.9 g/dL Low 6.0-8.0 [facility] Comment on above: Performed By: #### C BCA, CMP, 3040-3, 51958-0, 44274-8, 56319-6 #### [facility] ([id number]) [address] [place] [address] 50050 Sodium [Moles/Vol] 135 mmol/L Normal 134-146 [facility] Comment on above: Performed By: #### C BCA, CMP, 3040-3, 14124-9, 54614-2, 48276-7 #### [facility] ([id number]) [address] [place] [address] 13084 Urea nitrogen [Mass/Vol] 8 mg/dL Normal 5-23 [facility] Comment on above: Performed By: #### C BCA, CMP, 3040-3, 99576-7, 33539-1, 20103-2 #### [facility] ([id number]) [address] [place] [address] 24617 MAGNESIUMon 10-17-2023 Magnesium [Mass/Vol] 2.0 mg/dL Normal 1.8-2.6 [facility] Comment on above: Performed By: #### C BCA, CMP, 3040-3, 44745-9, 07804-2, 94134-1 #### [facility] ([id number]) [address] [place] [address] 45741 CBC AND AUTO DIFFon 10-16-19 24 ABSOLUTE BASOPHIL 0.1 X10E9/L Normal 0.0-0.2 [facility] Comment on above: Performed By: #### C BCA, CMP, 3040-3, 23135-0, 07179-4, 09638-9 #### [facility] ([id number]) [address] [place] [address] 09463 ABSOLUTE NEUTROPHIL 4.3 X10E9/L Normal 1.5-6.6 [facility] Comment on above: Performed By: #### C BCA, CMP, 3040-3, 29130-0, 72101-9, 26121-6 #### [facility] ([id number]) [address] [place] [address] 16205 Basophils/100 WBC (Bld) 1.0 % Normal [facility] Comment on above: Performed By: #### C BCA, CMP, 3040-3, 35831-2, 02098-7, 20162-2 #### [facility] ([id number]) [address] [place] [address] 89208 Eosinophils (Bld) [#/Vol] 0.1 10*3/uL Normal 0.0-0.4 [facility] Comment on above: Performed By: #### C BCA, CMP, 3040-3, 13730-0, 24428-0, 83204-9 #### [facility] ([id number]) [address] [place] [address] 68463 Eosinophils/100 WBC (Bld) 1.6 % Normal [facility] Comment on above: Performed By: #### C BCA, CMP, 3040-3, 33093-4, 16612-1, 29320-3 #### [facility] ([id number]) [address] [place] [address] 00652 Erythrocyte distribution width (RBC) [Ratio] 13.5 % Normal 11.5-15.0 [facility] Comment on above: Performed By: #### C BCA, CMP, 3040-3, 77517-0, 70538-2, 78199-7 #### [facility] ([id number]) [address] [place] [address] Hematocrit (Bld) [Volume fraction] 47.0 % Normal 39-49 [facility] Comment on above: Performed By: #### C BCA, CMP, 3040-3, 15329-6, 18494-3, 60758-4 #### [facility] ([id number]) [address] [place] [address] 52578 Hemoglobin (Bld) [Mass/Vol] 16.5 g/dL Normal 13.0-17.0 [facility] Comment on above: Performed By: #### C BCA, CMP, 3040-3, 74233-7, 01272-3, 56876-4 #### [facility] ([id number]) [address] [place] [address] 80681 Lymphocytes (Bld) [#/Vol] 1.6 10*3/uL Normal 1.0-3.5 [facility] Comment on above: Performed By: #### C ELIZABET, CMP, 3040-3, 79292-6, 36458-3, 11901-2 #### [facility] ([id number]) [address] [place] [address] 89829 Lymphocytes/100 WBC (Bld) 22.3 % Normal [facility] Comment on above: Performed By: #### C BCA, CMP, 3040-3, 58296-7, 66386-0, 82426-2 #### [facility] ([id number]) [address] [place] [address] 56893 MCH (RBC) [Entitic mass] 30.3 pg Normal 27-34 [facility] Comment on above: Performed By: #### C BCA, CMP, 3040-3, 80062-7, 35364-6, 80278-2 #### [facility] ([id number]) [address] [place] [address] 65665 MCHC (RBC) [Mass/Vol] 35.1 g/dL Normal 32-36 [facility] Comment on above: Performed By: #### C BCA, CMP, 3040-3, 91559-5, 01088-9, 80882-5 #### [facility] ([id number]) [address] [place] [address] 91728 MCV (RBC) [Entitic vol] 86 fL Normal 80-100 [facility] Comment on above: Performed By: #### C BCA, CMP, 3040-3, 73065-8, 33553-4, 50588-6 #### [facility] ([id number]) [address] [place] [address] 29978 Monocytes (Bld) [#/Vol] 1.0 10*3/uL High 0-0.9 [facility] Comment on above: Performed By: #### C BCA, CMP, 3040-3, 73572-3, 81377-2, 43240-7 #### [facility] ([id number]) [address] [place] [address] 64190 Monocytes/100 WBC (Bld) 14.5 % Normal [facility] Comment on above: Performed By: #### C BCA, CMP, 3040-3, 03714-6, 97169-3, 60712-7 #### [facility] ([id number]) [address] [place] [address] 18403 Neutrophils/100 WBC (Bld) 60.6 % Normal [facility] Comment on above: Performed By: #### C BCA, CMP, 3040-3, 77004-7, 11756-5, 88741-2 #### [facility] ([id number]) [address] [place] [address] 46593 Platelet mean volume (Bld) [Entitic vol] 8.2 fL Normal 7-12 [facility] Comment on above: Performed By: #### C BCA, CMP, 3040-3, 64380-6, 31172-4, 70429-2 #### [facility] ([id number]) [address] [place] [address] 21692 Platelets (Bld) [#/Vol] 261 10*3/uL Normal 150-450 [facility] Comment on above: Performed By: #### C BCA, CMP, 3040-3, 71354-1, 94489-4, 06842-1 #### [facility] ([id number]) [address] [place] [address] 36506 RBC COUNT 5.46 X10E12/L Normal 4.10-5.70 [facility] Comment on above: Performed By: #### C BCA, CMP, 3040-3, 57458-4, 05805-6, 89194-0 #### [facility] ([id number]) [address] [place] [address] 70830 WBC (Bld) [#/Vol] 7.0 10*3/uL Normal 4.0-11.0 [facility] Comment on above: Performed By: #### C BCA, CMP, 3040-3, 09938-3, 23553-6, 96838-3 #### [facility] ([id number]) [address] [place] [address] 32860 COMPREHENSIVE METABOLIC PANE Geo 10-16-2023 Albumin [Mass/Vol] 4.4 g/dL Normal 3.2-5.3 [facility] Comment on above: Performed By: #### C BCA, CMP, 3040-3, 52138-1, 28350-6, 73203-7 #### [facility] ([id number]) [address] [place] [address] 48197 ALP [Catalytic activity/Vol] 41 U/L Normal 39-130 [facility] Comment on above: Performed By: #### C BCA, CMP, 3040-3, 15206-6, 51401-7, 18898-3 #### [facility] ([id number]) [address] [place] [address] 88752 ALT [Catalytic activity/Vol] 20 U/L Normal 0-40 [facility] Comment on above: Performed By: #### C BCA, CMP, 3040-3, 21124-4, 16367-5, 31349-1 #### [facility] ([id number]) [address] [place] [address] 41836 Anion gap [Moles/Vol] 4 mmol/L Low 5-15 [facility] Comment on above: Performed By: #### C BCA, CMP, 3040-3, 37888-8, 42280-9, 07373-1 #### [facility] ([id number]) [address] [place] [address] 63396 AST [Catalytic activity/Vol] 16 U/L Normal 0-41 [facility] Comment on above: Performed By: #### C BCA, CMP, 3040-3, 58093-8, 87043-0, 12611-7 #### [facility] ([id number]) [address] [place] [address] 80996 Bilirubin [Mass/Vol] 1.1 mg/dL Normal 0.3-1.2 [facility] Comment on above: Performed By: #### C BCA, CMP, 3040-3, 20933-3, 38405-3, 71989-3 #### [facility] ([id number]) [address] [place] [address] 82394 Calcium [Mass/Vol] 8.9 mg/dL Normal 8.5-10.5 [facility] Comment on above: Performed By: #### C BCA, CMP, 3040-3, 19858-9, 89102-2, 52781-8 #### [facility] ([id number]) [address] [place] [address] 77226 Chloride [Moles/Vol] 100 mmol/L Normal 98-109 [facility] Comment on above: Performed By: #### C BCA, CMP, 3040-3, 18345-6, 40160-7, 21492-1 #### [facility] ([id number]) [address] [place] [address] 06467 CO2 [Moles/Vol] 30 mmol/L Normal 22-32 [facility] Comment on above: Performed By: #### C BCA, CMP, 3040-3, 95981-3, 75392-1, 50993-0 #### [facility] ([id number]) [address] [place] [address] 93177 Creatinine [Mass/Vol] 0.81 mg/dL Normal 0.70-1.20 [facility] Comment on above: Result Comment: METH OD TRACEABLE TO IDMS STANDARD Performed By: #### C BCA, CMP, 3040-3, 98834-8, 65909-0, 15809-5 #### [facility] ([id number]) [address] [place] [address] 58236 eGFR (CKD-EPI) NON-RACE DEPENDENT >90 Normal >59 [facility] Comment on above: Result Comment: Reported eGFR is based on the CKD-EPI 2020 equation that does not use a race coefficient. Performed By: #### C BCA, CMP, 3040-3, 38536-9, 00736-1, 66292-9 #### [facility] ([id number]) [address] [place] [address] 92239 Glucose [Mass/Vol] 97 mg/dL Normal 65-99 [facility] Comment on above: Performed By: #### C BCA, CMP, 3040-3, 02485-9, 77938-8, 18637-1 #### [facility] ([id number]) [address] [place] [address] 89774 Potassium [Moles/Vol] 3.7 mmol/L Normal 3.5-5.0 [facility] Comment on above: Performed By: #### C BCA, CMP, 3040-3, 73775-8, 35022-9, 01098-6 #### [facility] ([id number]) [address] [place] [address] 12482 Protein [Mass/Vol] 7.2 g/dL Normal 6.0-8.0 [facility] Comment on above: Performed By: #### C BCA, CMP, 3040-3, 65117-2, 55776-0, 94066-4 #### [facility] ([id number]) [address] [place] [address] 85330 Sodium [Moles/Vol] 134 mmol/L Normal 134-146 [facility] Comment on above: Performed By: #### C BCA, CMP, 3040-3, 65848-6, 39705-7, 86680-6 #### [facility] ([id number]) [address] [place] [address] 32422 Urea nitrogen [Mass/Vol] 10 mg/dL Normal 5-23 [facility] Comment on above: Performed By: #### C BCA, CMP, 3040-3, 95636-2, 83887-1, 02834-8 #### [facility] ([id number]) [address] [place] [address] ABDOMEN AND PELVIS W CONT on 10-16-2023 CT ABDOMEN AND PELVIS W CONT CT ABDOMEN AND PELVIS W CONT CT ABDOMEN AND PELVIS W CONT HISTORY: Abdominal pain, nausea, vomiting, weakness, epigastric pain COMPARISON: None TECHNIQUE: CT images of the abdomen and pelvis obtained following administration of contrast. Automated exposure control was utilized.All CT scans at this facility use dose modulation, iterative reconstruction, and/or weight based dosing when appropriate to reduce radiation dose to as low as reasonably achievable. CONTRAST: Oral: None IV: 100 mL Omnipaque 300 FINDINGS: LOWER CHEST: Lung bases are clear. LIVER AND BILIARY: Noncirrhotic liver morphology. No definite hepatic lesion. Portal venous system is patent. Gallbladder is unremarkable. No biliary dilatation. PANCREAS: Unremarkable SPLEEN: Unremarkable. ADRENALS: Unremarkable. KIDNEYS, URETERS, AND BLADDER: Symmetric enhancement of the renal parenchyma. No renal mass or lesion. The ureters are unremarkable. No evidence of collecting system dilatation. Limited assessment of the bladder given the degree of distension. REPRODUCTIVE ORGANS: Unremarkable. GI TRACT AND PERITONEUM: The appendix and terminal ileum are unremarkable. No evidence of bowel obstruction. No pericolonic fat stranding or free intraperitoneal gas. VASCULATURE: Unremarkable LYMPH NODES: No enlarged lymph nodes by size criteria. MUSCULOSKELETAL: No acute abnormalities. Areas of subarticular lucency within the femoral heads bilaterally may be degenerative in etiology. Underlying areas of avascular necrosis are possible. IMPRESSION: No CT evidence of acute abnormality within the abdomen or pelvis. Approved by Resident Iqra Bates DO on 10/16/2023 5:38 PM I, Velasquez Hernández MD have personally reviewed the image(s) and agree with and/or edited the report Finalized by Velasquez Hernández MD on 10/16/2023 7:02 PM Normal [facility] LIPASEon 10-16-2023 Lipase [Catalytic activity/Vol] 30 U/L Normal 17-40 [facility] Comment on above: Performed By: #### C ELIZABET, CMP, 3040-3, 24373-3, 59734-5, 28220-2 #### [facility] ([id number]) [address] [place] [address] 65298 Lactate (P lilly) [Moles/Vol]o n 10-16-2023 LACTATE W/REFLEX 1.3 mmol/L Normal 0.4-2.0 [facility] Comment on above: Result Comment: Result did not trigger repeat Lactate, re-order if needed. Performed By: #### C BCA, CMP, 3040-3, 57714-1, 97031-3, 17525-2 #### [facility] ([id number]) [address] [place] [address] 05173 MAGNESIUMon 10-16-2023 Magnesium [Mass/Vol] 2.3 mg/dL Normal 1.8-2.6 [facility] Comment on above: Performed By: #### C BCA, CMP, 3040-3, 69755-4, 88317-9, 47735-5 #### [facility] ([id number]) [address] [facility], [place] [address] SARS/FLU A+B/RSV by NAAT/Mol ecularon 10-16-2023 SARS/FLU A+B/RSV by NAAT/Molecular FLU A PCR Positive (qualifier value) FLU B PCR Negative (qualifier value) RSV by PCR Negative (qualifier value) SARS CoV 2 Not detected (qualifier value) NOTE The Xpert Xpress SARS-CoV-2/Flu/RSV Plus test is a rapid, multiplexed real-time RT-PCR test intended for the simultaneous qualitative detection and differentiation of SARS-CoV-2, influenza A, influenza B and respiratory syncytial virus (RSV) viral RNA from individuals suspected of respiratory viral infection consistent with COVID-19 by their healthcare provider. This test has not been validated in asymptomatic patients. The Xpert Xpress SARS-CoV-2 test is intended for use by qualified and trained operators who are performing tests using either [employer] or [employer] systems and is limited to laboratories that meet the CLIA requirements to perform high and moderate complexity tests. The Xpert Xpress SARS-CoV-2/Flu/RSV Plus is only for use under the Food and Drug Administration's Emergency Use Authorization. Results are for the simultaneous detection and differentiation of SARS-CoV-2, influenza A, influenza B and RSV nucleic acids in clinical specimens. SARS-CoV-2, influenza A, influenza B and RSV RNA identified by this test are generally detectable in upper respiratory samples during the acute phase of infection. Positive results are indicative of the presence of the identified virus, but do not rule out bacterial infection or co-infection with other pathogens not detected by this test. Clinical correlation with patient history and other diagnostic information is necessary to determine patient infection status. The agent detected may not be the definite cause of disease. Negative results do not preclude SARS-CoV-2, influenza A, influenza B and RSV infection and should not be used as the sole basis for treatment or other patient management decisions. Negative results must be combined with clinical observations, patient history and epidemiological information. An Invalid result may occur with specimen-associated inhibition unable to be resolved with specimen repeat. Fact Sheet for Healthcare Providers: https://www.fda.gov/ media/228928/downloa d Fact Sheet for Patients: https://www.fda.gov/ media/148172/downloa d Normal [facility] Comment on above: Performed By: #### C OVFLR #### [facility] ([id number]) [address] [place] [address] 23887 TROPONIN Ion 10-16-2023 Troponin I.cardiac [Mass/Vol] ng/mL Normal 0.00-0.04 [facility] Comment on above: Performed By: #### C BCA, CMP, 3040-3, 56256-7, 96533-9, 18306-3 #### [facility] ([id number]) [address] [place] [address] 50190 URN MACROSCOPIC NURon 2023 BILIRUBIN NICOLETTE MODERATE Abnormal NEG [facility] Comment on above: Performed By: #### N UM #### [facility] ([id number]) [address] [place] [address] 78964 BLOOD/HGB NICOLETTE Negative Normal NEG [facility] Comment on above: Performed By: #### N UM #### [facility] ([id number]) [address] [place] [address] 14212 GLUCOSE NICOLETTE 100 mg/dL Abnormal NEG [facility] Comment on above: Performed By: #### N UM #### [facility] ([id number]) [address] [place] [address] 83681 KETONES NICOLETTE 40 mg/dL Abnormal NEG [facility] Comment on above: Performed By: #### N UM #### [facility] ([id number]) [address] [place] [address] 29518 LEUKOCYTE ESTERASE NICOLETTE Negative Normal NEG [facility] Comment on above: Performed By: #### N UM #### [facility] ([id number]) [address] [place] [address] [place] [address] NITRITE NICOLETTE Negative Normal NEG [facility] Comment on above: Performed By: #### N UM #### [facility] ([id number]) [address] [place] [address] 14996 PH NICOLETTE >=9.0 Normal 5.0-8.5 [facility] Comment on above: Performed By: #### N UM #### [facility] ([id number]) [address] [place] [address] 52437 PROTEIN NICOLETTE 30 mg/dL Abnormal NEG [facility] Comment on above: Performed By: #### N UM #### [facility] ([id number]) [address] [place] [address] 22037 SPECIFIC GRAVITY NICOLETTE 1.020 Normal 1.003-1.035 [facility] Comment on above: Performed By: #### N UM #### [facility] ([id number]) [address] [place] [address] 92297 UROBILINOGEN NICOLETTE >=8.0 Normal <1.1 [facility] Comment on above: Performed By: #### N UM #### [facility] ([id number]) [address] [place] [address] 88450 XR CHEST 2 VWSon 10-16-2023 XR CHEST 2 VWS XR CHEST 2 VWS XR CHEST 2 VWS HISTORY: Nausea, vomiting, weakness, abdominal pain, concern for pneumonia COMPARISON: None TECHNIQUE: PA and lateral upright films obtained. FINDINGS: Trachea is midline. The cardiomediastinal silhouette is within normal limits. No focal consolidation. No pneumothorax or pleural effusion. IMPRESSION: No radiographic evidence of acute cardiopulmonary abnormality. Approved by Resident Iqra Bates DO on 10/16/2023 5:37 PM I, Velasquez Hernández MD have personally reviewed the image(s) and agree with and/or edited the report Finalized by Velasquez Hernández MD on 10/16/2023 5:49 PM Normal [facility] Automated basophil %Ordered By: Sabra Gotti on 10-12-2023 Basophils/100 WBC (Bld) 0.6 % Normal . [facility] Comment on above: Performed By: #### C BC, BMP #### [address] Automated basophil countOrde red By: Sabra Gotti on 10-12-2023 Basophils (Bld) [#/Vol] 0.0 10*3/uL Normal 0.0-0.2 [facility] Comment on above: Result Comment: PERF ORMED BY: [place] [address] PATHOLOGIST SUPERVISING LAW ENFORCEMENT ANALYST ANA GRACIA M.D. Performed By: #### C BC, BMP #### [address] Automated blood monocyte cou ntOrdered By: Sabra Gotti on 10-12-2023 Monocytes (Bld) [#/Vol] 1.4 10*3/uL High 0.0-0.8 [facility] Comment on above: Performed By: #### C BC, BMP #### [address] Automated eosinophil %Ordere d By: Sabra Gotti on 10-12-2023 Eosinophils/100 WBC (Bld) 0.2 % Normal . [facility] Comment on above: Performed By: #### C BC, BMP #### [address] Automated eosinophil countOr dered By: Sabra Gotti on 10-12-2023 Eosinophils (Bld) [#/Vol] 0.0 10*3/uL Normal 0.0-0.45 [facility] Comment on above: Performed By: #### C BC, BMP #### [address] Automated monocyte %Ordered By: Sabra Gotti on 10-12-2023 Monocytes/100 WBC (Bld) 21.9 % Normal . [facility] Comment on above: Performed By: #### C BC, BMP #### [address] Automated neutrophil %Ordere d By: Sabra Gotti on 10-12-2023 Neutrophils/100 WBC (Bld) 63.5 % Normal . [facility] Comment on above: Performed By: #### C BC, BMP #### [address] Basic Metabolic Panelon 04 Creatinine Clr Calc Pharmacy 121.17 Normal [facility] Comment on above: Result Comment: PERF ORMED BY: [place] [address] PATHOLOGIST SUPERVISING LAW ENFORCEMENT ANALYST ANA GRACIA M.D. Performed By: #### C BC, BMP #### [address] GFR/1.73 sq M.predicted MDRD (S/P/Bld) [Vol rate/Area] mL/min/{1.73_m2} Normal [facility] Comment on above: Performed By: #### C BC, BMP #### [address] Calcium [Mass/volume] in Ser um or PlasmaOrdered By: Sabra Gotti on 10-12-2023 Calcium [Mass/Vol] 8.7 mg/dL Normal 8.6-10.3 [facility] Comment on above: Performed By: #### C BC, BMP #### [place] [address] [place] Carbon dioxide, total [Moles /volume] in Serum or PlasmaOrdered By: Sabra Gotti on 10-12-2023 CO2 [Moles/Vol] 24.6 mmol/L Normal 21.0-31.0 [facility] Comment on above: Performed By: #### C BC, BMP #### [place] [address] [place] Chloride [Moles/volume] in S [place] or PlasmaOrdered By: Sabra Gotti on 10-12-2023 Chloride [Moles/Vol] 100 mmol/L Normal 98-107 [facility] Comment on above: Performed By: #### C BC, BMP #### [address] Complete Blood Count Auto Di ffon 10-12-2023 Mean Corpuscular HGB Conc 34.8 g/dL Normal 32.5-35.6 [facility] Comment on above: Performed By: #### C BC, BMP #### [place] [address] [place] Monocytes/100 WBC (Bld) 22.65 % High 0.00-20.00 [facility] Comment on above: Result Comment: For adults in ED, MDW > 20.0 may be associated with a higher risk of sepsis during the first 12 hrs of hospital admission Performed By: #### C BC, BMP #### [address] NRBC% 0.2 /100{WBC} Normal 0-0.5 [facility] Comment on above: Performed By: #### C BC, BMP #### [address] Creatinine [Mass/volume] in Serum or PlasmaOrdered By: Sabra Gotti on 10-12-2023 Creatinine [Mass/Vol] 0.76 mg/dL Normal 0.70-1.30 [facility] Comment on above: Performed By: #### C BC, BMP #### [address] ECG 12 lead ECGon 10-12-2023 ECG 12 lead ECG [facility] Main Zoe [address] [place] [address] Electrocardiograph Report Signed Patient: Claudine Rosales MR#: [id number] [birth year] : 1995 Acct:[id number] Age/Sex: 27 / M ADM Date: 10/12/23 Loc: ER Room: Type: [facility] ER Attending Dr: Ordering Provider: Sabra Gotti MD Date of Service: 10/12/2310/31/640 ECG/ECG 12 lead ECG: Nausea/Vomiting/Diar david Copies to: Test Reason : Blood Pressure [...] By Sabra Gotti MD 10/12/23 1450 Normal [facility] Erythrocyte distribution wid th [Ratio] by Automated countOrdered By: Sabra Gotti on 10-12-2023 Erythrocyte distribution width (RBC) [Ratio] 14.1 % Normal 12.0-14.8 [facility] Comment on above: Performed By: #### C BC, BMP #### [address] Erythrocytes [#/volume] in B lood by Automated countOrdered By: Sabra Gotti on 10-12-2023 RBC (Bld) [#/Vol] 5.16 10*6/uL Normal 3.90-5.60 [facility] Comment on above: Performed By: #### C BC, BMP #### [place] [address] [place] Glucose [Mass/volume] in Ser um or PlasmaOrdered By: Sabra Gotti on 10-12-2023 Glucose [Mass/Vol] 102 mg/dL High 70-100 [facility] Comment on above: ADA recommended refe rence rangeRandom Glucose Reference Range is dependent on time and content of last meal. Glucose of more than 200 mg/dL in a nonstressed, ambulatory subject supports the diagnosis of Diabetes Mellitus. Result Comment: [place] om Glucose Reference Range is dependent on time and content of last meal. Glucose of more than 200 mg/dL in a nonstressed, ambulatory subject supports the diagnosis of Diabetes Mellitus. ADA recommended reference range Performed By: #### C BC, BMP #### [place] [address] [place] Hematocrit [Volume Fraction] of Blood by Automated countOrdered By: Sabra Gotti on 10-12-2023 Hematocrit (Bld) [Volume fraction] 45.6 % Normal 38.8-50.0 [facility] Comment on above: Performed By: #### C MALISSA, BMP #### [facility] [address] Hemoglobin [Mass/volume] in BloodOrdered By: Sabra Gotti on 10-12-2023 Hemoglobin (Bld) [Mass/Vol] 15.9 g/dL Normal 13.0-17.0 [facility] Comment on above: Performed By: #### C BC, BMP #### [facility] [address] Leukocytes [#/volume] correc kailash for nucleated erythrocytes in Blood by Automated counOrdered By: Sabra Gotti on 10-12-2023 WBC corrected for nucl RBC Auto (Bld) [#/Vol] 6.5 10*3/uL 4.1-10.5 [facility] Leukocytes [#/volume] in Blo od by Automated countOrdered By: Sabra Gotti on 10-12-2023 WBC (Bld) [#/Vol] 6.5 10*3/uL Normal 4.1-10.5 [facility] Comment on above: Performed By: #### C MALISSA, BMP #### [address] Lymphocytes [#/volume] in Bl ood by Automated countOrdered By: Sabra Gotti on 10-12-2023 Lymphocytes (Bld) [#/Vol] 0.9 10*3/uL Low 1.00-4.8 [facility] Comment on above: Performed By: #### C BC, BMP #### [facility] [address] [place] [address] [place] Lymphocytes/100 leukocytes i n Blood by Automated countOrdered By: Sabra Gotti on 10-12-2023 Lymphocytes/100 WBC (Bld) 13.8 % Normal . [facility] Comment on above: Performed By: #### C BC, BMP #### [facility] [address] [place] [address] [place] MCH [Entitic mass] by Automa kailash countOrdered By: Sabra Gotti on 10-12-2023 MCH (RBC) [Entitic mass] 30.7 pg Normal 27.5-35.2 [facility] Comment on above: Performed By: #### C MALISSA, CHAKA #### [facility] [address] [place] [address] MCHC Auto (RBC) [Mass/Vol]Or dered By: Sabra Gotti on 10-12-2023 MCHC (RBC) [Mass/Vol] 34.8 g/dL 32.5-35.6 [facility] MCV [Entitic volume] by Auto mated countOrdered By: Sabra Gotti on 10-12-2023 MCV (RBC) [Entitic vol] 88.3 fL Normal 83.5-101 [facility] Comment on above: Performed By: #### C MALISSA, CHAKA #### [address] Monocyte distribution width [Entitic volume] in Blood by AutomatedOrdered By: Sabra Gotti on 10-12-2023 Monocyte distribution width Auto (Bld) [Entitic vol] 22.65 % 0.00-20.00 [facility] Comment on above: For adults in ED, MD W > 20.0 may be associated with a higher risk of sepsis during the first 12 hrs of hospital admission Neutrophils [#/volume] in Bl ood by Automated countOrdered By: Sabra Gotti on 10-12-2023 Neutrophils (Bld) [#/Vol] 4.1 10*3/uL Normal 1.8-7.7 [facility] Comment on above: Performed By: #### C MALISSA, BMP #### [facility] [address] [place] [address] No Panel InformationOrdered By: Sabra Gotti on 10-12-2023 Estimated GFR (CKD-EPI) > 60.0 mL/Min [facility] Creatinine Clearance (Chem 121.17 [facility] Nucleated erythrocytes [Pres ence] in Blood by Automated countOrdered By: Sabra Gotti on 10-12-2023 Nucleated RBC Auto Ql (Bld) 0.2 /100{WBC} 0-0.5 [facility] Platelet mean volume [Entiti c volume] in Blood by Automated countOrdered By: Sabra Gotti on 10-12-2023 Platelet mean volume (Bld) [Entitic vol] 8.7 fL Normal 6.6-10.1 [facility] Comment on above: Performed By: #### C BC, BMP #### [address] Platelets [#/volume] in Bloo d by Automated countOrdered By: Sabra Gotti on 10-12-2023 Platelets (Bld) [#/Vol] 198 10*3/uL Normal 150-450 [facility] Comment on above: Performed By: #### C BC, BMP #### [address] Potassium [Moles/volume] in Serum or PlasmaOrdered By: Sabra Gotti on 10-12-2023 Potassium [Moles/Vol] 4.0 mmol/L Normal 3.5-5.1 [facility] Comment on above: Performed By: #### C BC, BMP #### [address] Serum or plasma anion gap de terminationOrdered By: Sabra Gotti on 10-12-2023 Anion gap [Moles/Vol] 15.4 mmol/L High 6.0-15.0 [facility] Comment on above: Performed By: #### C BC, BMP #### [address] Sodium [Moles/volume] in Ser um or PlasmaOrdered By: Sabra Gotti on 10-12-2023 Sodium [Moles/Vol] 136 mmol/L Normal 136-145 [facility] Comment on above: Performed By: #### C BC, BMP #### [address] Urea nitrogen [Mass/volume] in Serum or PlasmaOrdered By: Sabra Gotti on 10-12-2023 Urea nitrogen [Mass/Vol] 10 mg/dL Normal 7-25 [facility] Comment on above: Performed By: #### C BC, BMP #### [place] [address] [place] Covid-19 PCR (CVDTBH)on SARS-CoV-2 (COVID-19) RNA ADDIS+probe Ql (Unsp spec) Detected Critically abnormal NOT DETECTED [facility] Comment on above: Result Comment: This test is not yet approved or cleared by the [place] FDA. When there are no FDA-approved or cleared tests available, and other criteria are met, FDA can make tests available under an emergency access mechanism called an Emergency Use Authorization (EUA). The EUA for this test is supported by the [place] of Health and Human Service's declaration that [...] used). Performed By: #### C VDTB #### [facility] [address] [place] [address] Dr. Krishan Miller INFLUENZA A AND B AGon 06-15 [facility] SEE BELOW Normal [facility] Comment on above: Result Comment: Nega tive for Flu A protein angiten. Infection due to Flu A cannot be ruled out. Flu A angiten in the sample may be below the detection limit of the test. Performed By: #### I NFLUAB #### [facility] [address] [place] [address] Dr. [facility] Normal [facility] Comment on above: Result Comment: Nega tive for Flu B protein antigen. Infection due to Flu B cannot be ruled out. Flu B antigen in the sample may be below the detection limit of the test. Performed By: #### I NFLUAB #### [facility] [address] [place] [address] Dr. Krishan Miller INFLUENZA A AG Negative Normal NEGATIVE SEE COMMENT [facility] Comment on above: Performed By: #### I NFLUAB #### [facility] [address] [place] [address] Dr. Krishan Miller INFLUENZA B AG Negative Normal NEGATIVE SEE COMMENT [facility] Comment on above: Performed By: #### I NFLUAB #### [facility] [address] [address] [address] Krishan Miller INTERNAL CONTROLS Within Normal Limits Normal Wi thin Normal Limits [facility] Comment on above: Performed By: #### I NFLUAB #### [facility] [address] [place], [place] [address] Dr. Krishan Miller Registrationon 12-08-2021 Registration [id number]:127 Normal [facility] Consenton 11-30-2021 Consent [id number] #[id number]:127 Normal [facility] ALCOHOLon 05-22-2019 Ethanol [Mass/Vol] NONE DETECTED Normal [facility] Comment on above: Result Comment: Divi de by 1000 to convert mg/dL to percent. Example: 100mg/dL = 0.1%. Performed By: #### 2 0621 #### [facility] [address] [place] [address], [facility] CBC COMPLETE BLOOD COUNTon 07-22-2018 Erythrocyte distribution width (RBC) [Ratio] 12.9 % Normal 11.5-15.0 [facility] Comment on above: Performed By: #### 2 0621 #### [facility] [address] [place] [address], [place] Hematocrit (Bld) [Volume fraction] 47.7 % Normal 39.0-50.0 [facility] Comment on above: Performed By: #### 2 0621 #### [facility] [address] [place] [address], [place] Hemoglobin (Bld) [Mass/Vol] 16.1 g/dL Normal 13.0-17.0 [facility] Comment on above: Performed By: #### 2 0621 #### [facility] [address] [place] [address], [place] MCH (RBC) [Entitic mass] 30.5 pg Normal 27.0-33.0 [facility] Comment on above: Performed By: #### 2 0621 #### [facility] [address] [place] [address], [facility] MCHC (RBC) [Mass/Vol] 33.8 g/dL Normal 32.0-35.0 [facility] Comment on above: Performed By: #### 2 0621 #### [facility] [address] [facility] [address], [facility] MCV (RBC) [Entitic vol] 90.3 fL Normal 82.0-98.0 T he [facility] Comment on above: Performed By: #### 2 0621 #### [facility] [address] [facility] [place] [address], [facility] Nucleated RBC/100 WBC (Bld) [Ratio] 0 % Normal 0-0 [facility] Comment on above: Performed By: #### 2 0621 #### [facility] [address] [facility] [place] [address], [facility] PLAT CNT 239 10*3/uL Normal 150-400 [facility] Comment on above: Performed By: #### 2 0621 #### [facility] [address] [facility] [place] [address], [facility] RBC (Bld) [#/Vol] 5.28 10*6/uL Normal 4.20-5.70 [facility] Comment on above: Performed By: #### 2 0621 #### [facility] [address] [facility] [place] [address], [facility] WBC (Bld) [#/Vol] 7.47 10*3/uL Normal 4.00-10.60 [facility] Comment on above: Performed By: #### 2 0621 #### [facility] [address] [place] [address], [facility] COMP METABOLIC PANELon 05-22 Albumin [Mass/Vol] 5.0 g/dL Normal 3.5-5.7 [facility] Comment on above: Performed By: #### 2 0621 #### [facility] [address] [place] [address], [facility] ALKALINE PHOSPH 39 IU/L Normal 34-104 [facility] Comment on above: Performed By: #### 2 0621 #### [facility] [address] [place] [address], [facility] ALT [Catalytic activity/Vol] 73 U/L High 7-52 [facility] Comment on above: Performed By: #### 2 0621 #### [facility] [address] [facility] [address], [facility] AST [Catalytic activity/Vol] 38 U/L Normal 13-39 [facility] Comment on above: Performed By: #### 2 0621 #### [facility] [address] [place] [address], [facility] Bilirubin [Mass/Vol] 0.5 mg/dL Normal 0.3-1.0 [facility] Comment on above: Performed By: #### 2 0621 #### [facility] [address] [facility] [place] [address], [facility] Calcium [Mass/Vol] 9.7 mg/dL Normal 8.6-10.3 [facility] Comment on above: Performed By: #### 2 0621 #### [facility] [address] [place] [address], [place] Chloride [Moles/Vol] 101 mmol/L Normal 98-107 [facility] Comment on above: Performed By: #### 2 0621 #### [facility] [address] [place] [address], [place] CO2 [Moles/Vol] 30 mmol/L Normal 21-31 [facility] Comment on above: Performed By: #### 2 0621 #### [facility] [address] [place] [address], [place] Creatinine [Mass/Vol] 0.94 mg/dL Normal 0.70-1.30 [facility] Comment on above: Performed By: #### 2 0621 #### [facility] [address] [place] [address], [place] GFR/1.73 sq M predicted among blacks MDRD (S/P/Bld) [Vol rate/Area] mL/min/{1.73_m2} Normal >60 [facility] Comment on above: Performed By: #### 2 0621 #### [facility] [address] [place] [address], [place] GFR/1.73 sq M predicted among non-blacks MDRD (S/P/Bld) [Vol rate/Area] mL/min/{1.73_m2} Normal >60 [facility] Comment on above: Performed By: #### 2 0621 #### [facility] [address] [place] [address], [place] Glucose [Mass/Vol] 73 mg/dL Normal 70-100 [facility] Comment on above: Performed By: #### 2 0621 #### [facility] [address] [place] [address], [place] Potassium [Moles/Vol] 4.1 mmol/L Normal 3.5-5.1 [facility] Comment on above: Performed By: #### 2 0621 #### [facility] [address] [place] [address], [place] Protein [Mass/Vol] 7.6 g/dL Normal 6.0-8.3 [facility] Comment on above: Performed By: #### 2 0621 #### [facility] [address] [place] [address], [place] Sodium [Moles/Vol] 139 mmol/L Normal 136-145 [facility] Comment on above: Performed By: #### 2 0621 #### [facility] [address] HEP C GENOTYPING [id number] HEP C GENOTYPING 3a Normal [facility] Comment on above: Result Comment: INTE RPRETIVE INFORMATION: Hepatitis C Genotyping Hepatitis C Viral RNA is tested using reverse central supply assistant polymerase chain reaction (RT-PCR) to amplify a specific portion of the 5' untranslated region (5' UTR) of the viral genome. The amplified nucleic acid is sequenced bi-directionally using dye-terminator chemistry ([employer]). Sequencing data is compared to a database [...] 1. Test developed and characteristics determined by [employer]. See Compliance Statement B: [employer]/CS Performed by [employer], [address] [place] [id number] [email or web address], Gio Powell MD, Lab. Director HEP C RNA PCR QNTon 05-22-20 19 COPIES/ ML 6.31 IU/mL Normal [facility] Comment on above: Order Comment: This [...] infection. Performed By: #### 0 0121 #### [facility] [address] HCV PCR INTERP DETECTED Abnormal Not Detected [facility] Comment on [...] infection. Performed By: #### 0 0121 #### [facility] [address] HEP C RNA QNT [id number] IU/mL Normal [facility] Comment on [...] infection. Performed By: #### 0 0121 #### [facility] [address] HEPATITIS A ABS TOTAL [id number] n 05-22-2019 HEP A ABS(TOTAL) Negative Normal Negative [facility] Comment on above: Result Comment: Perf ormed by [employer], [address] [place] [address] [email or web address], Gio Powell MD, Lab. Director HEPATITIS B CORE ANTIBODYon 05-22-2019 HEP B CORE AB NONREACTIVE Normal NONREACTIVE [facility] Comment on above: Performed By: #### 2 0621 #### [facility] [address] HEPATITIS B SURFACE ANTIBODY QUANTon 05-22-2019 HEP B SURF AB 0.28 mIU/ml Normal [facility] Comment on above: Result Comment: INTE RPRETATION: NONREACTIVE<8.00 mIU/mL INDETERMINATE8.00 - 12.00 mIU/mL REACTIVE>12 mIU/mL Performed By: #### 2 0621 #### [facility] [address] HEPATITIS B SURFACE ANTIGEN QUALon 05-22-2019 HEP B SURF AG QUAL NONREACTIVE Normal NONREACTIVE [facility] Comment on above: Performed By: #### 2 0621 #### [facility] [address] [facility] [address] HIV COMBO 4Gon 05-22-2019 HIV COMBO Negative Normal NEGATIVE [facility] Comment on above: Performed By: #### 0 0121 #### [facility] [address] [facility]. [address] LIVER FIBROSIS CHRONIC VIRAL [id number] 05-22-2019 [id number],F IBROMETER 270 mg/dL Normal 131-293 [facility] ALT [Catalytic activity/Vol] 92 U/L High 5-50 [facility] Amylase [Catalytic activity/Vol] 18 U/L Normal 7-51 [facility] AST [Catalytic activity/Vol] 45 U/L Normal 9-50 [facility] CIRRHOMETER PATIENT SCORE 0.01 Normal [facility] EER FIBROMETER REPORT See Note Normal [facility] Comment on above: Result Comment: Acce ss [employer] Enhanced Report using either link below: -Direct access: [email or web address] -Enter Username, Password: [email or web address] Username: [email or web address] Password: [email or web address] FIBROMETER INTERPRETATION See Report Normal [facility] Comment on above: Result Comment: [17] [16] INTERPRETIVE INFORMATION: Fibrometer Interpretation Calculations for the final report are based on accurate data for age, gender, and platelet count. If any of this information needs to be corrected, please contact [employer] to request a recalculation. Client Services may be contacted at . The [employer] FibroMeter profile serves as a surrogate marker [...] combinations. Test developed and characteristics determined by [employer]. See Compliance Statement B: [employer]/CS Performed by [employer], [address] [place] [address] [email or web address], Gio Powell MD, Lab. Director FIBROMETER PLATELET CT 239 k/uL Normal Th e [facility] FIBROMETER PLATELET IND 95 % Normal 90-120 T he [facility] FIBROMETER PLATELET SCORE 0.3 Normal [facility] FIBROSIS METAVIR CLASSIFICATION F1[F1-F2] Normal [facility] Comment on above: Result Comment: INTE [...] is possible INFLAMETER METAVIR CLASSIFICATION A1/A2 Normal [facility] Comment on above: Result Comment: INTE RPRETIVE INFORMATION: InflaMeter Metavir Classification [employer]aMeter (activity score) comments A0/A1 Equal probability between A0 and A1 A1/A2 Equal probability between A1 and A2 A2/A3 Equal probability between A2 and A3 INFLAMETER PATIENT SCORE 0.51 Normal [facility] Urea nitrogen [Mass/Vol] 10 mg/dL Normal 7-25 [facility] Comment on above: Performed By: #### 2 0621 #### [address] PROTHROMBIN TIMEon 9 INR Coag (PPP) [Relative time] 1.04 {INR} Normal 0.91-1.16 [facility] Comment on above: Result Comment: [...] 1995;[id number]. Performed By: #### 2 0621 #### [facility] [address] PT Coag (PPP) [Time] 13.6 s Normal 12.3-14.8 [facility] Comment on above: Result Comment: ALL RESULTS MUST BE INTERPRETED WITH RESPECT TO BLOOD DRAWING ARTIFACT OR DILUTION ERROR OF ANTICOAGULANT AT THE TIME OF SAMPLING. Performed By: #### 2 0621 #### [address] TOX PANEL URINEon 05-22-2019 50 THC Negative Normal NEGATIVE [facility] Comment on above: Performed By: #### 2 0621 #### [address] BARBITURATES Negative Normal NEGATIVE [facility] Comment on above: Performed By: #### 2 0621 #### [facility] [address] Benzodiazepines Ql (U) Negative Normal NEGATIVE e [facility] Comment on above: Performed By: #### 2 0621 #### [facility] [address] Cocaine Ql (U) Negative Normal NEGATIVE [facility] Comment on above: Performed By: #### 2 0621 #### [facility] [address] Methadone Ql (U) Negative Normal NEGATIVE [facility] Comment on above: Performed By: #### 2 0621 #### [facility] [address] [place] [address], [facility] MONO AMPHET Negative Normal NEGATIVE [facility] Comment on above: Performed By: #### 2 0621 #### [facility] [address] [place] [address], [place] Opiates Ql (U) Negative Normal NEGATIVE [facility] Comment on above: Performed By: #### 2 0621 #### [facility] [address] [place] [address], [place] Phencyclidine Ql (U) Negative Normal NEGATIVE [facility] Comment on above: Performed By: #### 2 0621 #### [facility] [address] [place] [address], [place] PROPOXYPHENE Negative Normal NEGATIVE [facility] Comment on above: Performed By: #### 2 0621 #### [facility] [address] [place] [address], [place] TRICYCLICS Negative Normal NEGATIVE [facility] Comment on above: Performed By: #### 2 0621 #### [facility] [address] [facility] [place] [address], [facility] US LIVER WITH ELASTOGRAPHYon 04-30-2019 US LIVER WITH ELASTOGRAPHY [facility] Department of Radiology [address] [place] [id number] Patient Name: CLAUDINE ROSALES : 1995 Sex: M Age: Race: [...] fibrosis. Electronically signed by:Rj Kim. Transcribed by: [email or web address], User Resident: Electronically Signed by: RJ KIM @ 04/30/2019 10:11 AM Normal [facility] Comment on above: Order Comment: , , = ========= , Ordering Provider - RELL PRITCHETT MD , ALCOHOLon 06-13-2018 Ethanol [Mass/Vol] NONE DETECTED Normal [facility] Comment on above: Result Comment: Divi de by 1000 to convert mg/dL to percent. Example: 100mg/dL = 0.1%. Performed By: #### 2 0621 #### [facility] [address] [facility] [address], [facility] CBC COMPLETE BLOOD COUNTon 1 08-14-2017 Erythrocyte distribution width (RBC) [Ratio] 12.7 % Normal 11.5-15.0 [facility] Comment on above: Performed By: #### 5 0608 #### [facility] [address] [facility] [place] [address], [facility] Hematocrit (Bld) [Volume fraction] 43.7 % Normal 39.0-50.0 [facility] Comment on above: Performed By: #### 5 0608 #### [facility] [address] [facility] [place] [address], [facility] Hemoglobin (Bld) [Mass/Vol] 15.7 g/dL Normal 13.0-17.0 [facility] Comment on above: Performed By: #### 5 0608 #### [facility] [address] [facility] [place] [address], [facility] MCH (RBC) [Entitic mass] 30.4 pg Normal 27.0-33.0 [facility] Comment on above: Performed By: #### 5 0608 #### [facility] [address] [facility] [address], [facility] MCHC (RBC) [Mass/Vol] 35.9 g/dL High 32.0-35.0 [facility] Comment on above: Performed By: #### 5 0608 #### [facility] [address] [place] [id number], [facility] MCV (RBC) [Entitic vol] 84.7 fL Normal 82.0-98.0 T lilibeth [facility] Comment on above: Performed By: #### 5 0608 #### [facility] [address] [facility]. [address] Nucleated RBC/100 WBC (Bld) [Ratio] 0 % Normal 0-0 [facility] Comment on above: Performed By: #### 5 0608 #### [facility] [address] [facility] [place] [address], [facility] PLAT CNT 204 10*3/uL Normal 150-400 [facility] Comment on above: Performed By: #### 5 0608 #### [facility] [address] [facility]. [address] RBC (Bld) [#/Vol] 5.16 10*6/uL Normal 4.20-5.70 [facility] Comment on above: Performed By: #### 5 0608 #### [facility] [address] [facility]. [address] WBC (Bld) [#/Vol] 6.69 10*3/uL Normal 4.00-10.60 [facility] Comment on above: Performed By: #### 5 0608 #### [facility] [address] [facility]. [address] COMP METABOLIC PANELon 06-13 Albumin [Mass/Vol] 4.7 g/dL Normal 3.5-5.7 [facility] Comment on above: Performed By: #### 0 0121 #### [facility] [address] [facility]. [address] ALKALINE PHOSPH 37 IU/L Normal 34-104 [facility] Comment on above: Performed By: #### 0 0121 #### [facility] [address] [facility]. [address] ALT [Catalytic activity/Vol] 254 U/L High 7-52 [facility] Comment on above: Performed By: #### 0 0121 #### [facility] [address] [place] [address], [facility] AST [Catalytic activity/Vol] 111 U/L High 13-39 [facility] Comment on above: Performed By: #### 0 0121 #### [facility] [address] [place] [address], [place] Bilirubin [Mass/Vol] 0.7 mg/dL Normal 0.3-1.0 [facility] Comment on above: Performed By: #### 0 0121 #### [facility] [address] [place] [address], [place] Calcium [Mass/Vol] 9.3 mg/dL Normal 8.6-10.3 [facility] Comment on above: Performed By: #### 0 0121 #### [facility] [address] [place] [address], [place] Chloride [Moles/Vol] 103 mmol/L Normal 98-107 [facility] Comment on above: Performed By: #### 0 0121 #### [facility] [address] [place] [address], [place] CO2 [Moles/Vol] 29 mmol/L Normal 21-31 [facility] Comment on above: Performed By: #### 0 0121 #### [facility] [address] [place] [address], [place] Creatinine [Mass/Vol] 0.83 mg/dL Normal 0.70-1.30 [facility] Comment on above: Performed By: #### 0 0121 #### [facility] [address] [place] [address], [place] GFR/1.73 sq M predicted among blacks MDRD (S/P/Bld) [Vol rate/Area] mL/min/{1.73_m2} Normal >60 [facility] Comment on above: Performed By: #### 0 0121 #### [facility] [address] [place] [address], [facility] GFR/1.73 sq M predicted among non-blacks MDRD (S/P/Bld) [Vol rate/Area] mL/min/{1.73_m2} Normal >60 [facility] Comment on above: Performed By: #### 0 0121 #### [facility] [address] [place] [address], [place] Glucose [Mass/Vol] 99 mg/dL Normal 70-100 [facility] Comment on above: Performed By: #### 0 0121 #### [facility] [address] [place] [address], [place] Potassium [Moles/Vol] 4.3 mmol/L Normal 3.5-5.1 [facility] Comment on above: Performed By: #### 0 0121 #### [facility] [address] [place] [address], [facility] Protein [Mass/Vol] 6.9 g/dL Normal 6.0-8.3 [facility] Comment on above: Performed By: #### 0 0121 #### [facility] [address] [place] [address], [place] Sodium [Moles/Vol] 138 mmol/L Normal 136-145 [facility] Comment on above: Performed By: #### 0 0121 #### [facility] [address] [place] [address], [place] Urea nitrogen [Mass/Vol] 12 mg/dL Normal 7-20 [facility] Comment on above: Performed By: #### 0 0121 #### [facility] [address] [place] [address], [facility] HEP C GENOTYPING [id number] HEP C GENOTYPING 3a Normal [facility] Comment on above: Result Comment: INTE RPRETIVE INFORMATION: Hepatitis C Genotyping Hepatitis C Viral RNA is tested using reverse central supply assistant polymerase chain reaction (RT-PCR) to amplify a specific portion of the 5' untranslated region (5' UTR) of the viral genome. The amplified nucleic acid is sequenced bi-directionally using dye-terminator chemistry ([employer]). Sequencing data is compared to a database [...] 1. Test developed and characteristics determined by [employer]. See Compliance Statement B: [employer]/CS Performed by [employer], [address] [place] [id number] [email or web address], Gio Powell MD - Lab. Director HEP C RNA PCR [facility] 06-13-20 18 COPIES/ ML 5.77 IU/mL Normal [facility] Comment on [...] infection. Performed By: #### 3 1265 #### [address] HCV PCR INTERP DETECTED Abnormal Not Detected [facility] Comment on [...] infection. Performed By: #### 3 1265 #### [address] HEP C RNA QNT 186790 IU/mL Normal [facility] Comment on above: Order Comment: This [...] of HCV infection. Performed By: #### 3 4448 #### [address] HEPATITIS B SURFACE ANTIBODY QUANTon 06-13-2018 HEP B SURF AB 0.48 mIU/ml Normal [facility] Comment on above: Result Comment: INTE RPRETATION: NONREACTIVE<8.00 mIU/mL INDETERMINATE8.00 - 12.00 mIU/mL REACTIVE>12 mIU/mL Performed By: #### 3 4667, [address] #### [facility] [address] HEPATITIS B SURFACE ANTIGEN QUALon 06-13-2018 HEP B SURF AG QUAL NONREACTIVE Normal NONREACTIVE [facility] Comment on above: Performed By: #### 3 1400, [address] #### [facility] [address] [place] [address], [facility] HIV COMBO 4Gon 06-13-2018 HIV COMBO Negative Normal NEGATIVE [facility] Comment on above: Performed By: #### 3 0625 #### [facility] [address] [place] [address], [facility] LIVER FIBROSIS CHRONIC VIRAL [id number] 06-13-2018 [id number],F IBROMETER 282 mg/dL Normal 131-293 [facility] ALT [Catalytic activity/Vol] 337 U/L High 5-50 [facility] Amylase [Catalytic activity/Vol] 36 U/L Normal 7-51 [facility] AST [Catalytic activity/Vol] 132 U/L High 9-50 [facility] CIRRHOMETER PATIENT SCORE 0.05 Normal [facility] EER FIBROMETER REPORT See Note Normal [facility] Comment on above: Result Comment: [facility] Enhanced Report using either link below: -Direct access: [email or web address] -Enter Username, Password: [email or web address] Username: [email or web address] Password: [email or web address] FIBROMETER INTERPRETATION See Report Normal [facility] Comment on above: Result Comment: [36] [13] [17] [34] INTERPRETIVE INFORMATION: Fibrometer Interpretation Calculations for the final report are based on accurate data for age, gender, and platelet count. If any of this information needs to be corrected, please contact [employer] to request a recalculation. Client Services may be contacted at . The [employer] FibroMeter profile serves as a surrogate marker [...] combinations. Test developed and characteristics determined by [employer]. See Compliance Statement B: [employer]/CS Performed by [facility], [address] [place] [id number] [email or web address], Gio Powell MD - Lab. Director FIBROMETER PLATELET CT 204 k/uL Normal Th e [facility] FIBROMETER PLATELET IND 79 % Low 90-120 T he [facility] FIBROMETER PLATELET SCORE 0.77 Normal [facility] FIBROSIS METAVIR CLASSIFICATION F2/F3 Normal [facility] Comment on above: Result Comment: INTE [...] is possible INFLAMETER METAVIR CLASSIFICATION A2/A3 Normal [facility] Comment on above: Result Comment: INTE RPRETIVE INFORMATION: [employer]aMeter Metavir Classification InflaMeter (activity score) comments A0/A1 Equal probability between A0 and A1 A1/A2 Equal probability between A1 and A2 A2/A3 Equal probability between A2 and A3 INFLAMETER PATIENT SCORE 0.97 Normal [facility] PROTHROMBIN TIMEon 8 INR Coag (PPP) [Relative time] 1.16 {INR} Normal 0.91-1.16 [facility] Comment on above: Result Comment: [...] 1995;108:231S-246S. Performed By: #### 5 6101 #### [facility] [address] [place] [address], [facility] PT Coag (PPP) [Time] 14.8 s Normal 12.3-14.8 [facility] Comment on above: Result Comment: ALL RESULTS MUST BE INTERPRETED WITH RESPECT TO BLOOD DRAWING ARTIFACT OR DILUTION ERROR OF ANTICOAGULANT AT THE TIME OF SAMPLING. Performed By: #### 5 6101 #### [facility] [address] [place] [address], [facility] TOX PANEL URINEon 06-13-2018 50 THC Negative Normal NEGATIVE [facility] Comment on above: Performed By: #### 3 1079 #### [facility] [address] [place] [address], [facility] BARBITURATES Negative Normal NEGATIVE [facility] Comment on above: Performed By: #### 3 1079 #### [facility] [address] [place] [address], [place] Benzodiazepines Ql (U) Negative Normal NEGATIVE Th e [facility] Comment on above: Performed By: #### 3 1079 #### [facility] [address] [place] [address], [place] Cocaine Ql (U) Negative Normal NEGATIVE [facility] Comment on above: Performed By: #### 3 1079 #### [facility] [address] [place] [address], [place] Methadone Ql (U) Negative Normal NEGATIVE [facility] Comment on above: Performed By: #### 3 1079 #### [facility] [address] [place] [address], [place] MONO AMPHET Negative Normal NEGATIVE [facility] Comment on above: Performed By: #### 3 1079 #### [facility] [address] [place] [address], [place] Opiates Ql (U) Negative Normal NEGATIVE [facility] Comment on above: Performed By: #### 3 1079 #### [facility] [address] [place] [address], [place] Phencyclidine Ql (U) Negative Normal NEGATIVE [facility] Comment on above: Performed By: #### 3 1079 #### [facility] [address] [place] [address], [place] PROPOXYPHENE Negative Normal NEGATIVE [facility] Comment on above: Performed By: #### 3 1079 #### [facility] [address] [place] [address], [place] TRICYCLICS Negative Normal NEGATIVE [facility] Comment on above: Performed By: #### 3 1079 #### [facility] [address] [place] [address], [place] Vital Signs Date Time Vital Sign Value Performing Clinician Scooter baird 10-12-2023 08:29-0400 Diastolic blood pressure 52 mm[Hg] MD Trent Roach Work Phone: [facility] 10-12-2023 08:29-0400 Heart rate 58 /min MD Trent Roach Work Phone: [facility] 10-12-2023 08:29-0400 Respiratory rate 18 /min MD Trent Roach Work Phone: [facility] 10-12-2023 08:29-0400 SaO2% (BldA) [Mass fraction] 98 % MD Trent Roach Work Phone: [facility] 10-12-2023 08:29-0400 Systolic blood pressure 98 mm[Hg] MD Trent Roach Work Phone: [facility] 10-12-2023 06:31-0400 Body height 162.56 cm MD Trent Roach Work Phone: [facility] 10-12-2023 06:31-0400 Body temperature 98.7 [degF] MD Trent Roach Work Phone: [facility] 10-12-2023 06:31-0400 Body weight 69 kg MD Trent Roach Work Phone: [facility] Encounters Encounter Date Encounter Type Care Provider Facility Start: 02-29-2024 End: 02-29-2024 [facility]ly [facility] Start: 02-27-2024 Encounter for genera l adult medical examination without abnormal findings NO NO PCP [facility] Start: 02-27-2024 End: 02-27-2024 ambulatory [facility] Start: 02-13-2024 End: 02-13-2024 ambulatory [facility] Start: 02-13-2024 Encounter for genera l adult medical examination without abnormal findings [facility] Start: 10-16-2023 End: 10-20-2023 Emergency department patient visit ELDA CHAMPION [facility] Start: 10-16-2023 End: 10-19-2023 ambulatory NO PCP NO PCP [facility] Start: 10-12-2023 End: 10-12-2023 Emergency department patient visit MD Trent Roach Work Phone: [facility] Work Phone: Start: 06-15-2022 End: 06-15-[address] NONE LISTED REQUEST Facility: Plan of Treatment Date Care Activity Detail Author Patient Education Nausea and Vom iting, Adult ED Flu, Adult ED [facility] Work Phone: Patient referral [facility] Work Phone: Payers Date Payer Category Payer Self-pay 2022 Private Health Insurance [id number] 2022 Unknown [id number] 1994 Unknown [id number] 2.16.84 [id number] 1994 Unknown [id number] 2.16.8 [id number] 1994 Unknown [id number] 2.16.8 [id number] 1994 Unknown [id number] 2.16.8 [id number] 1994 Unknown [id number] 2.16.8 [id number] 1994 Unknown [id number] 2.16.8 [id number] 1994 Unknown [id number] 2.16.8 [id number] 1994 Unknown [id number] 2.16.8 [id number] 1994 Unknown [id number] 2.16.8 [id number] 1959 Self-pay [id number] Unknown [id number] 2.16.8 [id number] Social History Date Type Detail Facility Start: 10-12-2023 Tobacco smoking stat us AKIS Ex-smoker (finding) [facility] Start: 1995 Sex Assigned At Male F [facility] Evaluation note Note Date & Type Note Facility Evaluation note No assessment information availa ble [facility] Work Phone: Summary Purpose Family History No Family History Records Found Relationship Condition Age at Onset Recorded Date/T mohini father Hypertension Unknown Not Specified Hypertension Unknown Advance Directives No Advanced Directives Records Found Advance Directive Response Recorded Date/ Time Advance Directives No November 22 11:51am Chief Complaint and Reason for Visit Chief Complaint chest pain, vomiting Additional Source Comments (unrecognized sect ion and content) No Status Records FoundNo Status Records FoundNo Status Records FoundNo Status Records FoundNo Status Records FoundNo Status Records Found INFORMATION SOURCE (unrecogn ized section and content) DATE CREATED AUTHOR 05/31/2019 [facility] DATE CREATED AUTHOR AUTHOR'S ORGANIZ ATION 12/09/2021 [facility] DATE CREATED AUTHOR AUTHOR'S ORGANIZ ATION 06/18/2022 [facility] DATE CREATED AUTHOR AUTHOR'S ORGANIZ ATION 02/10/2024 [facility] DATE CREATED AUTHOR AUTHOR'S ORGANIZ ATION 02/15/2024 [facility] DATE CREATED AUTHOR AUTHOR'S ORGANIZ ATION 03/03/2024 [facility] Care Teams (unrecognized sec tion and [...] BE BASED ON THE PRIMARY CLINICAL RECORDS. [facility] [employer] [facility]. provides no warranty or guarantee of the accuracy or completeness of information in this document.
[2024-04-09 13:02] LABS: Basophils Absolute Auto 0.1 10^3/uL (0.0-0.1); Basophils Percent Auto 0.6 % (0.2-2.0); Eosinophils Absolute Auto 0.5 10^3/uL (0.0-0.7); Eosinophils Percent Auto 3.2 % (0.9-7.0); Hematocrit 47.8 % (42.0-54.0); Hemoglobin 17.2 g/dL (14.0-18.0); Immature Granulocytes Abs Auto 0.05 10^3/uL (0.00-0.03); Immature Granulocytes Pct Auto 0.3 % (0.0-0.5); Lymphocytes Absolute Auto 2.3 10^3/uL (1.2-3.8); Lymphocytes Percent Auto 13.8 % (20.5-60.0); Mean Corpuscular Volume 86.3 fL (80.0-94.0); Mean Platelet Volume 10.6 fL (9.5-13.5); Monocytes Absolute Auto 0.9 10^3/uL (0.3-0.8); Monocytes Percent Auto 5.6 % (1.7-12.0); Neutrophils Absolute Auto 12.9 10^3/uL (1.4-6.5); Neutrophils Percent Auto 76.5 % (43.0-75.0); Platelet Count 318 10^3/uL (150-450); Red Blood Count 5.54 10^6/uL (4.70-6.10); Red Cell Distribution Width 12.7 % (11.0-15.0); White Blood Count 16.9 10^3/uL (4.0-11.0)
[2024-04-09 13:17] LABS: Alanine Aminotransferase 16 U/L (16-63); Albumin Globulin Ratio 1.5; Albumin Level 4.7 g/dL (3.4-5.0); Alkaline Phosphatase 66 U/L (46-116); Amylase 65 U/L (25-115); Anion Gap 19.8; Aspartate Amino Transferase 14 U/L (15-37); BUN Creatinine Ratio 9.3; Bilirubin Direct 0.2 mg/dL (0.0-0.2); Chloride 101 mmol/L (98-107); Estimated GFR (African America >60 (>=60); Estimated GFR (Non-African Ame >60 (>=60); Globulin 3.1 g/dL; Glucose 113 mg/dL (74-106); Potassium 3.8 mmol/L (3.5-5.1); Sodium 138 mmol/L (136-145); Total Protein 7.8 g/dL (6.4-8.2)
--- NOTE | 2024-04-09 13:22 | CT_ITS ---
The [address] [address] Patient Name: CLAUDINE ROSALES MRN: [id number] date: 1995 Sex: M Assigned Patient Location: ER Current Patient Location: ER Accession/Order Number: [id number] Exam Date: 04/09/2024 13:40 Report Date: 04/09/2024 13:59 At the request of: SHABANA BALLARD Procedure: CT abdomen pelvis w con EXAM: CT scan of the abdomen and pelvis using 100 mL of IV iodinated contrast. Dose reduction technique used: Automated exposure control and/or adjustment of the mA and/or kV according to patient size and/or use of iterative reconstruction technique. REASON FOR EXAM: Diffuse abdominal pain, elevated WBC COMPARISON: None FINDINGS: Tiny hepatic cyst. 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 Normal appendix. No free fluid in the abdomen or pelvis. No free intraperitoneal air. No dilated or thickened loops of small bowel or colon. No hydronephrosis or obstructing renal or ureteral calculi. Liver, pancreas, spleen, bilateral kidneys, and bilateral adrenal glands are otherwise unremarkable. No lymphadenopathy in the abdomen or pelvis. Remainder unremarkable. CT/CT abdomen pelvis w con IMPRESSION: 1. No acute abnormalities in the abdomen or pelvis. 2. 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 Electronically authenticated by: MATT MUÑOZ Date: 04/09/2024 13:59
[2024-04-09] MEDS: 0.9 % SODIUM CHLORIDE 1,000 ML 1000 ML IV ×2 (13:23→14:17)
[2024-04-09] MEDS: ONDANSETRON PF 4 MG/2 ML VIAL IV (13:23)
[2024-04-09] MEDS: METOCLOPRAMIDE HCL 10 MG/2 ML VIAL IVP (13:24)
--- NOTE | 2024-04-09 13:28 | ED_ITS ---
HPI - Abdominal Pain General Chief Complaint: Abdominal Pain Stated Complaint: SEVERE ABDOMINAL PAIN, VOMITING, LIGHT HEADED Time Seen by Provider: 04/09/24 12:29 Source: patient Mode of arrival: walk-in Limitations: no limitations History of Present Illness HPI narrative: 28-year-old male presents to the emergency department for abdominal pain. He has been vomiting and this all started this time about 7:00 in the morning. He has had issues like this on and off for months and he continues to smoke marijuana. He has had numerous emergency department visits. The pain is severe and continuous. He states he is also had diarrhea in addition to vomiting. Related Data Home Medications ?Medication ?Instructions ?Recorded ?Confirmed hydroxyzine HCl 25 mg tablet 25 mg PO DAILY 10/09/23 04/09/24 sertraline 50 mg tablet 50 mg PO DAILY 10/09/23 04/09/24 Previous Rx's ?Medication ?Instructions ?Recorded ondansetron 4 mg disintegrating 4 mg PO Q6H PRN nausea and 04/09/24 tablet vomiting #20 tabs Allergies Allergy/AdvReac Type Severity Reaction Status Date / Time Penicillins AdvReac Severe Hives Verified 06/06/23 11:17 Review of Systems ROS Narrative A ten point review of systems is negative except as noted above. PFSH PFS Social History Smoking status: Current every day smoker Little interest or pleasure in doing things: not at all Feeling down, depressed, or hopeless: not at all Exam Narrative Exam Narrative: Nurses note and vital signs reviewed and patient is not hypoxic. General: The patient appears uncomfortable. He is laying on his right side with his hips and knees flexed. Skin: Warm, dry, no pallor noted. There is no rash noted. Head: Normocephalic, atraumatic Eye: Normal conjunctiva, no drainage Ears, Nose, Mouth, and Throat: oral mucosa is moist. Nares patent. Cardiovascular: Regular Rate and Rhythm Respiratory: Patient is in no distress, no accessory muscle use, lungs are clear to auscultation, no wheezing, rales or rhonchi Back: non-tender GI: Nondistended. Diffuse tenderness present. Musculoskeletal: The patient has no evidence of calf tenderness, no pitting edema, symmetrical pulses noted bilaterally Neurological: Awake and alert Psychiatric: Cooperative Constitutional Vital Signs, click to edit/add: Last Vital Signs Temp 97.7 F 04/09/24 12:32 Pulse 57 L 04/09/24 12:32 Resp 18 04/09/24 12:32 BP 128/77 04/09/24 12:32 Pulse Ox 100 04/09/24 12:32 O2 Del Method Room Air 04/09/24 12:32 Course Vital Signs Vital signs: Vital Signs Temperature 97.7 F 04/09/24 12:32 Pulse Rate 57 L 04/09/24 12:32 Respiratory Rate 18 04/09/24 12:32 Blood Pressure 128/77 04/09/24 12:32 Pulse Oximetry 100 04/09/24 12:32 Oxygen Delivery Method Room Air 04/09/24 12:32 Temperature 97.7 F 04/09/24 12:32 Pulse Rate 57 L 04/09/24 12:32 Respiratory Rate 18 04/09/24 12:32 Blood Pressure 128/77 04/09/24 12:32 Pulse Oximetry 100 04/09/24 12:32 Oxygen Delivery Method Room Air 04/09/24 12:32 MDM - Abdominal Pain MDM Narrative Medical decision making narrative: CAT scan is normal. Blood work is normal except for WBC of 16,000. He is feeling improved after the treatment given here, including IV fluids, Zofran, Reglan, and morphine. He is able to be discharged home. He was advised that it is most likely the marijuana smoking that is causing this issue for him or currently. Treatment diagnosis and follow-up were discussed with the patient. Differential Diagnosis Differential diagnosis: Likely abdominal pain, calculus of kidney, constipation, diverticulitis, gastroenteritis, pancreatitis and small bowel obstruction Lab Data Attestation: I reviewed the patient's lab results. Labs: Lab Results 04/09/24 Range/Units 12:48 WBC 16.9 H (4.0-11.0) 10^3/uL RBC 5.54 (4.70-6.10) 10^6/uL Hgb 17.2 (14.0-18.0) g/dL Hct 47.8 (42.0-54.0) % MCV 86.3 (80.0-94.0) fL MCH 31.0 (25.9-34.0) pg MCHC 36.0 H (29.9-35.2) g/dL RDW 12.7 (11.0-15.0) % Plt Count 318 (150-450) 10^3/uL MPV 10.6 (9.5-13.5) fL Neut % (Auto) 76.5 H (43.0-75.0) % Lymph % (Auto) 13.8 L (20.5-60.0) % [place] % (Auto) 5.6 (1.7-12.0) % Eos % (Auto) 3.2 (0.9-7.0) % Baso % (Auto) 0.6 (0.2-2.0) % Neut # (Auto) 12.9 H (1.4-6.5) 10^3/uL Lymph # (Auto) 2.3 (1.2-3.8) 10^3/uL [place] # (Auto) 0.9 H (0.3-0.8) 10^3/uL Eos # (Auto) 0.5 (0.0-0.7) 10^3/uL Baso # (Auto) 0.1 (0.0-0.1) 10^3/uL Abs Immat Gran (auto) 0.05 H (0.00-0.03) 10^3/uL Imm/Tot Granulo (auto) 0.3 (0.0-0.5) % Sodium 138 (136-145) mmol/L Potassium 3.8 (3.5-5.1) mmol/L Chloride 101 (98-107) mmol/L Carbon Dioxide 21.0 (21.0-32.0) mmol/L Anion Gap 19.8 BUN 9.0 (7.0-18.0) mg/dL Creatinine 0.97 (0.70-1.30) mg/dL Est GFR ( Amer) >60 (>=60) Est GFR (Non-Af Amer) >60 (>=60) BUN/Creatinine Ratio 9.3 Glucose 113 H (74-106) mg/dL Calcium 10.0 (8.5-10.1) mg/dL Total Bilirubin 1.0 (0.2-1.0) mg/dL Direct Bilirubin 0.2 (0.0-0.2) mg/dL AST 14 L (15-37) U/L ALT 16 (16-63) U/L Alkaline Phosphatase 66 (46-116) U/L Total Protein 7.8 (6.4-8.2) g/dL Albumin 4.7 (3.4-5.0) g/dL Globulin 3.1 g/dL Albumin/Globulin Ratio 1.5 Amylase 65 (25-115) U/L Lipase 28.0 (16.0-77.0) U/L Imaging Data CT scan - abdomen: Radiologist's impression: ITS Impressions Abdomen/Pelvis CT 04/09/24 13:22 IMPRESSION: 1. No acute abnormalities in the abdomen or pelvis. 2. 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 Electronically authenticated by: MATT MUÑOZ Date: 04/09/2024 13:59 Discharge Plan Discharge Chief Complaint: Abdominal Pain Clinical Impression: Cyclic vomiting syndrome Patient Disposition: Home, Self-Care Time of Disposition Decision: 15:08 Condition: Good Mode of Transportation: Private Vehicle Prescriptions / Home Meds: New ondansetron 4 mg tablet,disintegrating 4 mg PO Q6H PRN (Reason: nausea and vomiting) Qty: 20 0RF No Action hydroxyzine HCl 25 mg tablet 25 mg PO DAILY sertraline 50 mg tablet 50 mg PO DAILY Print Language: Turkmen Instructions: Acute Nausea and Vomiting (ED) Referrals: Trent Roach MD [Primary Care Provider] - 1 week
[2024-04-09] MEDS: MORPHINE SULFATE 4 MG/ML VIAL IV (14:53)
[2024-04-09 15:47] VITALS: BP 128/76; PULSE 87; O2SAT 99
== END 2024-04-09 15:48 | disposition home or self-care (01) ==
PROVIDERS: Emergency Provider Emergency Medicine; PCP Family Medicine
DX: R11.15 Cyclical vomiting syndrome unrelated to migraine (principal); F12.90 Cannabis use, unspecified, uncomplicated; F17.200 Nicotine dependence, unspecified, uncomplicated
CPT/HCPCS: 36415; 74177; 80048; 80076; 82150; 83690; 85025; 96361; 96374; 96375; 99285; J2270; J2405; J2765; Q9967